=== PATIENT | male | born 1980 | race Caucasian/White ===

== ENCOUNTER 2024-10-03 13:09 | Emergency (ER) | payer MEDICAID, SELFPAY ==
[2024-10-03 13:17] VITALS: BP 168/110; PULSE 65; TEMP 36.8; O2SAT 95; BMI 44.6
--- NOTE | 2024-10-03 13:22 | XR_ITS ---
[address] [address] Patient Name: ELIANE LOYOLA MRN: [id number] date: 1980 Sex: M Assigned Patient Location: ER Current Patient Location: Accession/Order Number: [id number] Exam Date: 10/03/2024 13:35 Report Date: 10/03/2024 14:05 At the request of: RABIA REBOLLAR Procedure: XR knee RT 4V PROCEDURE: XR knee RT 4V COMPARISON: None. HISTORY: fall FINDINGS: BONES:No acute fracture or dislocation. Mild narrowing of medial joint space. Marginal osteophyte formation SOFT TISSUES:Negative. No visible soft tissue swelling. EFFUSION:None visible. OTHER: Negative. XR/XR knee RT 4V IMPRESSION: Mild osteoarthritis. Electronically authenticated by: VLAD CORONA Date: 10/03/2024 14:05
--- NOTE | 2024-10-03 13:27 | ED.LOWEXI1 ---
HPI HPI - Extremity Injury (Lower) General Chief Complaint: Extremity Injury, Lower Stated Complaint: PAIN IN LOWER EXTRIMITY Time Seen by Provider: 10/03/24 13:20 Source: patient Mode of arrival: walk-in Limitations: no limitations History of Present Illness HPI Narrative: Patient is a 44-year-old male who presents to the emergency department for 2-week history of right knee pain which was exacerbated today when the patient was shoveling snow and twisted his knee. He denies any fall or direct injury to the area. He reports pain in the anterior knee both medially and laterally. No medications taken prior to arrival. He is able to ambulate but reports pain with doing so Related Data Home Medications ?Medication ?Instructions ?Recorded ?Confirmed lisinopril 20 mg tablet 20 mg PO DAILY 10/03/24 10/03/24 rosuvastatin 10 mg tablet 10 mg PO DAILY 10/03/24 10/03/24 Previous Rx's ?Medication ?Instructions ?Recorded hydrocodone 5 mg-acetaminophen 325 1 tab PO Q6H PRN pain 3 days #12 10/03/24 mg tablet tabs methocarbamol 750 mg tablet 750 mg PO TID PRN pain #20 tabs 10/03/24 methylprednisolone 4 mg tablets in See Rx Instructions .Route 10/03/24 a dose pack (Medrol (Tyrel)) .COMPLEX #21 ea Allergies Allergy/AdvReac Type Severity Reaction Status Date / Time sulfamethoxazole (From Allergy Severe Rash Verified 10/03/24 13:21 Bactrim) trimethoprim (From Bactrim) Allergy Severe Rash Verified 10/03/24 13:21 Opioid HPI Opioid Management Most Recent Pain and Opioid Data: No Data to Display Review of Systems ROS Constitutional Denies: fever or chills Ears, nose, mouth, and throat Denies: throat pain or nasal congestion Cardiovascular Denies: chest pain Respiratory Denies: shortness of breath or cough Gastrointestinal Denies: nausea or vomiting Musculoskeletal Reports: extremity pain, extremity swelling, joint pain and limited range of motion; Denies: back pain or neck pain Integumentary/Breast Denies: rash Neurological Denies: numbness in extremities or weakness in extremities Hematologic/Lymphatic Denies: easy bruising or easy bleeding PFSH PFSH Social History Little interest or pleasure in doing things: not at all Feeling down, depressed, or hopeless: not at all Exam Narrative Exam Narrative: Gen.: Awake, alert, in no distress Head: Normocephalic, atraumatic ENT: Moist mucous membranes Respiratory: No respiratory distress Extremities: Tenderness to the right anterior knee with no significant joint effusion noted, patella is stable with no laxity. No bony tenderness of the right anterior tibia. Normal dorsiflexion and plantarflexion of the right lower extremity. No posterior tenderness of the right knee Psych: Normal mood and affect Neuro: No focal neuro deficit Skin: Warm, dry, intact Constitutional Vital Signs, click to edit/add: Last Vital Signs Temp 98.2 F 10/03/24 13:17 Pulse 65 10/03/24 13:17 Resp 20 10/03/24 13:17 BP 168/110 H 10/03/24 13:17 Pulse Ox 95 10/03/24 13:17 O2 Del Method Room Air 10/03/24 13:17 Course Vital Signs Vital signs: Vital Signs Temperature 98.2 F 10/03/24 13:17 Pulse Rate 65 10/03/24 13:17 Respiratory Rate 20 10/03/24 13:17 Blood Pressure 168/110 H 10/03/24 13:17 Pulse Oximetry 95 10/03/24 13:17 Oxygen Delivery Method Room Air 10/03/24 13:17 Temperature 98.2 F 10/03/24 13:17 Pulse Rate 65 10/03/24 13:17 Respiratory Rate 20 10/03/24 13:17 Blood Pressure 168/110 H 10/03/24 13:17 Pulse Oximetry 95 10/03/24 13:17 Oxygen Delivery Method Room Air 10/03/24 13:17 MDM - Extremity Injury (Lower) MDM Narrative Medical decision making narrative: X-rays of the right knee show the patient has mild osteoarthritis with no other acute abnormalities. He is placed in an Ariel wrap, short course of analgesics, steroid taper and muscle relaxants given for home. Follow-up with orthopedics and return to the ER if symptoms change or worsen. Rest, ice, elevate. He is neurovascularly intact at discharge. SHARED APC VISIT, PHYSICIAN ATTESTATION: [id number] I performed a substantive part of the MDM during the patient?s E/M visit. I personally evaluated and examined the patient. I personally made or approved the documented management plan and acknowledge its risk of complications. . Medical Records Attestation: I reviewed the patient's medical records. Imaging Data XR knee: Attestation: I have reviewed the pertinent imaging results. Radiologist's impression: ITS Impressions Knee X-Ray 10/03/24 13:22 IMPRESSION: Mild osteoarthritis. Electronically authenticated by: VLAD CORONA Date: 10/03/2024 14:05 Discharge Plan Discharge Chief Complaint: Extremity Injury, Lower Clinical Impression: Pain in right knee, Right knee sprain Patient Disposition: Home, Self-Care Time of Disposition Decision: 14:10 Condition: Good Prescriptions / Home Meds: New hydrocodone-acetaminophen 5-325 mg tablet 1 tab PO Q6H PRN (Reason: pain) 3 Days Qty: 12 0RF Rx Instructions: M25.561 methocarbamol 750 mg tablet 750 mg PO TID PRN (Reason: pain) Qty: 20 0RF methylprednisolone [Medrol (Tyrel)] 4 mg tablets,dose pack See Rx Instructions .ROUTE .COMPLEX Qty: 21 0RF Rx Instructions: Taper as directed No Action lisinopril 20 mg tablet 20 mg PO DAILY rosuvastatin 10 mg tablet 10 mg PO DAILY Print Language: Indian Instructions: Knee Sprain (ED), Knee Pain (ED) Referrals: Physician,Non-Staff, [Physician] - 1 week Thuan Enciso MD [Physician] - As needed
[2024-10-03] MEDS: METHOCARBAMOL 500 MG TABLET 1000 MG PO (14:18)
[2024-10-03] MEDS: HYDROCODONE/ACET 5-325 MG TABLET 1 TAB PO (14:18)
[2024-10-03] MEDS: KETOROLAC TROMETHAMINE 10 MG TABLET PO (14:18)
[2024-10-03 14:24] VITALS: BP 152/100; PULSE 87; O2SAT 99
== END 2024-10-03 14:25 | disposition home or self-care (01) ==
PROVIDERS: Emergency Provider Emergency Medicine; PCP Nurse Practitioner
DX: S83.91XA Sprain of unspecified site of right knee, initial encounter (principal); M17.11 Unilateral primary osteoarthritis, right knee; X50.1XXA Overexertion from prolonged static or awkward postures, initial encounter; M25.561 Pain in right knee
CPT/HCPCS: 73564; 99284

== ENCOUNTER 2025-07-28 13:12 | Emergency (ER) | payer MEDICAID, SELFPAY ==
--- OUTSIDE RECORDS SUMMARY | 2025-07-19 14:27 | XMS_ITS | Continuity of Care Document ---
Author Organization [facility] Address [address] [place] [address] Phone Care Team Providers Care Fish And Wildlife Technician Name Role Phone Monica Nath APRN Attending Provider Yaneli Connell Primary Care Provider + Care Teams Patient Care Team Team Status: Active Member Role/Relationship Status Dates ADELE Bernal Primary Care Provider Active Patient Care Team Team Status: Inactive Member Role/Relationship Status Dates Monica Nath APRN Attending Provider Active Start: July 19, 2025 End: July 19, 2025[facility] ProviderActive Start: July 19, 2025 End: July 19, 2025 Chief Complaint and Reason for Visit Chief Complaint Admit Date Cough, congestion July 19, 2025 5 :45pm Allergies, Adverse Reactions, Alerts Allergen Type Severity Reaction Last Updated Verified Status Sulfa (Sulfonamide Antibiotics) Allergy Unknown swelling July 19 5:47pm Yes Active Social History Smoking Status Status Start Date End Date Date of Observa tion Never smoked tobacco (finding) August 10, 2024 9:07am Observation Status Observation Response Date of Response Legal Sex [facility] (finding) [facility] 1979 Family History Relationship Condition Age at Onset Recorded Date/T ernesto father Malignant neoplasm Unknown motherDiabetes mellitusUnknown Problems Active Problems Problem Diagnosis/Recorded Date Onset Date Stat us Acute embolism and thrombosi s of unspecified deep veins of right lower extremity July 19, 2025 5:48pm Unknown Active Viral URI with cough August 10, 2024 11:03am Unkno wn Active Benign essential HTN December 08, 2023 3:27pm Unknown Active Cough August 10, 2024 11:01am Unknown Active Hyperlipidemia December 08, 2023 3:27pm Unknown Ac tive Laryngitis August 10, 2024 10:42am Unknown Active 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, 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 Unknown Active Asthma December 08, 2023 3:27pm Unknown Acti ve Medications Medication Status Dose Units Route Directions Qty Days Refills S tart Date Stop Date End Date Reason(s) Instructions Adherence [facility] 10 [facility] 12:00amComplies with drug therapyLisinopril 20 mg tablet ActiveM[facility] 2023 12:00amComplies with drug therapyAlbuterol Sulfate 90 mcg/actuation HFA aerosol nwkdjxiNznpyonehset6QURHXEIDWSTMIJF5E2049Eakrg 2023 12:00amNoveer 2023 10:06amMethylprednisolone (Medrol (Tyrel)) 4 mg tablets,dose rebcGpmkmdvlytfj8EJmdg package vsdhukhemu811Oyiyr 2023 12:00amNoveer 2023 10:06amPO PER PKG DIR for 6 daysAlbuterol Sulfate 2.5 mg /3 mL (0.083 %) solution for nebulizationDiscontinued2.9WAYNPSROTBYTT1X as needed for shortness of breath or vuscfyog8301Pvbar 2023 12:00amNoveer 2023 10:06amApixaban (Eliquis) 5 mg dsskcbEysrgg5NMCXGeqzl dailyOctober 2024 12:00amComplies with drug therapyAlbuterol Sulfate 90 mcg/actuation HFA aerosol drueeevBafeqd8ORDXESKIAYUENPIqtek 6 hours as neededOctober 2024 12:00amComplies with drug therapy Relevant Diagnostic Tests and/or Laboratory Data Laboratory Results Test Collection Date/Time Result Date/Time Result Interpretation Reference Range Result Comment Performing Site POC SARS CoV-2 Antigen July 19, 2025 5:56pm Octob er 2024 6:17pm Negative Influenza Type A (Rapid)July 19, 2025 5:56pmOctober 2024 6:17pm NegativeInfluenza Type B (Rapid)July 19, 2025 5:[facility] 2024 6:17pmNegative Vital Signs Vital Reading Result Reference Range Collection Date/Time Height 68 [in_i] July 19, 2025 5:69vjNehbxr701.54 [facility] 20[facility] 5:48pmBody Ibrjbdutupa39.4 [degF]97.6-99.0[facility] 2024 5:48pmHeart Rate90 /ywz43-488 July 19, 2025 5:48pmRespiratory rate18 /ixr30-02Fqladwv 2024 5:48pm Oxygen saturation by Pulse scpovauv46 %95-100[facility]2024 5:48pmBP Ngazkjwy323 mm[Hg]100-140[facility] 2024 5:48pmBP Glcivlvmk307 mm[Hg]60-100 July 19, 2025 5:48pmBMI (Body Mass Index)47.7 kg/g5Pwovngg 2024 5:48pm Advance Directives Advance Directive Response Recorded Date/ Time Advance Directives No December 07 024 3:09pm Insurance Providers Guarantor Nik Hamilton l Address [address] [facility] [id number] Info.Home Phone: Coverage Status Update:2024 Payer Group Member ID Coverage Type Subscriber Relationship to Subscriber Effective Date Expiration Date Jeffery HARDWICK/CHUNG [id number] T Petkrystynael Id: [id number] [address] [facility] [address] Home Phone: SelfAnthem [place] Medicaid Id: [id number] T Pethtel Id: [id number] [address] [facility] [address] Home Phone: Self Encounters Encounter Location(s) Arrival/Admit Date Discharge/Departure Date Discharge/Departure Disposition Provider(s) Departed Physician/ Provider Office Visit -[facility] July 19, 2025 5:45pm July 19, 2025 6:26pm Discharged to home care or self care (routine discharge) Bereket Carlson APRN
[2025-07-28] VITALS (10 sets, daily range): BP systolic 148–150; BP diastolic 88–102; PULSE 61–91; TEMP 36.7; O2SAT 93–94; BMI 48.2
--- NOTE | 2025-07-28 13:36 | ECG_ITS ---
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 Measurements Intervals [place] Rate: 74 P: 33 IL: 158 QRS: -35 QRSD: 96 T: 39 QT: 380 QTc: 408 Interpretive Statements 1100 Sinus rhythm 7200 Abnormal left axis deviation 8003 Consistent with pulmonary disease 9150 abnormal ECG No previous ECG available for comparison Electronically Signed On 07-28-2025 18:07:49 EDT by OLGA RICHARDS M.D.
--- NOTE | 2025-07-28 13:38 | ED.GENADUL1 ---
HPI HPI - General Adult General Chief complaint: Upper Respiratory Infection Stated complaint: URTI COMPLAINTS Time Seen by Provider: 07/28/25 13:23 Source: patient Mode of arrival: walk-in Limitations: no limitations History of Present Illness HPI narrative: Patient is a 45-year-old male with a past medical history of asthma that presents to the emergency department with complaints of 1 month of cough, wheezing, SOB, and chest pain/tightness. Patient states a month ago he was sick and has persisted to have a cough and SOB/wheezing. He has been doing albuterol breathing treatments at home twice a day along with his rescue inhaler. Last Thursday he went to urgent care and was given doxycycline and prednisone. He has finished the steroids and has 1 more day of the doxycycline. He notes that he once had pneumonia about 6 times in 1 year, this was a few years ago. He also had a right knee replacement in November and had a DVT in the right lower extremity afterwards. He has just finished his 3 months of Eliquis and is on break in from the medication. Related Data Home Medications ?Medication ?Instructions ?Recorded ?Confirmed lisinopril 20 mg tablet 20 mg PO DAILY 10/03/24 10/03/24 rosuvastatin 10 mg tablet 10 mg PO DAILY 10/03/24 10/03/24 Previous Rx's ?Medication ?Instructions ?Recorded hydrocodone 5 mg-acetaminophen 325 1 tab PO Q6H PRN pain 3 days #12 10/03/24 mg tablet tabs methocarbamol 750 mg tablet 750 mg PO TID PRN pain #20 tabs 10/03/24 methylprednisolone 4 mg tablets in See Rx Instructions .Route 10/03/24 a dose pack (Medrol (Tyrel)) .COMPLEX #21 ea prednisone 50 mg tablet 50 mg PO DAILY 5 days #5 tabs 07/28/25 Allergies Allergy/AdvReac Type Severity Reaction Status Date / Time sulfamethoxazole (From Allergy Severe Rash Verified 07/28/25 13:17 Bactrim) trimethoprim (From Bactrim) Allergy Severe Rash Verified 07/28/25 13:17 Opioid HPI Opioid Management Most Recent Opioid Data: Last Pain Scale 6 10/03/24, 14:18 Review of Systems ROS Status of ROS 10 or more systems reviewed and unremarkable except as noted in history and below PFSH PFSH Social History Little interest or pleasure in doing things: not at all Feeling down, depressed, or hopeless: not at all Exam Narrative Exam Narrative: General: No distress, age-appropriate Skin: Warm, dry, no pallor. No rash. Head: Normocephalic, atraumatic. Neck: Supple, non-tender. Eye: Pupils are equal, round and EOMI. No scleral icterus. Ears, Nose, Mouth, and Throat: No nasal mucosal hypertrophy. Oral mucosa is moist, no posterior oropharynx erythema, uvula is mid-line Cardiovascular: Regular Rate and Rhythm without murmur, gallop or rub. Respiratory: No accessory muscle use or respiratory distress. Expiratory wheezing throughout bilateral lung clifton, no rales or rhonchi Chest Wall: no tenderness Musculoskeletal: Full ROM of all extremities, no calf or popliteal tenderness GI: Abdomen is soft, non-distended, non tender to palpation. No masses appreciated. No rebound, guarding, or rigidity noted. Neurological: A&O x4. No cranial nerve dysfunction observed. No truncal ataxia. Moves all extremities. Sensation intact. Psychiatric: Cooperative and interactive. Normal mood and affect. Constitutional Vital Signs, click to edit/add: Last Vital Signs Temp 98.0 F 07/28/25 13:17 Pulse 74 07/28/25 14:42 Resp 20 07/28/25 13:17 BP 150/102 H 07/28/25 13:17 Pulse Ox 93 L 07/28/25 14:42 O2 Del Method Room Air 07/28/25 14:42 Course Vital Signs Vital signs: Vital Signs Temperature 98.0 F 07/28/25 13:17 Pulse Rate 84 07/28/25 13:17 Respiratory Rate 20 07/28/25 13:17 Blood Pressure 150/102 H 07/28/25 13:17 Pulse Oximetry 94 L 07/28/25 13:17 Oxygen Delivery Method Room Air 07/28/25 13:17 Temperature 98.0 F 07/28/25 13:17 Pulse Rate 74 07/28/25 14:42 Respiratory Rate 20 07/28/25 13:17 Blood Pressure 150/102 H 07/28/25 13:17 Pulse Oximetry 93 L 07/28/25 14:42 Oxygen Delivery Method Room Air 07/28/25 14:42 Medical Decision Making MDM Narrative Medical decision making narrative: This is a 45-year-old male that presented to the ED with complaints of 1 month of cough, SOB, and chest tightness. He has a history of asthma and has been using his inhaler and breathing treatments morning and evening. He did have his right knee replaced in November and had a DVT afterwards. He just finished 3 months of Eliquis and had a repeat ultrasound that showed he still had a DVT in his RLE. He was following with Dr Earl in [place], [place]. He went to urgent care last week, doxycycline and prednisone given. He has 1 more day of doxycycline left. He denies any fevers, night sweats, or chills. He denies history of cancer. He states that he had pneumonia about 6 times in 1 year, this was a few years ago. On exam patient is in no distress, coughs on exam with deep inspiration, expiratory wheezes noted throughout lung clifton bilaterally but patient is moving air. BP is hypertensive 150/102, pulse is 84. Temp is afebrile 98 ?F. IV placed, EKG, troponin, CBC, CMP ordered. CTA chest ordered to eval for PNA or PE. EKG on arrival reviewed and notes normal sinus rhythm, abnormal left axis deviation consistent with pulmonary disease. DuoNeb and 125 mg Solu-Medrol IV ordered. CTA negative for PE or consolidation or effusion. Troponin WNL, no leukocytosis, lytes WNL. On reexamination wheezing has resolved, patient reports decreased SOB. I discussed results with him and will discharge to home given his stability in the ED. He has not required any supplemental oxygen and exhibited no respiratory distress. We discussed continuing his current asthma medications and regimen. Will give him a prednisone 50 mg x 5-day burst. I urged him to call his PCP today to get an appointment for next week. Patient will return to the ED with any new or worsening symptoms. Patient discharged in stable condition with plan for close PCP follow-up. Differential Diagnosis Differential Diagnosis: Asthma, PNA, PE, bronchitis Lab Data Lab results reviewed: Yes I reviewed the patient's lab results Labs: Lab Results 07/28/25 Range/Units 13:50 WBC 10.3 (4.0-11.0) 10^3/uL RBC 4.72 (4.70-6.10) 10^6/uL Hgb 15.9 (14.0-18.0) g/dL Hct 43.6 (42.0-54.0) % MCV 92.4 (80.0-94.0) fL MCH 33.7 (25.9-34.0) pg MCHC 36.5 H (29.9-35.2) g/dL RDW 14.2 (11.0-15.0) % Plt Count 273 (150-450) 10^3/uL MPV 10.2 (9.5-13.5) fL Neut % (Auto) 85.1 H (43.0-75.0) % Lymph % (Auto) 9.5 L (20.5-60.0) % Cavalier % (Auto) 4.0 (1.7-12.0) % Eos % (Auto) 0.8 L (0.9-7.0) % Baso % (Auto) 0.2 (0.2-2.0) % Neut # (Auto) 8.8 H (1.4-6.5) 10^3/uL Lymph # (Auto) 1.0 L (1.2-3.8) 10^3/uL Cavalier # (Auto) 0.4 (0.3-0.8) 10^3/uL Eos # (Auto) 0.1 (0.0-0.7) 10^3/uL Baso # (Auto) 0.0 (0.0-0.1) 10^3/uL Abs Immat Gran (auto) 0.04 H (0.00-0.03) 10^3/uL Imm/Tot Granulo (auto) 0.4 (0.0-0.5) % Sodium 139 (136-145) mmol/L Potassium 4.1 (3.5-5.1) mmol/L Chloride 103 (98-107) mmol/L Carbon Dioxide 29.1 (21.0-32.0) mmol/L Anion Gap 11.0 BUN 12.0 (7.0-18.0) mg/dL Creatinine 0.81 (0.70-1.30) mg/dL Est GFR ( Amer) >60 (>=60 mL/min/1.73m^2) Est GFR (Non-Af Amer) >60 (>=60 mL/min/1.73m^2) BUN/Creatinine Ratio 14.8 Glucose 146 H (74-106) mg/dL Calcium 8.7 (8.5-10.1) mg/dL Total Bilirubin 1.3 H (0.2-1.0) mg/dL AST 24 (15-37) U/L ALT 38 (16-63) U/L Alkaline Phosphatase 75 (46-116) U/L Troponin I High Sens 6.7 (4.0-76.1) pg/mL Total Protein 6.9 (6.4-8.2) g/dL Albumin 3.7 (3.4-5.0) g/dL Globulin 3.2 g/dL Albumin/Globulin Ratio 1.[address] scan - chest: Attestation: I have reviewed the pertinent imaging results. Radiologist's impression: ITS Impressions Chest CTA 07/28/25 13:44 IMPRESSION: NO EVIDENCE OF ACUTE PULMONARY EMBOLISM OR PROCESS. Impression dictated by: Manny Ivey Jr., D.OMarva 07/28/2025 2:41 PM Dictation Location: [employer] Electronically authenticated by: [id number] Y Date: 07/28/2025 14:41 ECG Data Attestation: ?I have reviewed the pertinent ECG results. Discharge Plan Discharge Chief Complaint: Upper Respiratory Infection Clinical Impression: Asthma exacerbation Patient Disposition: Home, Self-Care Time of Disposition Decision: 15:07 Condition: Good Mode of Transportation: Private Vehicle Prescriptions / Home Meds: New prednisone 50 mg tablet 50 mg PO DAILY 5 Days Qty: 5 0RF No Action lisinopril 20 mg tablet 20 mg PO DAILY rosuvastatin 10 mg tablet 10 mg PO DAILY hydrocodone-acetaminophen 5-325 mg tablet 1 tab PO Q6H PRN (Reason: pain) 3 Days Qty: 12 0RF Rx Instructions: M25.561 methocarbamol 750 mg tablet 750 mg PO TID PRN (Reason: pain) Qty: 20 0RF methylprednisolone [Medrol (Tyrel)] 4 mg tablets,dose pack See Rx Instructions .ROUTE .COMPLEX Qty: 21 0RF Rx Instructions: Taper as directed Print Language: Polish Instructions: Chronic Lung Disease and Infection Prevention (ED) Referrals: USAMA LOVELL [Primary Care Provider, Unknown] - 1 week Discharge Date/Time: 07/28/25 15:18
--- NOTE | 2025-07-28 13:44 | CT_ITS ---
[address] [address] Patient Name: ELIANE LOYOLA MRN: [id number] date: 1980 Sex: M Assigned Patient Location: ER Current Patient Location: .[facility] Accession/Order Number: [id number] Exam Date: 07/28/2025 14:24 Report Date: 07/28/2025 14:41 At the request of: RAFAEL BEAL Procedure: CT angio chest CT ANGIOGRAM OF THE CHEST, PULMONARY EMBOLISM PROTOCOL: CLINICAL INFORMATION: Shortness of breath and cough for one month. History of DVT. COMPARISON: None TECHNIQUE: Following intravenous injection of contrast CT scans of the chest were obtained using pulmonary embolism protocol. Coronal and sagittal reconstructed images, as well as volume rendered CT pulmonary angiographic images were also submitted.The CT exam was performed using one or more of the following dose reduction techniques: Automated exposure control, adjustment of the MA and/or Kv according to patient size, or use of the iterative reconstruction technique. FINDINGS: Pulmonary Vasculature: Contrast bolus is adequate for evaluation of pulmonary embolism. Pulmonary trunk appears nondilated. No filling defects are identified to suggest pulmonary embolism. Mediastinum : Thoracic aorta is normal in caliber. No pericardial effusion. No lymphadenopathy. The esophagus is grossly unremarkable. Lungs: Expiratory phase of imaging. No consolidation pneumothorax or pleural effusion. Upper abdomen: No acute findings Soft tissue/bones: Soft tissues surrounding the chest wall demonstrate no acute findings. Osseous structures demonstrate degenerative change. CT/CT angio chest IMPRESSION: NO EVIDENCE OF ACUTE PULMONARY EMBOLISM OR PROCESS. Impression dictated by: Manny Ivey Jr., D.O. 07/28/2025 2:41 PM Dictation Location: [employer] Electronically authenticated by: [id number] Y Date: 07/28/2025 14:41
[2025-07-28 13:59] LABS: Hematocrit 43.6 % (42.0-54.0); Hemoglobin 15.9 g/dL (14.0-18.0); Immature Granulocytes Abs Auto 0.04 10^3/uL (0.00-0.03); Immature Granulocytes Pct Auto 0.4 % (0.0-0.5); Lymphocytes Absolute Auto 1.0 10^3/uL (1.2-3.8); Mean Corpuscular HGB Conc 36.5 g/dL (29.9-35.2); Mean Corpuscular Hemoglobin 33.7 pg (25.9-34.0); Mean Corpuscular Volume 92.4 fL (80.0-94.0); Platelet Count 273 10^3/uL (150-450); Red Blood Count 4.72 10^6/uL (4.70-6.10); White Blood Count 10.3 10^3/uL (4.0-11.0)
[2025-07-28 14:14] LABS: Alanine Aminotransferase 38 U/L (16-63); Albumin Globulin Ratio 1.2; Albumin Level 3.7 g/dL (3.4-5.0); Alkaline Phosphatase 75 U/L (46-116); Anion Gap 11.0; Aspartate Amino Transferase 24 U/L (15-37); Blood Urea Nitrogen 12.0 mg/dL (7.0-18.0); Calcium 8.7 mg/dL (8.5-10.1); Carbon Dioxide 29.1 mmol/L (21.0-32.0); Chloride 103 mmol/L (98-107); Estimated GFR (African America >60 (>=60 mL/min/1.73m^2); Estimated GFR (Non-African Ame >60 (>=60 mL/min/1.73m^2); Globulin 3.2 g/dL; Glucose 146 mg/dL (74-106); Potassium 4.1 mmol/L (3.5-5.1); Sodium 139 mmol/L (136-145); Total Protein 6.9 g/dL (6.4-8.2)
--- OUTSIDE RECORDS SUMMARY | 2025-07-28 14:15 | XMS_ITS | Encounter Summary ---
Author Organization [facility] tem Address [id number] [address] [place] [address] Care Team Providers Care Tool Design Draftsperson Name Role Phone Roberto Carlos Cardoza APRN-ACTUARIAL DIRECTOR Primary Care Provider + Encounter Details DateTypeDepartmentCare Team (Latest Contact Info)Llnfiucfifp30/24/2025Telephone [facility] Internal Medicine - Family Medicine [address] [place] [phone] Ban Castillo CMA Social History Tobacco UseTypesPacks/DayYears UsedDateSmoking Tobacco: NeverSmokeless Tobacco: NeverAlcohol UseStandard Drinks/WeekCommentsNot Currently0 (1 standard drink = 0.6 oz pure alcohol)[facility] UtilitiesAnswerDate RecordedIn the past 12 months has the electric, gas, oil, or water company threatened to shut off services in your home?12/15/2024Social Connection and Isolation PanelAnswerDate RecordedIn a typical week, how many times do you talk on the phone with family, friends, or neighbors?More than three times a week12/15/2024How often do you get together with friends or relatives?More than three times a week12/15/2024How often do you attend restorationism or restorationism services?More than 4 times per year12/15/2024Do you belong to any clubs or organizations such as restorationism groups, unions, fraternal or athletic groups, or school groups?No12/15/2024How often do you attend meetings of the clubs or organizations you belong to?Never12/15/2024re you , , , , never , or living with a partner? 12/15/2024UDIT-CAnswerDate RecordedQ1: How often do you have a drink containing alcohol?Never12/15/2024Q2: How many drinks containing alcohol do you have on a typical day when you are drinking?Patient does not drink12/15/2024Q3: How often do you have six or more drinks on one occasion?Never12/15/2024Overall Financial Resource Strain (CARDIA)AnswerDate RecordedHow hard is it for you to pay for the very basics like food, housing, medical care, and heating?Not hard at all 12/15/2024PHQ-2AnswerDate RecordedTotal Vegnk260Finintermountain healthcare [place] of Occupational Health - Occupational Stress QuestionnaireAnswerDate RecordedDo you feel stress - tense, restless, nervous, or anxious, or unable to sleep at night because yourmind is troubled all the time - these days?Not at all12/15/2024 Exercise Vital SignAnswerDate RecordedOn average, how many days per week do you engage in moderate to strenuous exercise (like a brisk walk)?5 days10/09/2021n average, how many minutes do you engage in exercise at this level?90 min 10/09/2021RAPARE - TransportationAnswerDate RecordedIn the past 12 months, has lack of transportation kept you from medical appointments or from getting medications?No12/15/2024In the past 12 months, has lack of transportation kept you from meetings, work, or from getting things needed for daily living?No 12/15/2024Housing InstabilityAnswerDate RecordedAre you worried or concerned that in the next two months you may not have stable housing that you own, rent or stay in as a part of a household?No12/15/2024hildcareAnswerDate RecordedDo problems getting child support officer make it difficult for you to work or study?No 12/15/2024EmploymentAnswerDate RecordedDo you need help finding a local career center and/or a training program?No12/15/2024Hunger ScreeningAnswerDate Recorded Within the past 12 months we worried whether our food would run out before we got money to buy more.Never True02/28/2025Within the past 12 months the food we bought just didn't last and we didn't have money to get more.Never True 02/28/2025Purpose - LifeAnswerDate RecordedI have a purpose and direction in my life.Strongly Agree12/15/2024EducationAnswerDate RecordedWhat is the highest level of school you have completed or the highest degree you have received? Bachelor's degree (e.g., BA, AB, BS)10/09/2021ex and Gender InformationValue Date RecordedSex Assigned at BirthNot on fileLegal QfhVflq6010/10/2015 11:10 AM ESTGender IdentityNot on fileSexual OrientationNot on filedocumented as of this encounter Miscellaneous Notes * Telephone Encounter - Ban Castillo CMA - 07/21/2025 12:16 PM EDT Patient is having a tight chest and bringing up very little phlegm . He stated his chest hurts to cough He was seen at urgent care and they did not do a chest xr. [facility] since he is not getting better? * Telephone Encounter - Rocky Stauffer DO - 07/21/2025 12:16 PM EDT I read his urgent care note. They thought he did have a lower respiratory tract infection and they did put him on doxycycline which should work for that. I probably would not change anything. I am not sure what advantage it would be to check a chest x-ray right now. Maybe if he does not get any better then check one. * Telephone Encounter - Ban Castillo CMA - 07/21/2025 12:16 PM EDT NOTIFIED PATIENT documented in this encounter Plan of Treatment DateTypeDepartmentCare Team (Latest Contact Info)Bhgkrrwxqac96/02/2025 7:00 AM ESTOffice Visit [facility] [address] [place] [address] Roberto Carlos Cardoza, MANUFACTURING ASSISTANT-ACTUARIAL DIRECTOR [address], [address] [address] documented as of this encounter Goals GoalPatient Goal TypeAssociated ProblemsRecent ProgressPatient-Stated?Author home Eloisa Cormier LSW Note: Evaluation of progress towards goal: just back from [place], plan is home going with and outpt therapy at [facility] documented as of this encounter Visit Diagnoses Not on filedocumented in this encounter Additional Health Concerns AssessmentNoted TimePHQ-9 Depression Total Score: 6:54 AM EDTA Body Mass Index follow-up plan has been documented for the ixzftbq1502/28/2025 7:30 AM EDTdocumented as of this encounter Care Teams Team MemberRelationshipSpecialtyStart DateEnd Date Roberto Carlos Cardoza, MANUFACTURING ASSISTANT-ACTUARIAL DIRECTOR [address] [place] [address] PCP - GeneralInternal Medicine05/25/25documented as of this encounter
--- OUTSIDE RECORDS SUMMARY | 2025-07-28 14:15 | XMS_ITS | Clinical Summary ---
Author Organization [employer] [facility] tem Address [id number] [address] [place] [address] Care Team Providers Care Inspector Rubber Stamp Die Name Role Phone Roberto Carlos Cardoza APRN-RECREATION THERAPY AIDES TEACHER Primary Care Provider + Allergies Active AllergyReactionsCriticalityNoted AeyeZqyexmdaCnbbwydupwSzhozieu57/30/2017 NnjtppeifpOmfkfawo88/07/2025Sulfa (Sulfonamide Antibiotics)Iytodxlg98/30/2017 Medications MedicationSigDispense QuantityRefillsLast FilledStart DateEnd DateStatus albuterol (PROVENTIL,VENTOLIN) 2.5 mg /3 mL (0.083 %) nebulizer solution Indications:Pneumonia of right lower lobe due to infectious organism,Mild intermittent asthma with acute exacerbationInhale 3 mL (2.5 mg total) by nebulization every 6 (six) hours as needed for wheezing or shortness of breath. 300 mL Active albuterol (VENTOLIN HFA) 90 mcg/actuation inhaler Indications:Mild intermittent asthma without complicationInhale 2 puffs every 6 (six) hours as needed for wheezing or shortness of breath. 18 g 3Active cholecalciferol, vitamin D3, 5,000 units tablet Indications:Vitamin D deficiencyTake 1 tablet (5,000 Units total) by mouth in the morning. 30 each 5Active apixaban (ELIQUIS) 5 mg tablet Indications:Acute deep vein thrombosis (DVT) of right lower extremity, unspecified vein (CMS-HCC)Take 1 tablet (5 mg total) by mouth in the morning and 1 tablet (5 mg total) before bedtime. 60 tablet 505Active rosuvastatin (CRESTOR) 10 mg tablet Indications:Mixed hyperlipidemiaTake 1 tablet (10 mg total) by mouth in the morning. 90 tablet 5Active lisinopriL (PRINIVIL,ZESTRIL) 20 mg tablet Indications:Essential hypertensionTake 1 tablet (20 mg total) by mouth in the morning. 90 tablet 5Active Active Problems ProblemNoted DateDiagnosed DatePrimary osteoarthritis of right knee12/15/2024 Mild intermittent asthma without kdzjnfiqumdq70/24/2020Abnormal EKG012/21/2018 Abnormality of heart beat11/17/2018Chronic stasis cehwgnpjmx80/23/2017Arthritis of right knee04/02/20178383Ordotkylzhnwpv68/06/2017Family history of malignant neoplasm of prostate in fvctjh0504/02/2017Screening PSA (prostate specific antigen)04/02/2017Morbid bjvneam7204/02/2017Essential hypertensionMyotonic dystrophy Resolved Problems ProblemNoted DateDiagnosed DateResolved EuxlGsssjghoh94 Doocjolclft20Blood tests for routine general physical zebzraiigqz631Acute conjunctivitis of both eyes04/27/2018 11/17/2018Left corneal dcityomx04Urinary /17/2018 09/25/2020Urinary vtnrkrgku63Impacted cerumen of both ears Otitis azqdfmq42Encounter for weight loss ufeqvezush31Adult body mass index 35.0-35.9010/28/2017 1Pneumonia of right lower lobe due to infectious dbrkxlce77/13/2017 01/12/2018Mild persistent asthma without iyefckcduvbl721Cough Chronic pain of right kneeAsthma 11/02/2017 Encounters DateTypeDepartmentCare TttyDroxeemiceb60/24/2025Telephone [facility] - [facility] [address] [place] [address] Ban Castillo, [facility] 06/06/2025Refill [facility] - Family Medicine [address] [place] [address] Serena Frias, [facility] Mixed hyperlipidemia; Essential vfinooqacmcj18/13/2025Orders Only [facility] [address] [place] [phone] Daniel Earl MD Acute deep vein thrombosis (DVT) of right lower extremity, unspecified vein ([facility])05/10/2025Refill [facility] - Family Medicine [address] [place] [address] Nic Barfield, [facility] Acute deep vein thrombosis (DVT) of right lower extremity, unspecified vein ([facility])05/07/2025Refill [facility] - Family Medicine [address] [place] [address] Yaneli Connell, FLATWORK IRONER-RECREATION THERAPY AIDES TEACHER Acute deep vein thrombosis (DVT) of right lower extremity, unspecified vein ([facility])05/06/2025Results Follow-Up [facility] [address] [place] [address] Daniel Earl MD Vas venous duplex lwr single right05/04/2025 9:09 AM EDT - 05/04/2025 11:59 PM EDTHospital Encounter [facility] - [facility] [address] [place] [phone] Daniel Earl MD Acute deep vein thrombosis (DVT) of distal vein of right lower extremity ([facility]) Discharge Disposition: Home05/02/2025Travelfrom Last 3 Months Family History Medical HistoryRelationNameCommentsDiabetesFatherHypertensionFatherDiabetes Maternal GrandmotherDiabetesMotherAsthmaSisterAnesthesia problemsNeg HxBleeding DisorderNeg HxRelationNameStatusCommentsFatherAliveMaternal GrandmotherMother AliveSister Social History Tobacco UseTypesPacks/DayYears UsedDateSmoking Tobacco: NeverSmokeless Tobacco: Never Tobacco Cessation:Counseling Given: Not Answered Alcohol UseStandard Drinks/WeekCommentsNot Currently0 (1 standard drink = 0.6 oz pure alcohol)[facility] UtilitiesAnswerDate RecordedIn the past 12 months has the electric, gas, oil, or water company threatened to shut off services in your home?No12/15/2024Social Connection and Isolation PanelAnswerDate RecordedIn a typical week, how many times do you talk on the phone with family, friends, or neighbors?More than three times a week12/15/2024How often do you get together with friends or relatives?More than three times a week12/15/2024How often do you attend christian or worship services?More than 4 times per year12/15/2024Do you belong to any clubs or organizations such as christian groups, unions, fraternal or athletic groups, or [...] and heating?Not hard at all 12/15/2024PHQ-2AnswerDate RecordedTotal Sxqvc094Fin[facility] [place] of Occupational Health - Occupational Stress QuestionnaireAnswerDate [...] part of a household?No12/15/2024hildcareAnswerDate RecordedDo problems getting children's aide make it difficult for you to work [...] Date RecordedSex Assigned at BirthNot on fileLegal WvaWvpo1710/10/2015 11:10 AM ESTGender IdentityNot on fileSexual OrientationNot on file Last Filed Vital Signs Vital SignReadingTime TakenCommentsBlood Uom[place]ac521/83655/03/2025 9:39 AM EDT Mnprw8290 9:39 AM CWIFxmejlyfens95.5 ??C (97.7 ??F)02/28/2025 6:55 AM EDTRespiratory Gygz134802/28/2025 6:55 AM EDTOxygen Gonkmrgwzn98%04/03/2025 9:39 AM EDTInhaled Oxygen Concentration--Fasyay989.3 kg (316 lb)04/03/2025 9:39 AM CRAUmjwgm754.7 cm (5' 8 )04/03/2025 9:39 AM EDTBody Mass Index48.05004/03/2025 9:39 AM EDT Plan of Treatment DateTypeDepartmentCare Team (Latest Contact Info)Jaygtksqqpm42/02/2025 7:00 AM ESTOffice Visit [facility] [address] [place] [address] Roberto Carlos Cardoza, FLATWORK IRONER-RECREATION THERAPY AIDES TEACHER [address], [address] [address] Health MaintenanceDue DateLast DoneCommentsDTaP,Tdap and Td Vaccines (1 - Tdap) 1998Influenza Xsurciq7005/29/2025dult BMI Follow Up Plan02/28/2026 02/28/2025Depression Jxkefkoew29dult BMI Wtpyouqlk15/07/2026 04/03/2025Tobacco Rtycurxib69 Goals GoalPatient Goal TypeAssociated ProblemsRecent ProgressPatient-Stated?Author home Eloisa Cormier LSW Note: Evaluation of progress towards goal: just back from [place], plan is home going with and outpt therapy at [facility] Medical Devices ImplantedTypeAreaManufacturerDevice IdentifierShelf Expiration DateModel / Serial / LotComponent Fem 6 Kn Rt Crcte Rtn Legion Branch Por - Sna - [id number] Implanted:Qty: 1 on 12/15/20[facility]: KneeSMITH AND NEPHEW ORTHO05/02/2034 [id number] / NA / [id number] Tibia Baseplate W/Jrny Lock Implanted:Qty: 1 on 12/15/2024 by Raulito Toribio MD at [facility] ImplantRight: KneeSmith & Uiqbfv17/[id number] / NA / [id number] Cr High Flexwith Jrny Lock Articular Insert Xlpe Implanted:Qty: 1 on 12/15/2024 by Raulito Toribio MD at [facility] ImplantRight: KneeSmith & Jihocc51/[id number] / NA / [id number] Branch Porous Tka Implanted:Qty: 1 on 12/15/2024 by Raulito Toribio MD at [facility] ImplantSMIT AND NEPHEW [id number] / / ExplantedTypeAreaManufacturerDevice IdentifierShelf Expiration DateModel / Serial / LotMis Rimmed Pin Sterile Explanted:Qty: 1 on 12/15/2024 by Raulito Toribio MD at [facility] ImplantRight: KneeSmith & [id number] / NA / [id number] Fx 65mm Strl - Sna - [id number] Explanted:Qty: 2 on 12/15/2024 by Raulito Toribio MD at [facility] ImplantRight: KneeSMITH AND NEPHEW ORTHO05/12/2034 [id number] / NA / [id number] Procedures Procedure NamePriorityDate/TimeAssociated DiagnosisCommentsVASC VENOUS DUPLEX LOWER TCMLJCqtnpfr31/07/2025 9:38 AM EDT Acute deep vein thrombosis (DVT) of distal vein of right lower extremity (CMS-HCC) from Last 3 Months Results * Vas venous duplex lwr single right (05/04/2025 9:38 AM EDT)Anatomical Region LateralityModalityVascularRightUltrasoundSpecimen (Source)Anatomical Location / LateralityCollection Method / VolumeCollection TimeReceived Time05/04/2025 10:00 AM EDT Narrative 05/04/2025 8:08 PM EDT Previous: Previous lower extremity venous duplex exam performed 01/30/2025: RIGHT: ACUTE deep calf muscle vein thrombosis (DVT) Right: Minimally dilated noncompressible 1 of 2 deep calf muscle veins with hyperechoic intraluminal content and absent color flow. Remaining visualized deep venous segments are compressible with spontaneous phasic spectral Doppler waveforms. Superficial veins are compressible. Left: Common femoral vein is compressible with spontaneous phasic spectral Doppler waveforms. Conclusions: RIGHT: Deep calf muscle vein thrombosis (DVT), UNDETERMINED AGE. NO EVIDENCE of superficial vein thrombosis of the lower extremity. ??LEFT: NO EVIDENCE ??of deep vein thrombosis (DVT) ofthe common femoral vein. ? When compared to previous ??report significant changes were noted. Recommendations: Any questions prior to finalization, please call the reading physician during normal business hours at the phone number beside their name. Procedure Note Ana Zhao MD - 05/04/2025 Previous: Previous lower extremity venous duplex exam noqgktwns77/05/2025: RIGHT: ACUTE deep calf muscle vein thrombosis (DVT) Right: Minimally dilated noncompressible 1 of 2 deep calf muscle veinswith hyperechoic intraluminal content and absent color flow. Remainingvisualized deep venous segments are compressible with spontaneous phasicspectral Doppler waveforms. Superficial veins are compressible. Left: Common femoral vein is compressible with spontaneous phasic spectral Doppler waveforms. Conclusions: RIGHT: Deep calf muscle vein thrombosis (DVT), UNDETERMINEDAGE. NO EVIDENCE of superficial vein thrombosis of the lower extremity.LEFT: NO EVIDENCE of deep vein thrombosis (DVT) of the common femoralvein. When compared to previous report significant changes were noted. Recommendations: Any questions prior to finalization, please call thereading physician during normal business hours at the phone number besidetheir name. Authorizing ProviderResult TypeResult StatusDrew R Mady [facility] VASCULAR ORDERABLESFinal Result from Last 3 Months Insurance Advance Directives * Full Code (Latest Code Status on File) Date ActivatedDate InactivatedComments12/15/2024 10:40 AM12/16/2024 2:51 PM Care Teams Team MemberRelationshipSpecialtyStart DateEnd Date Roberto Carlos Cardoza, FLATWORK IRONER-RECREATION THERAPY AIDES TEACHER [address] [place] [address] PCP - GeneralInternal Medicine05/25/25
--- OUTSIDE RECORDS SUMMARY | 2025-07-28 14:15 | XMS_ITS | Clinical Summary ---
Author Organization [facility] Address [address] [place] [address] Care Team Providers Care Agricultural Engineering Teacher Name Role Phone Unavailable Primary Care Provider Unavailabl e Social History Tobacco UseTypesPacks/DayYears UsedDateSmoking Tobacco: Never AssessedSex and Gender InformationValueDate RecordedSex Assigned at BirthNot on fileLegal Sex Male12/10/2022 7:47 PM EDTGender IdentityNot on fileSexual OrientationNot on file Plan of Treatment Not on file
--- OUTSIDE RECORDS SUMMARY | 2025-07-28 14:17 | XMS_ITS | CCD ---
Author Organization [facility] Care Team Providers Care Bryologist Name Role Phone Shauna Man APRN Attending Provider Shauna Man Attending Unavailable Shauna Man Admitting Unavailable Connell 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, Usama Rojo Primary Care Provid er Connell 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, Usama Rojo Primary Care Provid er USAMA CONNELL Attending Unavailable USAMA CONNELL Referring Unavailable CONNELL, USAMA Rojo Primary Care Unavailable CONNELL, USAMA J Primary Care Unavailable USAMA CONNELL Attending Unavailable CONNELLGINIUSAMA J Referring Unavailable CONNELL, USAMA J Primary Care Unavailable CONNELL, USAMA Rojo Attending Unavailable CONNELLGINIUSAMA J Referring Unavailable Connell 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, Usama J Primary Care Provid er GINI CONNELLERIAlok Rojo Referring Unavailable CONNELL, USAMA J Primary Care Unavailable INDERJIT HENRY Referring Unavailable CONNELL, USAMA J Primary Care Unavailable DANIEL EARL Attending Unavailable USAMA CONNELL Referring Unavailable CONNELL, USAMA Darrel Primary Care Unavailable DANIEL EARL Attending Unavailable CONNELLGINIUSAMA J Referring Unavailable CONNELL, USMAA J Primary Care Unavailable CONNELL, USAMA J Referring Unavailable CONNELL, USAMA J Primary Care Unavailable TREVOR FRANK Referring Unavailable CONNELL, USAMA J Primary Care Unavailable TREVOR FRANK Referring Unavailable CONNELL, USAMA Darrel Primary Care Unavailable VLAD CUELLAR Attending Unavailable VLAD CUELLAR Referring Unavailable CONNELLUSAMA CESAR Primary Care Unavailable TANNA TORIBIO Admitting Unavailable TANNA TORIBIO Attending Unavailable TANNA TORIBIO Referring Unavailable CONNELL, USAMA Rojo Primary Care Unavailable CONNELL, USAMA J Primary Care Unavailable HANNAH ELMORE Attending Unavailable DANIEL EARL Attending Unavailable DANIEL EARL Referring Unavailable Unavailable Primary Care Provider UnavailRoberto Carlos You Primary Care Provider Monica Nath APRN Attending Provider Usama Kebede Primary Care Provider Allergies Allergy ClassificationReported Allergen(s)Allergy TypeDate of OnsetReaction(s) Facility (6 sources)Sulfonamides (Antibiotic); Translations: [SULFA (SULFONAMIDE ANTIBIOTICS)]Drug allergy (disorder)31-24-1564NbsjuqpibPromedica Memorial Hospital Repository (20 sources)predniSONE; Translations: [PREDNISONE]Drug Blahrxx69-66-7969LwdfmyelArkansas Methodist Medical Center (15 sources)Sulfonamides (Antibiotic)Propensity to adverse reactions to drug 49-88-9467JlutcdrtGwsNoiikrMary [facility] Medications Current Medications MedicationDrug Class(es)DatesSig (Normalized)Sig (Original)acetaminophen 325 mg / HYDROcodone bitartrate 5 mg oral tablet (1 source)Opioid AgonistStart: 12-07-2024 End: 59-95-7550cyuy 1 tablet by mouth every four hours as needed for pain HYDROcodone-acetaminophen (NORCO) 5-325 mg per tablet Take 1 tablet by mouth every 4 (four) hours as needed for pain. 12/07/2024 02/28/2025 Discontinued (Therapy completed)[id number] 200 actuat albuterol 0.09 mg/actuat metered dose inhaler (20 sources)beta2-Adrenergic AgonistStart: 24-92-9280ktjs 1 puff(s) by inhalation every six hours as neededAlbuterol Sulfate 90 mcg/actuation HFA aerosol inhaler Active 2 PUFF INHALATION Every 6 hours as needed July 19, 2025 12:00am Complies with drug therapyStart: 12-08-2023 End: 11-52-5778tzsg 2.5 mg by inhalation every eight hours as needed for wheezingAlbuterol Sulfate 2.5 mg /3 mL (0.083 %) solution for nebulization Discontinued 2.5 MG INHALATION Q8H as needed for shortness of breath or wheezing 63 7 0 December 08, 2023 12:00am August 100:06amStart: 12-08-2023 End: 47-66-9616qlfz 1 puff(s) by inhalation every four hoursAlbuterol Sulfate 90 mcg/actuation HFA aerosol inhaler Discontinued 2 PUFF INHALATION Q4H 1 14 0 Mar 2023 12:00am August 10, 2024 10:06amStart: 70-05-4495hlst 2 puff(s) by inhalation every six hours as needed for wheezingalbuterol (VENTOLIN HFA) 90 mcg/actuation inhaler Indications: Mild intermittent asthma without comp lication Inhale 2 puffs every 6 (six) hours as needed for wheezing or shortness of breath. 18 g 3 01/20/2023 ActiveStart: 29-73-3390pmpk 3 mL by inhalation every six hours as needed for wheezingalbuterol (PROVENTIL,VENTOLIN) 2.5 mg /3 mL (0.083 %) nebulizer solution Indications: Pneumonia of right lower lobe due to infectious organism , Mild intermittent asthma with acute exacerbation Inhale 3 mL (2.5 mg total) by nebulization every 6 (six) hours as needed for wheezing or shortness of breath. 300 mL 1 09/08/2017 Activeapixaban 5 mg oral tablet (16 sources)Factor Xa InhibitorStart: 02-28-2025 End: 53-99-9229zzgb 1 tablet by mouth twice dailyApixaban (Eliquis) 5 mg tablet Active 5 MG PO Twice daily July 19, 2025 12:00am Complies with drug therapy Start: 01-30-2025 End: 34-92-3791kxef 2 tablets by mouth twice daily, then take 1 tablet by mouth twice dailyapixaban (ELIQUIS) 5 mg (74 tabs) tablets,dose pack tablet Indications: Acute deep vein thrombosis (DVT) of distal vein of right lower extremity (CMS-HCC) Take 2 tablets by mouth twice daily for 7 days, then take 1 tablet twice daily 74 tablet 01/30/2025 02/28/2025 Discontinued (Therapy completed)Start: 58-99-6285vgyg 2 tablets by mouth twice daily, then take 1 tablet by mouth twice dailyapixaban (ELIQUIS) 5 mg (74 tabs) tablets,dose pack tablet Indications: Acute deep vein thrombosis (DVT) of distal vein of right lower extremity (CMS-HCC) Take 2 tablets by mouth twice daily for 7 days, then take 1 tablet twice daily 74 tablet 01/30/2025 ActiveStart: 01-29-2025 End: 08-53-5168oece 2 tablets by mouth in the morning, then take 2 tablets by mouth at bedtimeapixaban (ELIQUIS) 5 mg tablet Take 2 tablets (10 mg total) by mouth in the morning and 2 tablets (10 mg total) before bedtime. 14 tablet 01/29/2025 02/28/2025 Discontinued (Therapy completed)aspirin 325 mg delayed release oral tablet (2 sources)Platelet Aggregation Inhibitor, Nonsteroidal Anti-inflammatory Drug Start: 12-16-2024 End: 18-53-1154lwcu 1 tablet by mouth in the morningaspirin 325 mg EC tablet Take 1 tablet (325 mg total) by mouth in the morning. 12/16/2024 02/28/2025 Discontinued (Therapy completed)celecoxib 100 mg oral capsule (4 sources)Nonsteroidal Anti-inflammatory Drug End: 32-69-2770yuyp 1 capsule by mouth in the morning, then take 1 capsule by mouth at bedtimecelecoxib (CeleBREX) 100 mg capsule Take 1 capsule (100 mg total) by mouth in the morning and 1 capsule (100 mg total) before bedtime. 02/28/2025 Discontinued (Therapy completed)cholecalciferol 0.125 mg oral tablet (10 sources)Vitamin DStart: 77-36-1371tcpp 1 tablet by mouth once in the morning cholecalciferol, vitamin D3, 5,000 units tablet Indications: Vitamin D deficiency Take 1 tablet (5,000 Units total) by mouth in the morning. 30 each 11 12/05/2024 Activeibuprofen 800 mg oral tablet (3 sources)Nonsteroidal Anti-inflammatory DrugStart: 10-20-2023 End: 36-99-4755zolt 1 tablet by mouth every eight hours as needed for pain ibuprofen (MOTRIN) 800 mg tablet Indications: Strain of neck muscle, initial encounter Take 1 tablet (800 mg total) by mouth every 8 (eight) hours as needed for pain. HOLD MELOXICAM 60 tablet 10/20/2023 02/23/2024 Discontinued (Therapy completed)lisinopril 20 mg oral tablet (20 sources)Angiotensin Converting Enzyme InhibitorStart: 41-35-3795tqhm 1 tablet by mouth in the morninglisinopriL (PRINIVIL,ZESTRIL) 20 mg tablet Indications: Essential hypertension Take 1 tablet (20 mgtotal) by mouth in the morning. 90 tablet 3 06/08/2025 ActiveStart: 08-18-2023 End: 47-02-6314obue 1 tablet by mouth in the morninglisinopriL (PRINIVIL,ZESTRIL) 20 mg tablet Indications: Essential hypertension Take 1 tablet (20 mgtotal) by mouth in the morning. 90 tablet 3 06/08/2025 Active meloxicam 15 mg oral tablet (3 sources)Nonsteroidal Anti-inflammatory DrugStart: 07-23-2023 End: 54-55-2774vmii 1 tablet by mouth once daily as needed for painmeloxicam (MOBIC) 15 mg tablet TAKE 1 TABLET BY MOUTH EVERY DAY NEEDED FOR PAIN. DO NOT TAKE WITH OTHER NSAIDS IBUPROFEN OR NAPROXEN 07/23/2023 02/23/2024 Discontinued (Therapy completed)rosuvastatin calcium 10 mg oral tablet (20 sources)HMG-CoA Reductase InhibitorStart: 13-35-9263xghe 1 tablet by mouth in the morningrosuvastatin (CRESTOR) 10 mg tablet Indications: Mixed hyperlipidemia Take 1 tablet (10 mg total) by mouth in the morning. 90 tablet 06/08/2025 ActiveStart: 08-18-2023 End: 08-66-9595ptns 1 tablet by mouth in the morningrosuvastatin (CRESTOR) 10 mg tablet Indications: Mixed hyperlipidemia Take 1 tablet (10 mg total) by mouth in the morning. 90 tablet 06/08/2025 ActivetiZANidine 2 mg oral tablet (4 sources)Central alpha-2 Adrenergic AgonistStart: 10-20-2023 End: 15-13-2890hkTVSbqhxo (ZANAFLEX) 2 mg tablet Indications: Muscle spasms of neck TAKE 1 TABLET(2 MG) BY MOUTH EVERY 6 HOURS NEEDED FOR MUSCLE SPASMS. MAY CAUSE DROWSINESS 450 tablet 11/10/2023 02/23/2024 Discontinued (Therapy completed) Completed/Discontinued Medications MedicationDrug Class(es)DatesSig (Normalized)Sig (Original)methylPREDNISolone 4 mg oral tablet (6 sources)CorticosteroidStart: 12-08-2023 End: 96-10-3357pvcl 1 tablet by mouth onceMethylprednisolone (Medrol (Agnieszka)) 4 mg tablets,dose pack Discontinued 0 PO per package directions 21 0 December 08, 2023 12:00am August 10, 2024 10:06am PO PER PKG DIR for 6 daysStart: 10-20-2023 End: 49-52-9586jiffwiAJJCZBFcnhuj (MEDROL, AGNIESZKA,) 4 mg tablet Indications: Strain of neck muscle, initial encounterfollow package directions 21 tablet 10/20/2023 02/23/2024 Discontinued (Therapy completed)Start: 96-70-6627venucqTUTXXQJyvmoc (MEDROL, AGNIESZKA,) 4 mg tablet Indications: Strain of neck muscle, initial encounter follow package directions 21 tablet 0 10/20/2023 Active Problems Active Problems Problem ClassificationProblemDateDocumented DateEpisodic/ChronicAsthma (20 sources)Mild intermittent asthma; Translations: [Mild intermittent asthma, uncomplicated]Onset: 09-09-2017 Resolved: 486884-77-1044QowbhmtRzyoscria of lipid metabolism (20 sources)Hyperlipidemia; Translations: [Hyperlipidemia, unspecified]Onset: 261406-03-5960HthilahOznlgnenn hypertension (20 sources)Essential hypertension; Translations: [Essential (primary) hypertension]Onset: 911702-18-0191DeilfruTnaqlpoqrxasi and screening for infectious disease (2 sources)Contact with or exposure to other viral diseases; Translations: [Contact with or suspected exposureto severe acute respiratory syndrome coronavirus 2 (SARS-CoV-2)]80-32-3127TfxarvtgQwkgmqlknho deficiencies (2 sources)Vitamin D deficiency; Translations: [Vitamin D deficiency, unspecified]Onset: 761650-00-4015JxqgjgnJyffdgortkbpir (20 sources)Arthritis of right knee; Translations: [Unilateral primary osteoarthritis, right knee]Onset: 504341-05-8468UbzurspJydbz nervous system disorders (18 sources)Myotonic muscular dystrophy; 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]Onset: 434206-75-1455VrsvtiuToyzi nutritional; endocrine; and metabolic disorders (15 sources)Morbid obesity; Translations: [Morbid (severe) obesity due to excess calories]Onset: 484669-00-1005WntgfogZbwfg upper respiratory infections (12 sources)Viral upper respiratory tract infection; Translations: [Acute upper respiratory infection, unspecified]67-81-3415ExsmqdruSwldclose; thrombophlebitis and thromboembolism (11 sources)Acute deep vein thrombosis of lower limb; Translations: [Acute embolism and thrombosis of unspecified deep veins of right distal lower extremity]Onset: 506267-66-5175LdhkfhlbEzryjtbmxgjv (1 source)Cough, unspecified; Translations: [Cough, unspecified]Onset: 59-11-2317Pwuuwhudymlx (1 source)Annual ExamOnset: 67-18-1753Rvzlvmldkctc (1 source)preop clearanceOnset: 83-70-0724Hmfgdodcksku (1 source)same dayOnset: 55-30-7444Nkmysntdmmcn (1 source)right knee osteoarthritisOnset: 12-15-2024 Past or Other Problems Problem ClassificationProblemDateDocumented DateEpisodic/Chronic Administrative/social admission (20 sources)Patient encounter status; Translations: [Dietary counseling and surveillance]Onset: 04-02-2017 Resolved: 706939-95-0120PhhpwlnaCezfysi dysrhythmias (15 sources)Palpitations; Translations: [Palpitations]Onset: 12-21-2018 Resolved: 165541-80-3771YmgdihrkMpqgjnetuz associated with dizziness or vertigo (15 sources)Dizziness; Translations: [Dizziness and giddiness]Onset: 06-21-2020 Resolved: 198055-03-5380SwwbjthqWfsgwvsryoomq symptoms and ill-defined conditions (20 sources)Increased frequency of urination; Translations: [Frequency of micturition]Onset: 01-12-2018 Resolved: 248542-41-0149IvgwqhpnIebhb valve disorders (15 sources)Abnormal heart beat; Translations: [Unspecified abnormalities of heart beat]Onset: 853539-12-7312QbvtyitdJvzzvpvydtkc; infection of eye (except that caused by tuberculosis or sexually transmitteddisease) (15 sources)Acute conjunctivitis of bilateral eyes; Translations: [Unspecified acute conjunctivitis, bilateral]Onset: 04-27-2018 Resolved: 744391-15-8501ZmmwbgztGrvt disorders (15 sources)Mood disordersOnset: 10-20-2023 Resolved: Other connective tissue disease (2 sources)Muscle spasm of cervical muscle of neck; Translations: [Other muscle spasm]52-30-1706LluhytxlBvxzk connective tissue disease (2 sources)Other specified soft tissue disorders; Translations: [Other specified soft tissue disorders]Onset: 62-91-0629MnmjucdwPpnpq diseases of veins and lymphatics (15 sources)Stasis dermatitis; Translations: [Venous insufficiency (chronic) (peripheral)]Onset: 127949-74-4084CrnvtcfsLtcxs ear and sense organ disorders (15 sources)Otitis externa; Translations: [Unspecified otitis externa, unspecified ear]Onset: 11-02-2017 Resolved: 252998-66-5996EgjgczmAvkgu ear and sense organ disorders (15 sources)Impacted cerumen of bilateral ears; Translations: [Impacted cerumen, bilateral]Onset: 11-02-2017 Resolved: 673767-69-8935UbsieqawXbivr lower respiratory disease (18 sources)Cough; Translations: [Cough]Onset: 09-09-2017 Resolved: 519887-22-1872KcvadvncZkmst non-traumatic joint disorders (15 sources)Pain in right knee; Translations: [Pain in joint, lower leg]Onset: 07-20-2017 Resolved: 879843-66-4748UevsumycGlrio non-traumatic joint disorders (1 source)Knee painOnset: 08-36-2620QtbxlwzqVvlku nutritional; endocrine; and metabolic disorders (15 sources)Body mass index 30+ - obesity; Translations: [Body mass index (BMI) 35.0-35.9, adult]Onset: 10-28-2017 Resolved: 780214-50-4280FycpddiKvsvt screening for suspected conditions (not mental disorders or infectious disease) (18 sources)Electrocardiogram abnormal; Translations: [Abnormal electrocardiogram [ECG] [EKG]]Onset: 870439-45-4843EqlememaSoetgunaq (except that caused by tuberculosis or sexually transmitted disease) (15 sources)Infective pneumonia; Translations: [Pneumonia, unspecified organism] Onset: 09-09-2017 Resolved: 581349-35-0751QipxsbpeOvwambti codes; unclassified (15 sources)Family history of prostate cancer; Translations: [Family history of malignant neoplasm of prostate]Onset: 294368-77-9620EpzdnvqzYtuxdoc and strains (1 source)Strain of neck muscle; Translations: [Strain of muscle, fascia and tendon at neck level, initial encounter]13-56-1274ClqowhncTlwezzpazct injury; contusion (15 sources)Abrasion of left cornea; Translations: [Injury of conjunctiva and corneal abrasion without foreign body, left eye, initial encounter]Onset: 04-27-2018 Resolved: 860494-84-3991QobjhlmfAjoxdoqmqwld (15 sources)Onset: 10-20-2023 Resolved: 247271-08-4332Iztrhwpbhzwq (1 source)Preprocedural examination neje26-23-3713Orjnfsiieyre (1 source)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[facility])11-23-2024 Results Test NameValueInterpretationReference RangeFacilityInfluenza virus B Ag [Presence] in Upper respiratory specimen by Rapid immunoassayOrdered By: Monica Nath on 05-88-4978PWQKA Ag IA.rapid Ql (Nph)NegativePromedica Memorial HospitalNo Panel InformationOrdered By: Monica Nath on 64-99-0954Coicceyjk Type A (Rapid)NegativePromedica Memorial HospitalPO SARS CoV-2 Antigen NegativePromedica Memorial HospitalCB WITH AUTO DIFFERENTIALon 01-29-2025 BASOPHILS ABSOLUTE COUNT (10*3/UL) BY AUTOMATED COUNT0.0 10*3/uLNormalProMedica Saint Agnes Medical CenterComment on above:Performed By: #### CBCA #### [facility] ([address] [address] VIRBASOPHILS RELATIVE PERCENT BY AUTOMATED COUNT0.3 %Normal [facility] CenterComment on above:Performed By: #### CBCA #### [facility] ([address] [place] [address] VIRCELLAVISION DIFFERENTIAL TYPEAUTOMATED DIFFERENTIALScotland County Memorial Hospitalal [facility] CenterComment on above:Performed By: #### CBCA #### [facility] ([address] [place] [address] VIREosinophils (Bld) [#/Vol]0.3 10*3/uLNoalLouis Stokes Cleveland VA Medical CenterComment on above:Performed By: #### CBCA #### [facility] ([address] [place] [address] VIREOSINOPHILS RELATIVE PERCENT BY AUTOMATED COUNT3.2 %Normal [facility] CenterComchildren[facility] hospital [facility] [place] on above:Performed By: #### CBCA #### [facility] ([address] [place] [address] VIRErythrocyte distribution width (RBC) [Ratio]13.6 %Normal 11.5-15[facility] CenterComment on above:Performed By: #### CBCA #### [facility] ([address] [place] [address] VIRHematocrit (Bld) [Volume fraction]44.5 %Krjznt03-96 [facility] CenterComment on above:Performed By: #### CBCA #### [facility] ([address] [place] [address] VIRHemoglobin (Bld) [Mass/Vol]15.3 g/jXAbrurw02-93WcsBdbwcuLouis Stokes [facility] Medical CenterComment on above:Performed By: #### CBCA #### [address] [place] [address] VIRLYMPHOCYTES ABSOLUTE COUNT (10*3/UL) BY AUTOMATED COUNT2.1 10*3/uLNoSelect Medical TriHealth Rehabilitation HospitalComment on above:Performed By: #### CBCA #### [facility] ([facility]) [address] [place] [address] [place] [address] VIRLYMPHOCYTES RELATIVE PERCENT BY AUTOMATED COUNT21.2 %Normal [facility] CenterComchildren's hospital of [place] on above:Performed By: #### CBCA #### [facility] ([facility]) [address] [place], [place] [address] [address] VIRMCH (RBC) [Entitic mass]31.0 inAwgxop73-59EncYzlezaVal Verde Regional Medical CenterComment on above:Performed By: #### CBCA #### [facility] ([facility]) [address] [place] [address] [place] [address] VIRMCHC (RBC) [Mass/Vol]34.3 g/wUUginzg74-96WjgHqfgmtVal Verde Regional Medical CenterComment on above:Performed By: #### CBCA #### [facility] ([facility]) [address] [place] [address] [place] [address] VIRMCV (RBC) [Entitic vol]90 eMJiazcp91-855VclLfjgya [facility] HospitalComment on above:Performed By: #### CBCA #### [facility] ([facility]) [address] [place] [address] [place] [address] VIRMONOCYTES ABSOLUTE COUNT (10*3/UL) BY AUTOMATED COUNT1.1 10*3/uLNoSelect Medical TriHealth Rehabilitation HospitalComchildren's hospital [facility] [place] on above:Performed By: #### CBCA #### [facility] ([facility]) [address] [place], [place] [address] [place] [address] VIRMONOCYTES RELATIVE PERCENT BY AUTOMATED COUNT11.1 %Normal [facility] CenterComchildren[facility] hospital [facility] on above:Performed By: #### CBCA #### [facility] ([facility]) [address] [place] [address] [place] [address] VIRNEUTROPHILS ABSOLUTE COUNT BY AUTOMATED COUNT6.5 10*3/uL NormalLouis Stokes Cleveland VA Medical CenterComchildren's hospital of [place] on above:Performed By: #### CBCA #### [facility] ([facility]) [address] [place] [address] [place] [address] VIRNEUTROPHILS RELATIVE PERCENT BY AUTOMATED COUNT64.2 %Normal [facility] CenterComment on above:Performed By: #### CBCA #### [facility] ([facility]) [address] [place] [address] [place] [address] VIRPlatelet mean volume (Bld) [Entitic vol]8.0 fLNormal7-12 [facility] CenterComment on above:Performed By: #### CBCA #### [facility] ([facility]) [address] [place] [address] [place] [address] VIRPlatelets (Bld) [#/Vol]293 10*3/gWQayrct156-822BwbUyfsgg [facility] HospitalComment on above:Performed By: #### CBCA #### [facility] ([facility]) [address] [place] [address] [place] [address] VIRRBC COUNT4.93 X10E12/LNormal4.1-5.7[facility] CenterComment on above:Performed By: #### CBCA #### [facility] ([facility]) [address] [place] [address]. [place] [address] VIRWBC (Bld) [#/Vol]10.1 10*3/uLNormal4-11ProVal Verde Regional Medical CenterComment on above:Performed By: #### CBCA #### [facility] ([facility]) [address] [place] [address] [place] [address] VIRCOMPREHENSIVE METABOLIC PANELon 82-70-4138Uhfopvk [Mass/Vol]3.9 g/dLNormal3.2-5.3PThe Jewish HospitalComment on above: Performed By: #### CMP, CBCA, 08350-3 #### [facility] ([id number]) [address], [address] [place], [place] [address]GAK [Catalytic activity/Vol]67 U/TZqdpsp58-915OhdIaeeuqVal Verde Regional Medical CenterComment on above:Performed By: #### ELBA JIMENEZ, 11585-7 #### [facility] ([id number]) [address], [address] [place] [address]BGX [Catalytic activity/Vol]25 U/LNormal<=40ProVal Verde Regional Medical CenterComment on above:Performed By: #### ELBA JIMENEZ, 10017-5 #### [facility] ([id number]) [address], [address] [place], [place] [address]Zihqi gap [Moles/Vol]5 mmol/LNormal5-15ProVal Verde Regional Medical CenterComment on above:Performed By: #### ELBA JIMENEZ, 76482-3 #### [facility] ([id number]) [address], [address] [place], [place] [address]EMP [Catalytic activity/Vol]23 U/LNormal<=41ProVal Verde Regional Medical CenterComment on above:Performed By: #### ELBA JIMENEZ, 53357-1 #### [facility] ([id number]) [address], [address] [place], [place] [address]Qhcjcuhpp [Mass/Vol]1.5 mg/dLHigh0.3-1.2PThe Jewish HospitalComment on above:Performed By: #### ELBA JIMENEZ, 75814-6 #### [facility] ([id number]) [address], [address] [place], [place] [address]Agiyjwt [Mass/Vol]8.6 mg/dLNormal8.5-10.5PLutheran Medical Center HospitalComment on above:Performed By: #### ELBA JIMENEZ, 51856-8 #### [facility] ([id number]) [address], [address] [place], [place] [address]Tbmcgwqn [Moles/Vol]106 mmol/AYqsfvm15-733CrmUhrqiqVal Verde Regional Medical CenterComment on above:Performed By: #### ELBA JIMENEZ, 89319-9 #### [facility] ([id number]) [address] [address] [address] [place], [place] [address]BD[address] [Moles/Vol]27 mmol/BUlrbha11-52DcjJhfsztThe [facility] Comment on above:Performed By: #### ELBA JIMENEZ, 70607-0 #### [facility] ([id number]) [address], [address] [place], [place] [address]Hsieezzppm [Mass/Vol]0.73 mg/dLNormal0.70-1.20[facility] Medical CenterComment on above:Result Comment: METHOD TRACEABLE TO IDMS STANDARD Performed By: #### ELBA JIMENEZ, 81335-9 #### [facility] ([id number]) [address] [address] [address] [place], [place] [address]FGFC (CKD-EPI) NON-RACE DEPENDENT>^90Normal>=60[facility] CenterComment on above:Result Comment: eGFR not reported due to non-numeric value for Creatinine. Reported eGFR is based on the CKD-EPI 2020 equation that does not use a race coefficient.Performed By: #### ELBA JIMENEZ, 91632-3 #### [facility] ([id number]) [address] [address] [place], [place] [address]Xfydtdv [Mass/Vol]99 mg/wEHjujmf55-72EceDynzjlLouis Stokes [facility] Center Comment on above:Performed By: #### ELBA JIMENEZ, 25763-2 #### [facility] ([id number]) [address] [address] [place], [place] [address]Gkysvmhph [Moles/Vol]3.7 mmol/LNormal3.5-5.0Louis Stokes [facility] Medical CenterComment on above:Performed By: #### BARBARA CBCA, 19404-8 #### [facility] ([id number]) [address], [address] [place], [place] [address]Fifhqzg [Mass/Vol]7.1 g/dLNormal6.0-8.0ProVal Verde Regional Medical CenterComment on above:Performed By: #### BARBARA, CBCA, 66574-2 #### [facility] ([id number]) [address], [facility] [address] [place], [place] [address]Ibevoc [Moles/Vol]138 mmol/XVfrwfk426-017AmwEcikdh Fremont HospitalComment on above:Performed By: #### BARBARA, CBCA, 91084-3 #### [facility] ([id number]) [address], [address] [address]Ljei nitrogen [Mass/Vol]11 mg/dLNormal5-23ProVal Verde Regional Medical CenterComment on above:Performed By: #### BARBARA, CBCA, 32322-5 #### [facility] ([id number]) [address] [address]N-OOOCXmj 01-29-2025D NBGXN420 ug/mLHigh1-255ProVal Verde Regional Medical CenterComment on above:Result Comment: Results >255 ng/mL DDU: Results may be indicative of the presence of VTE. The use of the Wells score and further diagnostic tests should be considered. Elevated D-Dimer levels can be associated with DIC, neoplasm, , trauma and liver disease. Elevated levels of rheumatoidfactor may lead to an overestimation of the D-Dimer level.Performed By: #### BARBARA, CBCA, 48945-8 #### [facility] ([id number]) [address] [address]TG KNEE RT 3 VWSon 49-27-7873UD KNEE RT 3 VWSXR KNEE RT 3 VWS STUDY: Radiographs of the right knee TECHNIQUE: 4 views of the right knee COMPARISON: Right knee radiographs dated 12/15/2024 FINDINGS/IMPRESSION: 1. No acute fracture or dislocation. 2. Postsurgical changes status post right knee total arthroplasty without evidence of lucency to suggest hardware loosening or complication. 3. Small joint effusion. 4. Fabella. Finalized by Laurita Ward MD on 01/29/2025 2:20 PMNormalLouis Stokes Cleveland VA Medical CenterBASIC METABOLIC PANLon 81-01-0674Orrcv gap [Moles/Vol]6 mmol/LNormal5-15 [facility] Medical CenterComment on above:Performed By: #### JAIRO, HH #### [facility] ([id number]) [address] [place] [address], [place] [address]Pisyadd [Mass/Vol]8.8 mg/dLNormal8.5-10.5PThe Jewish HospitalComment on above:Performed By: #### JAIRO, HH #### [facility] ([id number]) [address] [place] [address], [place] [address]Xggklkcy [Moles/Vol]104 mmol/ASowndz29-503DolJsdhkhLouis Stokes Cleveland VA Medical CenterComment on above:Performed By: #### JAIRO, HH #### [facility] ([id number]) [address] [place] [address], [place] [address]WE3 [Moles/Vol]30 mmol/KVwhjmi03-14QerWxhltjThe Jewish Hospital Comment on above:Performed By: #### JAIRO, HH #### [facility] ([id number]) [address] [place] [address], [place] [address]Fbddrvdmmr [Mass/Vol]1.02 mg/dLNormal0.70-1.20Louis Stokes Cleveland [facility] Medical CenterComment on above:Result Comment: METHOD TRACEABLE TO IDMS STANDARD Performed By: #### JAIRO, HH #### [facility] ([id number]) [address] [place] [address], [place] [address]rQLY (CKD-EPI) NON-RACE DEPENDENT>90Normal>59ProVal Verde Regional Medical CenterComment on above:Result Comment: Reported eGFR is based on the CKD-EPI 2020 equation that does not use a race coefficient.Performed By: #### JAIRO, HH #### [facility] ([id number]) [address] [place] [address], [place] [address]Nfiebbk [Mass/Vol]114 mg/iQQhef96-78MpqAwlmwgLouis Stokes Cleveland [facility] Center Comment on above:Performed By: #### JAIRO, HH #### [facility] ([id number]) [address] [place] [address], [place] [address]Gjojtzfjy [Moles/Vol]4.7 mmol/LNormal3.5-5.0ProVal Verde Regional Medical CenterComment on above:Performed By: #### JAIRO, HH #### [facility] ([id number]) [address] [place] [address], [place] [address]Pdwljz [Moles/Vol]140 mmol/MOdhfck097-765LwxHpkore Fremont HospitalComment on above:Performed By: #### JAIRO, HH #### [facility] ([id number]) [address] [place] [address], [place] [address]Hafc nitrogen [Mass/Vol]14 mg/dLNormal5-23ProVal Verde Regional Medical CenterComment on above:Performed By: #### JAIRO, HH #### [facility] ([id number]) [address] [place] [address]SVIic 89-04-1302Vwpwdmiedc (Bld) [Volume fraction]45.7 %Normal 39-49ProVal Verde Regional Medical CenterComment on above:Performed By: #### JAIRO, HH #### [facility] ([id number]) [address] [place] [address]Ntyhafgoba (Bld) [Mass/Vol]15.6 g/cWZtgjdp12.0-17.0Louis Stokes [facility] Medical CenterComment on above:Performed By: #### JAIRO, HH #### [facility] ([id number]) [address] [place] [address], [place] [address]LO KNEE RT 1 OR 2 VWSon 70-46-1750HG KNEE RT 1 OR 2 VWSXR KNEE RT 1 OR 2 VWS XR KNEE RT 1 OR 2 VWS HISTORY: Knee replacement. COMPARISON: None. IMPRESSION: 1. Knee prosthesis, joint effusion, gas, swelling, no complication. Finalized by Stiven Bai MD on 12/15/2024 10:27 AMNormalLouis Stokes Cleveland VA Medical CenterECG 12 leadon 42-11-9532NLWAFNPBAAKSPVPwbVnupbx Health SystemCBC AND AUTO DIFFon 91-21-8157IPLDJOPY BASOPHIL0.0 X10E9/LNormal0.0-0.2PThe Jewish HospitalComment on above:Performed By: #### CMP, CBCA, 48316-6 #### [facility] ([id number]) [address], [address] [place], [place] [address]FISBIZSA NEUTROPHIL7.0 X10E9/LHigh1.5-6.6Louis Stokes [facility] VA Medical CenterComment on above:Performed By: #### CMP, CBCA, 81225-5 #### [facility] ([id number]) [address], [address] [place], [place] [address]Bvrdafzzt/100 WBC (Bld)0.5 %[facility] Comment on above:Performed By: #### CMP, CBCA, 57244-9 #### [facility] ([id number]) [address], [address] [place], [place] [address]Bxkrnyadeeg (Bld) [#/Vol]0.4 10*3/uLNormal0.0-0.4Louis [facility] Medical CenterComment on above:Performed By: #### CMP, CBCA, 27760-5 #### [facility] ([id number]) [address], [address] [place], [place] [address]Sxqhtcjazxa/100 WBC (Bld)3.6 %[facility] Comment on above:Performed By: #### CMP, CBCA, 26200-0 #### [facility] ([id number]) [address], [address] [place], [place] [address]Eqrcsyvyosx distribution width (RBC) [Ratio]14.2 %Normal 11.5-15.0Louis Stokes [facility] Medical CenterComment on above:Performed By: #### CMP, CBCA, 17925-5 #### [facility] ([id number]) [address] [address] [place], [place] [address]Tbhqivqnuz (Bld) [Volume fraction]47.3 %Xhxvrr68-52JsvAuoyqcVal Verde Regional Medical CenterComment on above:Performed By: #### CMP, CBCA, 37356-5 #### [facility] ([id number]) [address] [address] [place], [place] [address]Xdpcaohqis (Bld) [Mass/Vol]16.1 g/jFIfmdtd29.0-17.0ProVal Verde Regional Medical CenterComment on above:Performed By: #### CMP, CBCA, 05088-1 #### [facility] ([id number]) [address] [address] [place], [place] [address]Mbqaijmgmqi (Bld) [#/Vol]1.8 10*3/uLNormal1.0-3.5PThe Jewish HospitalComment on above:Performed By: #### CMP, CBCA, 72008-1 #### [facility] ([id number]) [address] [address] [place], [place] [address]Nwxzrnzeaws/100 WBC (Bld)18.2 %NormalProVal Verde Regional Medical Center Comment on above:Performed By: #### CMP, CBCA, 10127-3 #### [facility] ([id number]) [address] [address] [place], [place] [address]GJQ (RBC) [Entitic mass]31.1 xbIczszn30-46RqoIervqmVal Verde Regional Medical CenterComment on above:Performed By: #### CMP, CBCA, 36238-7 #### [facility] ([id number]) [address], [address] [place], [place] [address]LKQE (RBC) [Mass/Vol]34.1 g/zQNwbohl23-34CvoDfpjzqLouis Stokes Cleveland VA Medical CenterComment on above:Performed By: #### CMP, CBCA, 02589-2 #### [facility] ([id number]) [address], [address] [place], [place] [address]VDI (RBC) [Entitic vol]91 bZYhvpen53-619KptEhoxfy [facility]remont HospitalComment on above:Performed By: #### CMP, CBCA, 39891-5 #### [facility] ([id number]) [address], [address] [place], [place] [address]Fefrwbskb (Bld) [#/Vol]0.7 10*3/uLNormal0-0.9Louis Stokes [facility] Medical CenterComment on above:Performed By: #### CMP, CBCA, 60328-9 #### [facility] ([id number]) [address], [address] [place], [place] [address]Qazbivbxi/100 WBC (Bld)7.1 %NormalLouis Stokes Cleveland VA Medical Center Comment on above:Performed By: #### CMP, CBCA, 38461-5 #### [facility] ([id number]) [address], [address] [place], [place] [address]Ssgxxlurwtc/100 WBC (Bld)70.6 %[facility] Comment on above:Performed By: #### CMP, CBCA, 97504-2 #### [facility] ([id number]) [address], [address] [place], [place] [address]Hwhbhlip mean volume (Bld) [Entitic vol]9.0 fLNormal7-12 ProMRancho Springs Medical CenterComment on above:Performed By: #### CMP, CBCA, 48676-0 #### [facility] ([id number]) [address], [address] [place], [place] [address]Wslcouuzj (Bld) [#/Vol]225 10*3/sMLdxzcy755-228KgpVkihtyLouis Stokes Cleveland VA Medical CenterComment on above:Performed By: #### CMP, CBCA, 44743-4 #### [facility] ([id number]) [address], [address] [place], [place] [address]UGZ COUNT5.19 X10E12/LNormal4.10-5.70[facility] Comment on above:Performed By: #### CMP, CBCA, 87890-4 #### [facility] ([id number]) [address], [address] [place], [place] [address]ZRZ (Bld) [#/Vol]9.8 10*3/uLNormal4.0-11.0Louis Stokes [facility] Medical CenterComment on above:Performed By: #### CMP, CBCA, 47660-6 #### [facility] ([id number]) [address], [address] [place], [place] [address]RMU auto differentialon 62-80-6184Acpxrzaxt (Bld) [#/Vol]0 10*3/[facility] LakeView HospitalBasophils/100 WBC (Bld)0.5 %Providence HospitalEosinophils (Bld) [#/Vol]0.4 10*3/[facility] LakeView HospitalEosinophils/100 WBC (Bld)3.6 %Providence HospitalErythrocyte distribution width (RBC) [Ratio]14.2 %11.5 - 15.0 %ProMedicMercy Hospital SystemHematocrit (Bld) [Volume fraction]47.3 %39 - 49 %[facility]ja Medical CenteredicProMedica Toledo HospitalHemoglobin (Bld) [Mass/Vol]16.1 g/dL13.0 - 17.0 g/dLProvidence HospitalInterpretation and review of laboratory resultsAbnormTriHealth Bethesda North HospitalLymphocytes (Bld) [#/Vol]1.8 10*3/[facility] LakeView HospitalLymphocytes/100 WBC (Bld)18.2 %Memorial HospitalH (RBC) [Entitic mass]31.1 pg27 - 34 pgPGalion HospitalMCHC (RBC) [Mass/Vol]34.1 g/dL32 - 36 g/dLProvidence HospitalMCV (RBC) [Entitic vol]91 fL80 - 100 [facility] NorthlandMonocytes (Bld) [#/Vol]0.7 10*3/uLProvidence HospitalMonocytes/100 WBC (Bld)7.1 %[facility]idence HospitalNeutrophils (Bld) [#/Vol]7 10*3/[facility] City HospitalNeutrophils/100 WBC (Bld)70.6 % Providence HospitalPlatelet mean volume (Bld) [Entitic vol]9 fL7 - 12 fL Providence HospitalPlatelets (Bld) [#/Vol]225 10*3/[facility] RBC (Bld) [#/Vol]5.19 10*6/[facility] LakeView HospitalWBC corrected for nucl RBC Auto (Bld) [#/Vol]9.8Kindred HealthcareCOMPREHENSIVE METABOLIC PANELon 72-76-6968Rxgpbah [Mass/Vol]4.1 g/dLNormal3.2-5.3PThe Jewish HospitalComment on above:Performed By: #### ELBA JIMENEZ, 24894-3 #### [facility] ([id number]) [address], [address] [place], [place] [address]ION [Catalytic activity/Vol]70 U/MExgxta23-734CnbXdglwlLouis Stokes Cleveland VA Medical CenterComment on above:Performed By: #### ELBA JIMENEZ, 48138-4 #### [facility] ([id number]) [address] [facility], [address] [place], [place] [address]DHK [Catalytic activity/Vol]29 U/LNormal0-40Louis Stokes [facility] Medical CenterComment on above:Performed By: #### BARBARA CBCA, 49491-8 #### [facility] ([id number]) [address], [address] [place] [address]Jvwrq gap [Moles/Vol]9 mmol/LNormal5-15ProVal Verde Regional Medical CenterComment on above:Performed By: #### BARBARA, CBCA, 91413-4 #### [facility] ([id number]) [address], [address] [place], [place] [address]SLC [Catalytic activity/Vol]20 U/LNormal0-41ProVal Verde Regional Medical CenterComment on above:Performed By: #### BARBARA, CBCA, 93435-9 #### [facility] ([id number]) [address], [address] [place], [place] [address]Jkvmdovju [Mass/Vol]1.6 mg/dLHigh0.3-1.2PThe Jewish HospitalComment on above:Performed By: #### BARBARA, CBCA, 14140-4 #### [facility] ([id number]) [address], [address] [place], [place] [address]Qjsizlv [Mass/Vol]8.8 mg/dLNormal8.5-10.5PThe Jewish HospitalComment on above:Performed By: #### BARBARA, CBCA, 30001-2 #### [facility] ([id number]) [address], [address] [place], [place] [address]Bfxwboeg [Moles/Vol]104 mmol/HOqoesp72-709PuhMwdkxiVal Verde Regional Medical CenterComment on above:Performed By: #### BARBARA, CBCA, 55984-6 #### [facility] ([id number]) [address], [address] [place], [place] [address]IE5 [Moles/Vol]29 mmol/AIazcqk61-48AdyOronubMiami Valley Hospital on above:Performed By: #### BARBARA, CBCA, 15885-7 #### [facility] ([id number]) [address], [address] [place], [place] [address]Zyoszdqtwa [Mass/Vol]0.86 mg/dLNormal0.60-1.30ProVal Verde Regional Medical CenterComment on above:Result Comment: METHOD TRACEABLE TO IDMS STANDARD Performed By: #### ELBA JIMENEZ, 06374-3 #### [facility] ([id number]) [address], [address] [place], [place] [address]jWQS (CKD-EPI) NON-RACE DEPENDENT>90Normal>59ProVal Verde Regional Medical CenterComment on above:Result Comment: Reported eGFR is based on the CKD-EPI 2020 equation that does not use a race coefficient.Performed By: #### ELBA JIMENEZ, 50662-4 #### [facility] ([id number]) [address] [address] [place], [place] [address]Zijasox [Mass/Vol]165 mg/kXVidy48-54NyoJxqonnVal Verde Regional Medical Center Comment on above:Performed By: #### ELBA JIMENEZ, 44220-7 #### [facility] ([id number]) [address] [address] [place], [place] [address]Spgktwmpn [Moles/Vol]3.8 mmol/LNormal3.5-5.0ProVal Verde Regional Medical CenterComment on above:Performed By: #### ELBA JIMENEZ, 47188-7 #### [facility] ([id number]) [address] [address] [place], [place] [address]Jjamwqy [Mass/Vol]6.6 g/dLNormal6.0-8.0ProVal Verde Regional Medical CenterComment on above:Performed By: #### ELBA JIMENEZ, 04087-4 #### [facility] ([id number]) [address] [address] [place], [place] [address]Gnnokx [Moles/Vol]142 mmol/SFfqygd781-582GquDdqvyh [facility]remont HospitalComment on above:Performed By: #### ELBA JIMENEZ, 16852-1 #### [facility] ([id number]) [address], [address] [place], [place] [address]Rqoj nitrogen [Mass/Vol]13 mg/dLNormal5-23Louis Stokes [facility] Medical CenterComment on above:Performed By: #### CMP, CBCA, 77391-0 #### [facility] ([id number]) [address], [address] [place], [place] [address]Yozrgxmsmjpyh metabolic panelon 07-83-8291Jmngtpj [Mass/Vol]4.1 g/dL3.2 - 5.3 g/dLWhite Hospital SystemALP [Catalytic activity/Vol]70 U/L39 - 130 U/[facility] Health SystemALT No additional P-5'-P [Catalytic activity/Vol] 29 U/L0 - 40 U/[facility] Health SystemAnion gap [Moles/Vol]9 mmol/L5 - 15 mmol/[facility] Health SystemAST [Catalytic activity/Vol]20 U/L0 - 41 U/L Providence HospitalBilirubin [Mass/Vol]1.6 mg/dLHigh0.3 - 1.2 mg/dLWhite Hospital SystemCalcium [Mass/Vol]8.8 mg/dL8.5 - 10.5 mg/dLWhite Hospital System Chloride [Moles/Vol]104 mmol/L98 - 109 mmol/[facility] Health SystemCO2 [Moles/Vol]29 mmol/L22 - 32 mmol/[facility] SystemCreatinine [Mass/Vol] 0.86 mg/dL0.60 - 1.30 mg/dLProvidence HospitalComment on above:METHOD TRACEABLE TO IDHI STANDARDeGFR (CKD-EPI)non-race dependent- Stafford HospitalComment on above: Reported eGFR is based on the CKD-EPI 2020 equation that does not use a race coefficient. Glucose [Mass/Vol]165 mg/fPCdrz31 - 99 mg/dLProvidence Hospital Interpretation and review of laboratory resultsAbnormalProvidence Hospital Potassium [Moles/Vol]3.8 mmol/L3.5 - 5.0 mmol/[facility] SystemProtein [Mass/Vol]6.6 g/dL6.0 - 8.0 g/dLProMercy Health Perrysburg Hospital SystemSodium [Moles/Vol]142 mmol/L134 - 146 mmol/LProMedica Health SystemUrea nitrogen [Mass/Vol]13 mg/dL5 - 23 mg/dLProPennsylvania HospitalMRSA PCR NASALon 13-84-5504NSEK DNA AVI+probe Ql (Unsp spec)NegativeNormalNEGLouis Stokes Cleveland VA Medical CenterComment on above:Performed By: #### 48913-3 #### [facility] ([id number]) [address] [place] [address], [address] [place], [place] [address]Qtitmgq D 25 hydroxyon 41-29-7939Nyhmsot D+Metabolites [Mass/Vol]12.3 ng/mLLow30 - 100 ng/mLProvidence HospitalComment on above: Vitamin D status 25 [place] Vitamin D Deficiency <20 ng/mL Insufficiency 20-29 ng/mL Sufficiency 30-100 ng/mL Toxicity >100 ng/mL NOTE: A pediatric reference range has not been established by the armhole presser of this kit. The [place] [employer] recommends a Vitamin D level of = or >20ng/mL in infants and children. Vitamin D+Metabolites [Mass/Vol]on 77-02-7410Vzimrcgmcjjlym and review of laboratory resultsAbnormalProPennsylvania HospitalVITAMIN D 25 HYD TOT12.3 ng/gPHys43-633DzvQraywgLouis Stokes Cleveland VA Medical CenterComment on above:Result Comment: Vitamin D status 25 [place] Vitamin D Deficiency <20 ng/mL Insufficiency 20-29 ng/mL Sufficiency 30-100 ng/mL Toxicity >100 ng/mL NOTE: A pediatric reference range has not been established by the armhole presser of this kit. The [place] [employer] recommends a Vitamin D level of = or >20ng/mL in infants and children.Performed By: #### CMP, CBCA, 73471-5 #### [facility] ([id number]) [address], [address] [place], [place] [address]QG CHEST 2 VWSon 57-64-7939II CHEST 2 VWSXR CHEST 2 VWS Indication: Preop patient through asthma. TECHNIQUE: Frontal and lateral views of the chest are obtained and compared to prior exam dated 01/20/2023. FINDINGS: Heart and mediastinum are within normal limits. Focal consolidation, pleural effusion, orpneumothorax are not seen. No significant hyperaeration noted. Impression: 1. No acute pulmonary process seen. Finalized by Jayla Chen MD on 11/22/2024 1:06 PMNTrinity Health SystemXR Chest PA and Lateralon 20-43-4075Huginexivf: Preop patient through asthma. TECHNIQUE: Frontal and lateral views of the chest are obtained and compared to prior exam dated 01/20/2023. FINDINGS: Heart and mediastinum are within normal limits. Focal consolidation, pleural effusion, orpneumothorax are not seen. No significant hyperaeration noted. Impression: 1. No acute pulmonary process seen. Finalized by Jayla Chen MD on 11/22/2024 1:06 PMSECTRAPACSAchinger, Jayla Wells MD - 11/22/2024 Indication: Preop patient through asthma. TECHNIQUE: Frontal and lateral views of the chest are obtained and compared to prior exam dated 01/20/2023. FINDINGS: Heart and mediastinum are within normal limits. Focal consolidation, pleural effusion, orpneumothorax are not seen. No significant hyperaeration noted. Impression: 1. No acute pulmonary process seen. Finalized by Jayla Chen MD on 11/22/2024 1:06 PM [facility] HospitalMusic United SystemRadiology Study observation (narrative)[facility]ja Medical CenterWideAngle Metrics Beaumont HospitalXR Chest PA and LateralOrdered By: Jayla Chen on 86-41-4512MhjPcujgh [facility] Work Phone: cbc AND AUTO DIFFon 44-30-1786PPVYWGZT BASOPHIL0.1 X10E9/LNormal0.0-0.2ProMedica Lebanon Junction HospitalComment on above:Performed By: #### BARBARA ARREOLA, 24420-3, HA1C #### [facility] ([id number]) [address], [address] [place], [place] [address]DUHHUIYM NEUTROPHIL4.5 X10E9/LNormal1.5-6.6ProWilson Health HospitalComment on above:Performed By: #### CBCJavy, CMP, 90726-6, HA1C #### [facility] ([id number]) [address], [address] [place], [place] [address]Ydlrmvjkw/100 WBC (Bld)0.8 %NormalUniversity Hospitals Cleveland Medical Center Comment on above:Performed By: #### CBCJavy CMP, 64887-4, HA1C #### [facility] ([id number]) [address], [address] [place], [place] [address]Fobnfgsjrfo (Bld) [#/Vol]0.3 10*3/uLNormal0.0-0.4ProPremier Health Miami Valley HospitalComment on above:Performed By: #### CBCJavy, CMP, 65020-1, HA1C #### [facility] ([id number]) [address], [address] [place], [place] [address]Pgfuvuqnvea/100 WBC (Bld)3.5 %NormalUniversity Hospitals Cleveland Medical Center Comment on above:Performed By: #### CBCA, CMP, 24377-3, HA1C #### [facility] ([id number]) [address] [place], [place] [address]Kjntjrooidj distribution width (RBC) [Ratio]13.9 %Normal 11.5-15.0ProPremier Health Miami Valley HospitalComment on above:Performed By: #### CBCA, CMP, 27199-8, HA1C #### [facility] ([id number]) [address], [address] [place], [place] [address]Hxyifyewth (Bld) [Volume fraction]49.1 %Kdzo66-22FibKrgede Toledo HospitalComment on above:Performed By: #### CBCBARBARA Palafox, 94093-2, HA1C #### [facility] ([id number]) [address], [address] [place], [place] [address]Kdccegvyfh (Bld) [Mass/Vol]16.6 g/bVMzlndb44.0-17.0ProAultman Hospitalca [place] HospitalComment on above:Performed By: #### CBCBARBARA Palafox, 16869-0, HA1C #### [facility] ([id number]) [address], [address] [place], [place] [address]Dquvnokxyum (Bld) [#/Vol]2.5 10*3/uLNormal1.0-3.5[facility] [place] [facility] HospitalComment on above:Performed By: #### CBCBARBARA Palafox, 70310-0, HA1C #### [facility] ([id number]) [address], [address] [place], [place] [address]Zbfxkgxbwvf/100 WBC (Bld)31.2 %NormalProWilson Health Hospital Comment on above:Performed By: #### CBCBARBARA Palafox, 35854-1, HA1C #### [facility] ([id number]) [address], [address] [place], [place] [address]ZGI (RBC) [Entitic mass]31.0 tbDhbinl75-00PznWhgnza [place] HospitalComment on above:Performed By: #### CBCJavy CMP, 66946-8, HA1C #### [facility] ([id number]) [address], [address] [place], [place] [address]TOBB (RBC) [Mass/Vol]33.9 g/aPNvisup42-59RnwEttzcf [place] HospitalComment on above:Performed By: #### CBCA, CMP, 04114-0, HA1C #### [facility] ([id number]) [address], [address] [place], [place] [address]MPJ (RBC) [Entitic vol]92 cNLucqwo73-015KefCtqtus [place] HospitalComment on above:Performed By: #### CBCJavy CMP, 76475-7, HA1C #### [facility] ([id number]) [address], [address] [place], [place] [address]Oquwagskh (Bld) [#/Vol]0.6 10*3/uLNormal0-0.9[facility] [place] [facility] HospitalComment on above:Performed By: #### BARBARA ARREOLA, 23679-3, HA1C #### [facility] ([id number]) [address], [address] [place], [place] [address]Gvqcxmjue/100 WBC (Bld)8.0 %NormalUniversity Hospitals Cleveland Medical Center Comment on above:Performed By: #### CBCBARBARA Palafox, 29890-3, HA1C #### [facility] ([id number]) [address], [address] [place], [place] [address]Yeyafdwjucw/100 WBC (Bld)56.5 %[facility] Comment on above:Performed By: #### CBCBARBARA Palafox, 85511-2, HA1C #### [facility] ([id number]) [address], [address] [place], [place] [address]Lderutap mean volume (Bld) [Entitic vol]9.3 fLNormal7-12 [facility] HospitalComment on above:Performed By: #### CBCJavy, CMP, 57758-9, HA1C #### [facility] ([id number]) [address], [address] [place], [place] [address]Oysbynxsr (Bld) [#/Vol]241 10*3/pDDblxjs703-693OukTqktrs [place] HospitalComment on above:Performed By: #### CBCA, CMP, 17099-1, HA1C #### [facility] ([id number]) [address], [address] [place], [place] [address]YQU COUNT5.37 X10E12/LNormal4.10-5.70ProA[facility] Hospitalca [facility] Comment on above:Performed By: #### BARBARA ARREOLA, 49056-9, HA1C #### [facility] ([id number]) [address], [address] [place], [place] [address]JZT (Bld) [#/Vol]8.1 10*3/uLNormal4.0-11.0[facility] HospitalComment on above:Performed By: #### BARBARA ARREOLA, 80424-0, HA1C #### [facility] ([id number]) [address], [address] [place], [place] [address]DYGDMWYEWAXMA METABOLIC PANELon 84-10-8043Ncsyoeg [Mass/Vol]4.0 g/dLNormal3.2-5.3[facility] HospitalComment on above:Performed By: #### BARBARA ARREOLA, 90727-0, HA1C #### [facility] ([id number]) [address], [address] [place], [place] [address]MZV [Catalytic activity/Vol]67 U/DWvmjyz80-624DkbYwpkfn [place] HospitalComment on above:Performed By: #### BARBARA ARREOLA, 75747-0, HA1C #### [facility] ([id number]) [address], [address] [place], [place] [address]FIY [Catalytic activity/Vol]27 U/LNormal0-40[facility] [place] HospitalComment on above:Performed By: #### BARBARA ARREOLA, 12034-7, HA1C #### [facility] ([id number]) [address], [address] [place], [place] [address]Ypfrm gap [Moles/Vol]9 mmol/LNormal5-15[facility] Comment on above:Performed By: #### BARBARA ARREOLA, 29841-0, HA1C #### [facility] ([id number]) [address], [address] [place], [place] [address]GWH [Catalytic activity/Vol]20 U/LNormal0-41ProPremier Health Miami Valley HospitalComment on above:Performed By: #### BARBARA ARREOLA, 09100-3, HA1C #### [facility] ([id number]) [address], [address] [place], [place] [address]Tsgkkuccr [Mass/Vol]0.8 mg/dLNormal0.3-1.2ProMedOhioHealth Doctors Hospital HospitalComment on above:Performed By: #### BARBARA ARREOLA, 70807-2, HA1C #### [facility] ([id number]) [address], [address] [place], [place] [address]Pmrqglo [Mass/Vol]9.1 mg/dLNormal8.5-10.5POhio State Harding HospitalComment on above:Performed By: #### BARBARA ARREOLA, 55631-5, HA1C #### [facility] ([id number]) [address], [address] [place], [place] [address]Zzvkuqub [Moles/Vol]107 mmol/AQyjhmr06-894TbpKcmjsn [place] HospitalComment on above:Performed By: #### BARBARA ARREOLA, 53010-9, HA1C #### [facility] ([id number]) [address], [address] [place], [place] [address]YU4 [Moles/Vol]28 mmol/SPuvpgk47-53KkkXllbckOhio State Harding Hospital Comment on above:Performed By: #### BARBARA ARREOLA, 07726-2, HA1C #### [facility] ([id number]) [address], [address] [place], [place] [address]Tkeirgcpht [Mass/Vol]0.91 mg/dLNormal0.60-1.30ProPremier Health Miami Valley HospitalComment on above:Result Comment: METHOD TRACEABLE TO IDMS STANDARD Performed By: #### BARBARA ARREOLA, 26817-8, HA1C #### [facility] ([id number]) [address], [address] [place], [place] [address]qXCE (CKD-EPI) NON-RACE DEPENDENT>90Normal>59ProWilson Health HospitalComment on above:Result Comment: Reported eGFR is based on the CKD-EPI 2020 equation that does not use a race coefficient.Performed By: #### BARBARA ARREOLA, 54827-2, HA1C #### [facility] ([id number]) [address], [address] [place], [place] [address]Pyfvade [Mass/Vol]106 mg/vVCmgc05-05HijShkgzsUniversity Hospitals Cleveland Medical Center Comment on above:Performed By: #### BARBARA ARREOLA, 20722-1, HA1C #### [facility] ([id number]) [address], [address] [place], [place] [address]Xkvrurwej [Moles/Vol]4.1 mmol/LNormal3.5-5.0ProPremier Health Miami Valley HospitalComment on above:Performed By: #### BARBARA ARREOLA, 73732-1, HA1C #### [facility] ([id number]) [address], [address] [place], [place] [address]Rysrnst [Mass/Vol]6.6 g/dLNormal6.0-8.0[facility] Comment on above:Performed By: #### BARBARA ARREOLA, 94562-7, HA1C #### [facility] ([id number]) [address], [address] [place], [place] [address]Gohitj [Moles/Vol]144 mmol/ZWfuydx684-935UswUgbhpm [place] HospitalComment on above:Performed By: #### BARBARA ARREOLA, 12083-7, HA1C #### [facility] ([id number]) [address], [address] [place], [place] [address]Edey nitrogen [Mass/Vol]14 mg/dLNormal5-23ProWilson Health HospitalComment on above:Performed By: #### BARBARA ARREOLA, 33355-4, LEIDY #### [facility] ([id number]) [address], [address] [place], [place] [address]OST A1C (GLYCO-HGB)on 71-93-6518Sqiyhim [Mass/Vol]114 mg/dL NormalProWilson Health HospitalComment on above:Performed By: #### BARBARA ARREOLA, 04178-9, LEIDY #### [facility] ([id number]) [address], [address] [place], [place] [address]QtD2v (Bld) [Mass fraction]5.6 %Normal4.4-5.6ProWilson Health HospitalComment on above:Result Comment: NOTE ADA Guidelines Result HgbA1c Normal : less than 5.7 % Prediabetes : 5.7 % to 6.4 % Diabetes : > 6.4 % Use with caution in patients with abnormal hemoglobin variants as the half-life of red blood cells and in vivo glycation rates are affected.Performed By: #### BARBARA ARREOLA, 74448-8, LEIDY #### [facility] ([id number]) [address], [address] [place], [place] [address]Pbvva 1996 panelon 48-80-0097Zijisayxaee [Mass/Vol]149 mg/dLLow 150-200ProWilson Health HospitalComment on above:Performed By: #### BARBARA ARREOLA, 54683-3, LEIDY #### [facility] ([id number]) [address], [address] [place], [place] [address]Eidichjzryx in HDL [Mass/Vol]45 mg/dLNormal>39ProWilson Health HospitalComment on above:Result Comment: HDL <40 mg/dL - High Risk HDL > or = 40mg/dL- Desirable HDL >60 mg/dL - Negative Risk Performed By: ###Tanya ARREOLA CMP, 07820-9, HA1C #### [facility] ([id number]) [address], [address] [place], [place] [address]Chtzivhlexi in LDL [Mass/Vol]78 mg/dLNormal<130ProMediShelby Memorial Hospital HospitalComment on above:Result Comment: LDL <100 mg/dL - Desirable LDL >160 mg/dL - High Risk Performed By: ###Tanya ARREOLA CMP, 63460-8, HA1C #### [facility] ([id number]) [address], [address] [place], [place] [address]Bfdtwyvzsbf in VLDL [Mass/Vol]26 mg/dLNormal0-30ProWilson Health HospitalComment on above:Performed By: ###Tanya ARREOLA CMP, 37858-3, HA1C #### [facility] ([id number]) [address], [address] [place], [place] [address]GTZPJWGYLPO:HDL3.5Jmaljw9.0-5.0ProWilson Health HospitalComment on above:Performed By: ###Tanya ARREOLA CMP, 94770-1, HA1C #### [facility] ([id number]) [address], [address] [place], [place] [address]Fwqcuxlkgwml [Mass/Vol]128 mg/tARvqjfo47-070EdmCwqrur [place] HospitalComment on above:Performed By: ###Tanya ARREOLA CMP, 83049-0, HA1C #### [facility] ([id number]) [address] [facility], [address] [place], [place] [address]JhuOrdq Not Detectedon 08-07-4164LziItis Not DetectedNot detectedNormalNot DetecteThe [facility] Lincoln Physician GroupComment on above:Result Comment: This is a duplicate RP2.1 COVID (PCR) result to be used for statistical tracking purpose only. PERFORMED BY: [facility] [address] [place] [address] PATHOLOGIST BUSINESS MANAGER KALYN RESENDEZ M.D.Performed By: #### RESP PANEL UPP., BIOFIRECOVNOTDE #### [facility] [address] [place] [address] USACOVID-19 Detected/Not DetectedOrdered By: Shauna Man on 46-19-3405CQWM-CoV-2 (COVID-19) RNA AVI+non-probe Ql (Nph)Not detectedNot DetectKeenan Private HospitalComment on above:This is a duplicate RP2.1 COVID (PCR) result to be used for statistical tracking purpose only.No Panel InformationOrdered By: Shauna Man on 04-19-3875Fkjfi Strep (POC)[facility] HospitalRespiratory (Upper) Panel, PCRon 67-36-5608Ayqjhtirmhy (Upper) Panel, PCRComment collected at [facility] Adenovirus Not detected Bordetella parapertussis Not detected Chlamydia pneumoniae Not detected Coronavirus 229E Not detected Coronavirus HKU1 Not detected Coronavirus NL63 Not detected Coronavirus OC43 Not detected Influenza A Not detected Influenza B Not detected Human Metapneumovirus Not detected Mycoplasma pneumoniae Not detected Parainfluenza Virus 1 Not detected Parainfluenza Virus 2 Not detected Parainfluenza Virus 3 Not detected Parainfluenza Virus 4 Not detected Bordetella pertussis-ptxP Not detected Human Rhino/Enterovirus Not detected Resp. Syncytial Virus Not detected COVID-19 Detected/Not Detected Not detected Blank Space FLUA TEST INCLUDES Influenza A tests for the following clinically FLUA TEST INCLUDES significant subtypes: FLUA TEST INCLUDES - Influenza A FLUA TEST INCLUDES - Influenza A H1 FLUA TEST INCLUDES - Influenza A H1 2009 FLUA TEST INCLUDES - Influenza A H3 Blank Space PERFORMED BY: [place] [address] PATHOLOGIST BUSINESS MANAGER KALYN RESENDEZ M.D.[facility] Physician GroupComment on above: Performed By: #### RESP PANEL UPP., BIOFIRECOVNOTDE #### [place] [address] USARespiratory pathogens DNA and RNA panel - Nasopharynx by AVI with non-probe detectionOrdered By: Shauna Man on 15-93-7699Guhzxsmdwup pathogens DNA and RNA panel AVI+non-probe (Nph)Respiratory pathogens DNA and RNA panel - Nasopharynx by AVI with non-probe detectionPromedica Memorial Hospital Vital Signs Date TimeVital SignValuePerforming WplddrkwgMipirjtl26-35-6154 17:48-0400Body .72 Javier Connell EXCAVATOR OPERATOR-C Work Phone: [facility]10-22-2025 17:48-0400 Body mass index (BMI) [Ratio]47.7 kg/w9OcbonwyUsama Connell EXCAVATOR OPERATOR-C Work Phone: [facility]10-22-2025 17:48-0400 Body ernndukqnwt12.4 [degF]Usama Connell EXCAVATOR OPERATOR-C Work Phone: [facility]10-22-2025 17:48-0400 Body gabsia300.54 kgUsama Connell EXCAVATOR OPERATOR-C Work Phone: [facility]10-22-2025 17:48-0400 Diastolic blood wfpovpzj460 mm[Hg]Usama Connell EXCAVATOR OPERATOR-C Work Phone: [facility]10-22-2025 17:48-0400 Heart rate90 /minUsama Salazarillo EXCAVATOR OPERATOR-C Work Phone: [phone]10-22-2025 17:48-0400 Respiratory rate18 /minUsama Salazarillo EXCAVATOR OPERATOR-C Work Phone: [phone]10-22-2025 17:48-0400 SaO2% (BldA) [Mass fraction]95 %Usama Salazarillo EXCAVATOR OPERATOR-C Work Phone: [phone]10-22-2025 17:48-0400 Systolic blood jwxpoavc979 mm[Hg]Usama Connell EXCAVATOR OPERATOR-C Work Phone: [phone]66[facility]07-07-2025 09:39-0400 Body .7 cmDaniel Earl MD Work Phone: [phone] [place], [place] [address]07-07-2025 09:39-0400Body mass index (BMI) [Ratio]48.05 kg/m2Daniel Earl MD Work Phone: [phone])[address] [place], [place] [address]07-07-2025 09:39-0400Body bvawah776.34 kgDaniel Earl MD Work Phone: 1([phone])[address] [place], [place] [address]07-07-2025 09:39-0400Diastolic blood sfrmmtiw625 mm[Hg]Daniel Earl MD Work Phone: 1(104)[address] [place], [place] [address]07-07-2025 09:39-0400Heart rate 73 /minDdago Earl MD Work Phone: [phone] [place], [place] [address]07-07-2025 09:39-1995VmZ4% (BldA) [Mass fraction]93 %Daniel Earl MD Work Phone: [phone])[address] [place], [place] [address]07-07-2025 09:39-0400Systolic blood sslkbxco367 mm[Hg]Daniel Earl MD Work Phone: [phone])[address] [place], [place] [address]06-03-2025 06:55-0400Body ifprgi261.7 cmVmarilin Connell APRN-CAR SERVICER Work Phone: [facility]06-03-2025 06:55-0400Body mass index (BMI) [Ratio]47.83 kg/d7AtxedomUsama Connell APRN-CAR SERVICER Work Phone: [facility]06-03-2025 06:55-0400Body zpkehptqlkv80.7 [degF]Usama Connell APRN-CAR SERVICER Work Phone: [facility]06-03-2025 06:55-0400Body rtzimr576.7 kgUsama Connell APRN-CAR SERVICER Work Phone: [facility]06-03-2025 06:55-0400Diastolic blood mm[Hg]Usama Connell APRN-CAR SERVICER Work Phone: [facility]06-03-2025 06:55-0400Heart rate 88 /minUsama Connell APRN-GENET Work Phone: [facility]06-03-2025 06:55-0400 Respiratory rate16 /minUsama Connell APRN-CAR SERVICER Work Phone: [facility]06-03-2025 06:55-5780VbL6% (BldA) [Mass fraction]95 %Usama Connell APRN-CAR SERVICER Work Phone: [facility]06-03-2025 06:55-0400Systolic blood uofjqwim313 mm[Hg]Usama Connell APRN-CAR SERVICER Work Phone: [facility]05-05-2025 15:49-0400Body hnevnt411.7 cmDaniel Earl MD Work Phone: [facility]05-05-2025 15:49-0400Body mass index (BMI) [Ratio]45.92 kg/m2Daniel Earl MD Work Phone: [phone] [place], [place] [address]5-05-2025 15:49-0400Body .99 kgDaniel Earl MD Work Phone: 1([phone] [place], [place] 9603505-05-2025 15:49-0400Diastolic blood lpunmxni87 mm[Hg]Daniel Earl MD Work Phone: [phone] [place], [place] 3190605-05-2025 15:49-0400Systolic blood axmlcrwq049 mm[Hg]Daniel Earl MD Work Phone: 1([phone])924-[address] [place], [place] 9[address]3-10-2025 07:55-0400Body .7 cmVmarilin Connell 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 Work Phone: [facility]03-10-2025 07:55-0400Body mass index (BMI) [Ratio]46.38 kg/d7IrwhvrfUsama Salazarillo 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 Work Phone: [facility]03-10-2025 07:55-0400Body hpyadqqxfda72.9 [degF]Usama Salazarillo 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 Work Phone: [facility]03-10-2025 07:55-0400Body .35 kgUsama Salazarillo 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 Work Phone: [facility]03-10-2025 07:55-0400Diastolic blood ehwkppoz21 mm[Hg]Usama Salazarillo 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 Work Phone: [facility]03-10-2025 07:55-0400Heart rate 64 /minUsama Salazarillo 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 Work Phone: [facility]03-10-2025 07:55-0400 Respiratory rate20 /minWinifredrie Connell 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 Work Phone: [facility]03-10-2025 07:55-1045AaW1% (BldA) [Mass fraction]95 %Usama Salazarillo 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 Work Phone: [facility]03-10-2025 07:55-0400Systolic blood rpxehhqt487 mm[Hg]Usama Connell APRN-CAR SERVICER Work Phone: [facility]02-25-2025 09:01-0500Body ucqwhc046.7 [facility]02-25-2025 09:01-0500Body mass index (BMI) [Ratio]44.09 kg/m2Pmh [address] [place], [place] 3296302-25-2025 09:01-0500Body lphcue360.[address] [place], [place] 3296311-26-2024 07:10-0500Body aedoti391.7 Dustinmarilin Connell APRN-CAR SERVICER Work Phone: [facility]11-26-2024 07:10-0500Body mass index (BMI) [Ratio]43.91 kg/h7BqwlbyeUsama Connell 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 Work Phone: [facility]11-26-2024 07:10-0500Body iheawgaawry12.39 [degF]Usama Connell 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 Work Phone: [facility]11-26-2024 07:10-0500Body kgUsama Connell 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 Work Phone: [facility]11-26-2024 07:10-0500Diastolic blood rxifxgjy12 mm[Hg]Usama Connell 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 Work Phone: [facility]11-26-2024 07:10-0500Heart rate 69 /minUsama Connell 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 Work Phone: [facility]11-26-2024 07:10-5340SdB2% (BldA) [Mass fraction]95 %Usama Connell 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 Work Phone: [facility]11-26-2024 07:10-0500Systolic blood dqyoamiw285 mm[Hg]Usama Salazarillo 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 Work Phone: [facility]11-13-2024 09:08-0500Body .72 cmProm[facility]ica [facility] Hospital11-13-2024 09:08-0500Body mass index (BMI) [Ratio]43.9 kg/g3RfitjedsyPromedica Memorial Hospital11-13-2024 09:08-0500Body xccjgmxqzpi01.2 [degF][facility]11-13-2024 09:08-0500Body dwnrji739.08 kgPromedica Memorial Hospital11-13-2024 09:08-0500Diastolic blood eksfuimm49 mm[Hg][facility] 08-10-2024 09:08-0500Heart rate94 /[facility] 08-10-2024 09:08-0500Respiratory rate16 /[facility] 08-10-2024 09:08-7074SxW1% (BldA) [Mass fraction]92 %[facility]11-13-2024 09:08-0500Systolic blood mm[Hg][facility]05-28-2024 06:58-0400Body tnhefm519.7 cmVmarilin Connell APRN-CAR SERVICER Work Phone: [facility]05-28-2024 06:58-0400Body mass index (BMI) [Ratio]44.2 kg/s9PenrkunUsama Connell APRN-CAR SERVICER Work Phone: [facility]05-28-2024 06:58-0400Body bxxakuxlstx72.7 [degF]Usama Connell 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 Work Phone: [facility]05-28-2024 06:58-0400Body iynaij471.86 kgUsama Connell APRN-CAR SERVICER Work Phone: [facility]05-28-2024 06:58-0400Diastolic blood qdcdkqys78 mm[Hg]Usama Connell 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 Work Phone: [facility]05-28-2024 06:58-0400Heart rate 58 /minUsama Connell APRN-CAR SERVICER Work Phone: [facility] [employer] Mcbcqu61-76-5918 06:58-0400 Respiratory rate20 /minUsama Connell APRN-CAR SERVICER Work Phone: [facility]05-28-2024 06:58-1587XcV7% (BldA) [Mass fraction]96 %Usama Connell APRN-CAR SERVICER Work Phone: [facility]05-28-2024 06:58-0400Systolic blood auvprihc590 mm[Hg]Usama Connell APRN-CAR SERVICER Work Phone: [facility]01-23-2024 11:19-0500Body sytnsb253.7 Javier Connell APRN-CAR SERVICER Work Phone: [facility]01-23-2024 11:19-0500Body mass index (BMI) [Ratio]42.21 kg/l8FjmpzjkUsama Connell APRN-CAR SERVICER Work Phone: [facility]01-23-2024 11:19-0500Body dijqptqqtul32.5 [degF]Usama Connell APRN-CAR SERVICER Work Phone: [facility]01-23-2024 11:19-0500Body vdpmoc906.92 kgUsama Connell APRN-CAR SERVICER Work Phone: [facility]01-23-2024 11:19-0500Diastolic blood itmjzujm48 mm[Hg]Usama Connell APRN-CAR SERVICER Work Phone: [facility]01-23-2024 11:19-0500Heart rate 70 /minsUama Connell APRN-CAR SERVICER Work Phone: [facility]01-23-2024 11:19-7622PmL6% (BldA) [Mass fraction]95 %Usama Connell APRN-CAR SERVICER Work Phone: [facility]01-23-2024 11:19-0500Systolic blood mm[Hg]Usama Ko 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 Work Phone: [facility] Encounters Encounter DateEncounter TypeCare ProviderFacilityStart: 07-21-2025 End: 70-84-2910Ceolsgykb encounterNiccarola Castillo [facility] Internal Medicine - Family MedicineStart: 07-19-2025 End: 01-29-6212rklonkvgpqQltjukc J Castillo EXCAVATOR OPERATOR-C Work Phone: -[facility] ClydeStart: 07-19-2025 End: 04-43-7079Cjtbjem encounter procedureMonica Cuba MAIL DISTRIBUTION SCHEME EXAMINER-[facility] Work Phone: Start: 06-06-2025 End: 02-25-7168YdzajsIsjw [facility] Internal Medicine - Family MedicineComment on above:Mixed hyperlipidemia; Essential hypertensionStart: 05-10-2025 End: 22-93-1626BfdubcFtqrtjpc [facility] Phys[facility] Internal Medicine - Family MedicineComment on above:Acute deep vein thrombosis (DVT) of right lower extremity, unspecified vein (CMS-HCC)Start: 05-06-2025 End: 58-28-9450Ovityz-up encounterDrhoma Earl MD Work Phone: pLei Physicians Kobi VascularComment on above: Vas venous duplex lwr single rightStart: 05-04-2025 End: 75-54-2565twlesfhjplWSYN R OOSTRAProMedica Sylvan Beach HospitalStart: 04-03-2025 End: 93-03-8531Jqdlsk outpatient visit 15 minutesDrhoma Earl MD Work Phone: p[facility] Hospitalmonae Physicians Kobi VascularComment on above: Acute deep vein thrombosis (DVT) of distal vein of right lower extremity ([facility]- HCC) (Primary Dx)Start: 04-03-2025 End: 23-50-3839traiynmmrbUFIR R OOSTRAProMedica Hale HospitalStart: 03-01-2025 End: 88-46-6468BqphogKzgm R Oostra MD Work Phone: p[facility] Jobst VascularComment on above: Acute deep vein thrombosis (DVT) of distal vein of right lower extremity ([facility]-HCC)Start: 02-28-2025 End: 07-52-1260Hthpwjr encounter procedureValekeli Rojo Ko 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 Work Phone: [facility] Work Phone: Start: 02-28-2025 End: 42-10-8355Bixjabgd preventive med est patient 40-64yrsSheridanaolk Rojo Ko 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 Work Phone: [facility] Internal Medicine - Family MedicineComment on above:Annual physical exam (Primary Dx); Acute deep vein thrombosis (DVT) of right lower extremity, unspecified vein ([facility]-HCC)Start: 02-28-2025 End: 48-64-5017wkcivhzwimYGMOWBCThe [facility]als [facility] Start: 88-62-5403Rwftnhuns for general adult medical examination without abnormal findingsThe Hospitals of [facility] Ambulatory PPGStart: 01-30-2025 End: 97-83-0305Ljfbmv outpatient new 30 minutesDaniel Earl MD Work Phone: p[facility] Jobst VascularComment on above: Acute deep vein thrombosis (DVT) of distal vein of right lower extremity ([facility]- HCC) (Primary Dx)Start: 01-30-2025 End: 74-03-2059mzddhkqemeMWDBN [facility] HospitalStart: 01-29-2025 End: 01-36-2606Bqcwdblau department patient visitUSAMA Rojo [facility] HospitalStart: 12-15-2024 End: 48-27-6589lfitsfnifzSSNSI Jacky SAGASTUMEEPLutheran Medical Center HospitalStart: 12-05-2024 End: 43-27-2855Xvzarv outpatient visit 15 minutesUsama Darrel Ko 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 Work Phone: [facility] Internal Medicine - Family MedicineComment on above:Arthritis of right knee (Primary Dx); Preoperative clearance; Vitamin D deficiencyStart: 12-05-2024 End: 04-98-2281Froanclzmdmc stateUsama Connell APRN-CAR SERVICER Work Phone: [facility] Hospitaltart: 12-05-2024 End: 70-33-0379vjevfgkbzpUUYPESSFormerly [facility] P[facility] Start: 21-68-7570Folyggesw for other preprocedural examinationFort [facility] Hospital PPGStart: 11-22-2024 End: 19-26-5550Sashvpl encounter procedurePm Pre-Admission Testing [address] [place] [address] - Pre AdmitComment on above:Preop examination (Primary Dx); Hypertension, unspecified type; 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[facility]); Primary osteoarthritis of right knee; Asthma, unspecified asthma severity, unspecified whether complicated, unspecified whether persistentStart: 11-22-2024 End: 86-31-7350Ebwiafenoijhs examination donePm75 [address] Streettart: 11-22-2024 End: 78-62-7559nwbckfzywlTAUEE M [facility] Foundationtart: 78-11-0203Obkttvbll for other preprocedural examinationSelect [facility]ty Hospital [facility] UPMCtart: 08-23-2024 End: 86-13-2311qzgqkfxmfkHPARHHPWooster Community Hospitaltart: 08-23-2024 End: 52-40-5315suenfpxkwnBNTEWXNDominion Hospital PPG Start: 08-23-2024 End: 27-66-3078Bsnyfe outpatient visit 15 minutesUsama Connell 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 Work Phone: [facility] Physicians Internal Medicine - Family MedicineComment on above:Essential hypertension (Primary Dx); Mixed hyperlipidemia; Screening for diabetes mellitus (DM)Start: 08-10-2024 End: 98-83-3867Slyrjugs [facility] Donovan BELTRE Work Phone: [facility] [place] Work Phone: Start: 08-10-2024 End: 64-65-4495koryjnezvvGyjiow [facility] Work Phone: Start: 08-10-2024 End: 03-28-7815Xpesupa encounter procedureElena [facility] Work Phone: Start: 02-23-2024 End: 53-47-6374Sywfyxd encounter procedureUsama STANLEY Work Phone: [facility] Work Phone: Start: 02-23-2024 End: 16-75-5947Qrwnhbah preventive med est patient 40-64yrsValekeli STANLEY Work Phone: [facility] Medicine - Family MedicineComment on above:Annual physical exam (Primary Dx); Essential hypertension; Mixed hyperlipidemiaStart: 32-95-0336CvjyayRbyefzjUsama STANLEY Work Phone: [facility] Physicians Family MedicineComment on above: Essential hypertension; Muscle spasms of neckStart: 10-20-2023 End: 48-22-9857Hdqfnz outpatient visit 15 minutesValekeli STANLEY Work Phone: [facility] Physicians Internal Medicine - Family MedicineComment on above:Strain of neck muscle, initial encounter (Primary Dx); Muscle spasms of neckStart: 08-10-2018 End: 61-83-8073Geknjinr examinationValekeli STANLEY Work Phone: [facility] Procedures DateProcedureProcedure DetailPerforming ClinicianStart: 44-26-8655Dqpygg-up visitFollow-Erik Pratt OOSTRAStart: 01-03-5235Kkblm depression screening assessmentValekeli STANLEY Work Phone: Start: 22-39-9005Ecdpv depression screening assessment Daniel Earl MD Work Phone: Start: 48-19-0026Fnnoc depression screening assessment Usama STANLEY Work Phone: Start: 89-91-7850Dxgfa Strep (POC)Start: 08-10-2024 Respiratory Panel (PCR)Shauna Man APRN Work Phone: Start: 46-50-1486Tyfln depression screening assessment Usama Connell APRN-CAR SERVICER Work Phone: Start: 82-01-3122Djvji depression screening assessment Usama Connell APRN-CAR SERVICER Work Phone: Plan of Treatment DateCare ActivityDetailAuthorStart: 27-16-2176Lmnnh BMI ScreeningAdult BMI ScreeningSt. John of God Hospitalca [facility] SystemStart: 99-09-2220Qrtaqyi ScreeningTobacco ScreeningSt. John of God Hospitalca [facility] SystemStart: 74-52-7249Tqxzs BMI Follow Up PlanAdult BMI Follow Up PlanSt. John of God Hospitalca [facility] SystemStart: 81-63-7389Lnjca BMI Screening Adult BMI ScreeningSt. John of God Hospitalca [facility] SystemStart: 65-89-6507Tnnzqyessw Screening Depression ScreeningSt. John of God Hospitalca Health SystemStart: 89-70-8185Umymybw Screening Tobacco ScreeningSt. John of God Hospitalca [facility] SystemStart: 04-29-5021Qntoz BMI Screening Adult BMI ScreeningSt. John of God Hospitalca Health SystemStart: 86-79-2867Ajwxmkk Screening Tobacco ScreeningSt. John of God Hospitalca Health SystemStart: 71-17-6149Mxevzdiziz Screening Depression ScreeningSt. John of God Hospitalca Health SystemStart: 93-39-4934Kilol BMI Follow Up PlanAdult BMI Follow Up PlanSt. John of God Hospitalca [facility] SystemStart: 66-02-9849Yziia BMI ScreeningAdult BMI ScreeningSt. John of God Hospitalca [facility] SystemStart: 08-19-8845Nefiqexagl ScreeningDepression ScreeningSt. John of God Hospitalca [facility] SystemStart: 43-18-8244Tjynwih ScreeningTobacco ScreeningSt. John of God Hospitalca [facility] SystemStart: 61-73-4328Idhpg BMI ScreeningAdult BMI ScreeningSt. John of God Hospitalca [facility] SystemStart: 48-07-8092Vkydxdx ScreeningTobacco ScreeningSt. John of God Hospitalca [facility] SystemStart: 08-29-2025 End: 19-54-7559Qpasmvc encounter procedureProMedica Physicians Internal Medicine - Family MedicineStart: 07-36-9444Nddrw BMI Follow Up PlanAdult BMI Follow Up PlanVidant Pungo Hospitaltart: 64-74-7008Ehmqa BMI ScreeningAdult BMI ScreeningVidant Pungo Hospitaltart: 65-55-0337Xiiexoj ScreeningTobacco ScreeningProMer[facility] SystemStart: 61-07-8061Czfprefwh vaccinationInfluenza VaccineProMercy Health [facility] Hospital SystemStart: 05-04-2025 End: 33-43-3895Mwpmhof encounter mrcacmypy36/07/2025 9:30 AM EDT Appointment [facility] [address] [place], [place] [address] Daniel Earl MD [address] [place] [address] [facility] - VascularStart: 05-02-2025 End: 41-08-7487IG.doppler Lower extremity vein - rightVas venous duplex lwr single right Vascular Ultrasound Routine Acute deep vein thrombosis (DVT) of d istal vein of right lower extremity ([facility]) Expected: 05/02/2025 (Approximate), Expires: 04/03/2026[facility] Work Phone: comment on above:Expected: 05/02/2025 (Approximate), Expires: 04/03/2026Start: 04-03-2025 End: 66-71-1724Aztyvmo encounter fmomdpmhb21/07/2025 9:50 AM EDT Office Visit [facility] [place] [address] Daniel Earl MD [address] [place] [address] [facility] VascularStart: 02-28-2025 End: 04-28-6472Mqglyno encounter beidmcmxp55/03/2025 7:00 AM EDT Office Visit [facility] [address] [place] [phone] Usama Connell, 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 [address] [place] [address] [facility] Physicians Internal Medicine - [facility] MedicineStart: 39-89-3711Hakyz BMI Follow Up PlanAdult BMI Follow Up PlanWhite Hospital SystemStart: 02-12-0061Rezbe BMI ScreeningAdult BMI ScreeningVidant Pungo Hospitaltart: 23-59-0380Nwcsujwrav ScreeningDepression ScreeningVidant Pungo Hospitaltart: 42-31-3270Qerahmp ScreeningTobacco ScreeningVidant Pungo Hospitaltart: 12-15-2024 End: 72-48-2936Rkzcaufjt to same day surgery bvkupb2712/15/2024 8:00 AM EDT - 12/15/2024 10:30 AM EDT Surgery [facility] [address] [place] [address] Tanna Toribio MD [address] [place] [address] REPLACEMENT TOTAL JOINT KNEE [72419 (CPT )][facility] CenterComment on above:REPLACEMENT TOTAL JOINT KNEE [15682 (CPT )]Start: 12-15-2024 End: 94-04-8765Bhlyibbqfo vcyrfkshucxl29/20/2025 8:00 AM EDT Anesthesia Event [facility] [address] [place] [address] Mark Taevras, DO [address] [place] [address] [facility] SurgeryStart: 12-15-2024 End: 29-93-5529Uitnie kne condyle&platu medial&lat compartmentsREPLACEMENT TOTAL JOINT KNEE right knee osteoarthritis 12/15/2024 8:00 AM EDTFREMONT SURGERYStart: 68-62-9351Elzamjdrsk hospital visit by pjyivahij17/20/2025 8:00 AM EDT Hospital Encounter [facility] [address] [place] [address] Tanna Toribio MD [address] [place] [address] [facility] SurgeryStart: 12-05-2024 End: 32-21-8154Jcnnjpw encounter vwsspfwob54/10/2025 8:00 AM EDT Office Visit [facility] [address] [place] [address] Usama Connell, 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 [address] [place] [address] [facility] Physicians Internal Medicine [facility] MedicineStart: 95-80-6484Ccauj BMI Follow Up PlanAdult BMI Follow Up PlanUniversity [facility]als [facility] Center Health SystemStart: 82-52-2717Kmmll BMI ScreeningAdult BMI ScreeningProAultman Hospitalca [facility] SystemStart: 43-62-7618Uivlkizsjz ScreeningDepression ScreeningSt. John of God Hospitalca Health SystemStart: 76-56-9678Tgqmfgq ScreeningTobacco ScreeningWhite Hospital SystemStart: 08-23-2024 End: 75-62-7200Fugmvwl encounter jxllliaed68/26/2024 7:00 AM EST Office Visit [facility] [address] [place] [address] Usama Connell, 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 [address] [place] [address] [facility] Physicians Internal Medicine [facility] MedicineStart: 12-95-2388Cpkhg BMI Follow Up PlanAdult BMI Follow Up PlanWhite Hospital SystemStart: 24-91-8927Hfotlabwc vaccinationInfluenza VaccineVidant Pungo Hospitaltart: 02-23-2024 End: 60-05-3484Idzmynn encounter lcqmdhrwo23/28/2024 7:00 AM EDT Office Visit [facility] [address] [place] [address] Usama Connell, 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 [address] [place] [address] [facility] - [facility] Centertart: 88-95-7721Shloovbyp vaccinationInfluenza VaccineVidant Pungo Hospitaltart: 09-76-6436NFuM,Tdap and Td Vaccines (1 - Tdap)DTaP,Tdap and Td Vaccines (1 - Tdap)[facility] End: 39-86-9990Imtr cardiolipin AB IgG IgA IgMAnti cardiolipin AB IgG IgA IgM Lab Routine Acute deep vein thrombosis (DVT) of distal vein of right lower extremity ([facility]) 1 Occurrences starting 04/03/2025 until 04/03/2026Providence HospitalComment on above:1 Occurrences starting 04/03/2025 until 04/03/2026 End: 70-33-4458Syyv thrombin 3 functAnti thrombin 3 funct Lab Routine Acute deep vein thrombosis (DVT) of distal vein of right lower extremity ([facility]) 1 Occurrences starting 04/03/2025 until 04/03/2026[facility] SystemComment on above:1 Occurrences starting 04/03/2025 until 04/03/2026 End: 99-53-6312Lpue-2 glycoprotein antibodiesBeta-2 glycoprotein antibodies Lab Routine Acute deep vein thrombosis (DVT) of distal vein of rightlower extremity ([facility]) 1 Occurrences starting 04/03/2025 until 04/03/2026Providence HospitalComment on above:1 Occurrences starting 04/03/2025 until 04/03/2026 End: 52-53-1352VSH W Auto Differential panel - BloodCBC auto differential Lab Routine Essential hypertension 1 Occurrences starting 08/23/2024 until [facility] Health SystemComment on above:1 Occurrences starting 08/23/2024 until 08/23/2025 End: 35-58-2867Wlouhxmdqqezo metabolic 2000 panel - Serum or PlasmaComprehensive metabolic panel Lab Routine Essential hypertension 1 Occurrences starting 08/23/2024 until 08/23/2025[facility]99[facility].[employer] Work Phone: Comment on above:1 Occurrences starting 08/23/2024 until 08/23/2025 End: 89-71-9739Q-DimerD-Dimer Lab Routine Acute deep vein thrombosis (DVT) of distal vein of right lower extremity ([facility]) 1 Occurrences starting 04/03/2025 until 04/03/2026[facility] HospitalAmorcyte Beaumont HospitalComment on above:1 Occurrences starting 04/03/2025 until 04/03/2026 End: 23-63-8182RHLGDGWBWH Lab Routine Acute deep vein thrombosis (DVT) of distal vein of right lower extremity ([facility]) 1 Occurrences starting 04/03/2025 until 04/03/2026[facility] HospitalAmorcyte Beaumont HospitalComment on above:1 Occurrences starting 04/03/2025 until 04/03/2026 End: 24-60-9235Aycplp 5 leidenFactor 5 leiden Lab Routine Acute deep vein thrombosis (DVT) of distal vein of right lower extremity ([facility]) 1 Occurrences starting 04/03/2025 until 04/03/2026[facility] HospitalAmorcyte Beaumont HospitalComment on above:1 Occurrences starting 04/03/2025 until 04/03/2026 End: 39-65-5381Biiigbfuqt A1c/Hemoglobin.total in BloodHemoglobin A1c Lab Routine Screening for diabetes mellitus (DM) 1 Occurrences starting 08/23/2024 until 08/23/2025[facility] HospitalAmorcyte Beaumont HospitalComment on above:1 Occurrences starting 08/23/2024 until 08/23/2025 End: 39-99-1097Qcceh 1996 panel - Serum or PlasmaLipid profile Lab Routine Mixed hyperlipidemia 1 Occurrences starting 08/23/2024 until 08/23/2025[facility] HospitalMaxscend TechnologiesComment on above:1 Occurrences starting 08/23/2024 until 08/23/2025 End: 64-88-8443Vqejeuq C activityProtein C activity Lab Routine Acute deep vein thrombosis (DVT) of distal vein of right lower extremity ([facility]) 1 Occurrences starting 04/03/2025 until 04/03/2026[facility] SystemComment on above:1 Occurrences starting 04/03/2025 until 04/03/2026 End: 16-92-9859Sjcfxrp S activityProtein S activity Lab Routine Acute deep vein thrombosis (DVT) of distal vein of right lower extremity ([facility]) 1 Occurrences starting 04/03/2025 until 04/03/2026ProMer[facility] Hospital SystemComment on above:1 Occurrences starting 04/03/2025 until 04/03/2026 End: 81-08-6338Pavflmuhbvi gene mutationProthrombin gene mutation Lab Routine Acute deep vein thrombosis (DVT) of distal vein of right lower extremity ([facility]) 1 Occurrences starting 04/03/2025 until 04/03/2026Pro[facility] Comment on above:1 Occurrences starting 04/03/2025 until 04/03/2026Respiratory pathogens DNA and RNA panel - Nasopharynx by AVI with non-probe detection [facility] Payers DatePayer CategoryPayerPolicy [id number]-pay2023Medicaid [id number] 2.0.1.421102.3.57[id number] 2.0.1.246307.3.57[id number] 2.0.1.990761.3.57[id number] 2.840.1.786526.3.57[id number] 2.840.1.735575.3.57[id number] 2.16.840.1.414904.3.57[id number] 2.16.840.1.341879.3.57[id number] 2.16.840.1.678131.3.57[id number] 2.16.840.1.627578.3.57[id number] 2.16.840.1.819028.3.57[id number] 2.16.840.1.809340.3.57[id number] 2.16.840.1.816312.3.57[id number] 2.16.840.1.371867.3.57[id number] 2.16.840.1.50[id number] 2.16.840.1.071231.3.579.2.531 Social History DateTypeDetailFacilityStart: 08-10-2024 End: 17-73-8159Qmqwhde smoking status NHISNever smoked tobacco (finding) [facility] CenterStart: 10-10-2015 End: 07-79-5287CefWlvq (finding)[facility] CenterStart: 02-66-3422Alk Assigned At [facility] Hospitaltart: 09-02-2022 End: 48-30-2937Ennxixn use and exposureSmokeless tobacco non-userProMedica Health SystemStart: 10-20-2023 End: 20-36-0035Fluooue intakeCurrent non-drinker of alcohol (finding)[facility] SystemStart: 10-09-2021 End: 88-99-0417Qaicoot of Social functionVidant Pungo Hospitaltart: 10-09-2021 End: 38-83-7454Ijhtuw connection and isolation panelProvidence HospitalDo you belong to any clubs or organizations such as temple groups, unions, fraternal or athletic groups, or school groups?YesWhite Hospital SystemAre you now , , , , never or living with a partner?MarriedProvidence HospitalHow often to you have a drink containing alcohol?NeverProvidence HospitalHow many standard drinks containing alcohol do you have on a typical day?Patient declinedProvidence HospitalDo you feel stress - tense, restless, nervous, or anxious, or unable to sleep at night because yourmind is troubled all the time - these days [OSQ]Not at allVidant Pungo Hospitaltart: 67-37-5339Rvfhruxeb33LmbCrfowv Health SystemStart: 11-18-2952Ydq Assigned At BirthNot on fileProvidence HospitalHow hard is it for you to pay for the very basics like food, housing, medical care, and heating Somewhat hardProvidence HospitalHas the electric, gas, oil, or water Ekinops threatened to shut off services in your home in past 12MoNUNC Health Caldwelltart: 02-28-2025 End: 00-77-9167Fxusbegng beverage intakeEx-drinker (finding)[facility] Medical Equipment Procedure CodeEquipment CodeEquipment Original TextEquipment IdentifierDates Component Fem 6 Kn Rt Crcte Rtn Legion Branch Por - Sna - [id number]: 74-33-1023Nlgmuwu Tibia Baseplate W/Jrny [id number]: 03-94-0117Sgthmx Cr High Flexwith Jrny Lock Articular Insert [id number]: 12-15-2024 [place] Branch Porous [id number]: 12-15-2024 Goals DatePatient GoalDesired Activity/StatePersonal health goalComment on above: Evaluation of progress towards goal: just back from [place], plan is home going with and outpt therapy at [facility] Clinical Notes 10-20-2023 to 07-21-2025 Note Date & NfxpCgxkAhutekjl41-18-2293 Miscellaneous Notes* Telephone Encounter - Ban Castillo CMA - 07/21/2025 12:16 PM EDT Patient is having a tight chest and bringing up very little phlegm . He stated his chest hurts to cough He was seen at urgent care and they did not do a chest xr. Can we send an order to [facility] for a chest xr since he is [...] then check one. * Telephone Encounter - aBn aCstillo CMA - 07/21/2025 12:16 PM EDT NOTIFIED PATIENT documented in this encounterProvidence Hospital10-24-2025 Telephone encounter Note* Telephone Encounter - Ban Castillo CMA - 07/21/2025 12:16 PM EDT Patient is having a tight chest and bringing up very little phlegm . He stated his chest hurts to cough He was seen at urgent care and they did not do a chest xr. Can we send an order to [facility] for a chest xr since he is not getting better? [facility]10-24-2025 Telephone encounter Note* Telephone Encounter - Rocky Stauffer DO - [...] not get any better then check one. [facility]10-24-2025 Telephone encounter Note* Telephone Encounter - Ban Castillo CMA - 07/21/2025 12:16 PM EDT NOTIFIED PATIENT [facility]08-09-2025 History of Present illness Narrative* Daniel Earl MD - 05/06/2025 2:27 PM EDT Results noted. Will send Lamsa message. Clot remains on ultrasound. No changes to plan as noted in last clinic note. documented in this encounterProvidence Hospital07-07-2025 History of Present illness Narrative* Daniel Earl MD - 04/03/2025 9:50 AM EDT Images from the original note were not included. OUTPATIENT VASCULAR MEDICINE FOLLOW-UP NOTE: Patient ID: Nik Cutler, 45 y.o. male PCP: Usama Connell APRN-GENET : 1980 CHIEF COMPLAINT: Chief Complaint Patient presents with Follow-up 1 month - general re-evaluation, pt states no concerns HISTORY OF PRESENT ILLNESS: Nik Cutler is a 45 y.o. male with history of myotonic dystrophy, arthritis, asthma,hyperlipidemia, hypertension, obesity, PILY, and other health problems who presents today for follow-up at the [facility] [place] due to DVT. Since last visit, he has been doing okay. He denies any changes in his right leg. He does have someongoing swelling. He is taking apixaban as prescribed. Denies any major bleeding problems. No othercomplaints today. He is here today with his . PAST MEDICAL HISTORY: Past Medical History: Diagnosis Date Arthritis Asthma Deep vein thrombosis ([facility]) 01/2025 rt leg H/O uvulectomy Hyperlipidemia Hypertension 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[facility]) 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[facility]) Obesity Sleep apnea Sleep apnea no c pap PAST SURGICAL HISTORY: Past Surgical History: Procedure Laterality Date BIOPSY MUSCLE SUPERFICIAL / DEEP FINGER AMPUTATION Right little finger FINGER AMPUTATION Right 5th finger JOINT REPLACEMENT 2024 REPLACEMENT TOTAL JOINT KNEE Right 12/15/2024 Performed by Tanna Toribio MD at [facility] SHOULDER ARTHROSCOPY W/ LABRAL REPAIR SHOULDER SURGERY Right Labrum repair TONSILLECTOMY TONSILLECTOMY with uvulectomy TOOTH EXTRACTION PAST FAMILY HISTORY: Family History Problem Relation Age of Onset Anesthesia problems Neg Hx Bleeding Disorder Neg Hx Diabetes Mother Diabetes Father Hypertension Father Asthma Sister Diabetes Maternal Grandmother SOCIAL HISTORY: Lives in [place], [place]. Social History Socioeconomic History Marital status: Spouse name: Not on file Number of children: Not on file Years of education: Not on file Highest education level: Bachelor's degree (e.g., BA, AB, BS) Occupational History Not on file Tobacco Use Smoking status: Never Smokeless tobacco: Never Vaping Use Vaping status: Never Used Substance and Sexual Activity Alcohol use: Not Currently Drug use: Never Sexual activity: Defer Partners: Female Other Topics Concern Caffeine Use No Social History Narrative Merged History Encounter Social Drivers of Health Financial Resource Strain: Low Risk (12/15/2024) Overall Financial Resource Strain (CARDIA) Difficulty of Paying Living Expenses: Not hard at all Food Insecurity: No Food Insecurity (02/28/2025) Hunger Screening Food Insecurity - Worry: Never True Food Insecurity - Inability: Never True Transportation Needs: No Transportation Needs (12/15/2024) PRAPARE - Transportation Lack of Transportation (Medical): No Lack of Transportation (Non-Medical): No Physical Activity: Sufficiently Active (10/09/2021) Exercise Vital Sign Days of Exercise per Week: 5 days Minutes of Exercise per Session: 90 min Stress: No Stress Concern Present (12/15/2024) [employer] [place] [employer] - Occupational Stress Questionnaire Feeling of Stress : Not at all Social Connections: Moderately Integrated (12/15/2024) Social Connection and Isolation Panel [NHANES] Frequency of Communication with Friends and Family: More than three times a week Frequency of Social Gatherings with Friends and Family: More than three times a week Attends Islam Services: More than 4 times per year Active Member of Clubs or Organizations: No Attends Club or Organization Meetings: Never Marital Status: Interpersonal Safety: Not At Risk (12/15/2024) Humiliation, Afraid, Rape, and Kick questionnaire Fear of Current or Ex-Partner: No Emotionally Abused: No Physically Abused: No Sexually Abused: No Housing Instability: Low Risk (12/15/2024) Housing Instability Housing Instability: No MEDICATIONS: Current Outpatient Medications on File Prior to Visit Medication Sig Dispense Refill albuterol (PROVENTIL,VENTOLIN) 2.5 mg /3 mL (0.083 %) nebulizer solution Inhale 3 mL (2.5 mg total)by nebulization every 6 (six) hours as needed for wheezing or shortness of breath. 300 mL 1 albuterol (VENTOLIN HFA) 90 mcg/actuation inhaler Inhale 2 puffs every 6 (six) hours as needed for wheezing or shortness of breath. 18 g 3 apixaban (ELIQUIS) 5 mg tablet Take 1 tablet (5 mg total) by mouth in the morning and 1 tablet (5 mg total) before bedtime. 60 tablet 1 cholecalciferol, vitamin D3, 5,000 units tablet Take 1 tablet (5,000 Units total) by mouth in the morning. 30 each 11 lisinopriL (PRINIVIL,ZESTRIL) 20 mg tablet Take 1 tablet (20 mg total) by mouth in the morning. 90 tablet 3 rosuvastatin (CRESTOR) 10 mg tablet Take 1 tablet (10 mg total) by mouth in the morning. 90 tablet 3 No current facility-administered medications on file prior to visit. ALLERGIES: Allergies Allergen Reactions Prednisone Swelling Prednisone Swelling Sulfa (Sulfonamide Antibiotics) Swelling PHYSICAL EXAMINATION: Vital signs: BP (!) 140/100 (BP Site: Left Wrist, BP Postition: Sitting, BP CUFF SIZE: M (9-13 inches)) Pulse 73 Ht 172.7 cm (5' 8 ) Wt (!) 143.3 kg (316 lb) SpO2 93% BMI 48.05 kg/m General appearance: alert, no acute distress EXT: No TTP in right calf. Trace pitting edema in right calf. LABORATORY DATA: Lab Results Component Value Date WBC 10.1 01/29/2025 HGB 15.3 01/29/2025 HCT 44.5 01/29/2025 MCV 90 01/29/2025 PLT 293 01/29/2025 Lab Results Component Value Date GLU 99 01/29/2025 CALCIUM 8.6 01/29/2025 SODIUM 138 01/29/2025 K 3.7 01/29/2025 CO2 27 01/29/2025 BUN 11 01/29/2025 CREATININE 0.73 01/29/2025 Lab Results Component Value Date ALT 25 01/29/2025 AST 23 01/29/2025 ALKPHOS 67 01/29/2025 No results found for: INR , PROTIME Lab Results Component Value Date DDIMER 512 (H) 01/29/2025 IMAGIN01/30/25 LE duplex: Right: Dilated noncompressible 1 of 2 deep calf muscle veins with hypoechoic intraluminal content and absent spectral Doppler signals. Remaining visualized deep venous segments are compressible with spontaneous phasic spectral Doppler waveforms. Superficial veins are compressible. Left: Non visualization of the saphenofemoral junction due to acoustic shadowing. Remaining visualized deep venous segments are compressible with spontaneous phasic spectral Doppler waveforms. Superficial veins are compressible. BILLING: Total time spent was 20 minutes: Preparing to see the patient (e.g., review of tests) Obtaining and/or reviewing separately obtained history Performing a medically appropriate examination and/or evaluation Counseling and educating the patient/family/caregiver Ordering medications, tests, or procedures Documenting clinical information in the electronic or other health record ASSESSMENT: Nik Cutler is a 45 y.o. male with history of myotonic dystrophy, arthritis, asthma,hyperlipidemia, hypertension, obesity, PILY, and other health problems who presents today for follow-up at the [facility] due to DVT. 1. Right calf DVT in 01/2025, ?provoked by right TKA: - Family history: Father with DVT and PE in his 50s or 60s and remains on a blood thinner. - 12/15/24 Had right TKA. - Placed on aspirin 325mg daily for 30 days afterwards. - No other proceeding risk factors for VTE other than knee replacement surgery. No proceeding hospitalizations, long travel, testosterone use, or COVID diagnosis. - 01/27/25 Developed calf symptoms - 01/28/25 Developed swelling - 01/29/25 Seen in ED for severe right knee pain into calf. D-dimer was 512. Placed on apixaban and outpatient duplex recommended. - 01/30/25 LE duplex showed an acute right deep calf vein (1 of 2) DVT. I saw him for acute visit. Placed on apixaban. 1 month follow-up recommended. - Here today for follow-up. We discussed his history in detail at last visit as summarized above. We discussed multiple things today and at last visit as listed below. First, we had discussed the location of his blood clot at last visit. He was found have a small burden right calf DVT involving 1 of his 2 gastrocnemius veins. Second, we had discussed the cause of his blood clot. His clot could have been provoked by his kneereplacement surgery, but this occurred over 6 weeks ago and before he had symptoms. He does have other risk factors for VTE including family history of VTE, male gender, obesity, and myotonic dystrophy. Third, we had discussed the treatment of blood clots. At this point, the main treatment is anticoagulation. Recommended apixaban for at least 3 months. Fourth, we had reviewed for potential interactions with DOACs (no drug interactions noted, weight not at extremes, recent creatinine checked, adequate PO intake and absorption, no bleeding problems).At last visit, patient was given instructions for management on apixaban including dosing, avoidingcertain medications (i.e., NSAIDs), and to contact us if bleeding complications or planned surgery. Fifth, we discussed duration of anticoagulation at last visit and again today. We would typically plan for a 3 month treatment course for a provoked VTE. However, his clotting seems somewhat delayed after his knee surgery. We will likely plan for hypercoagulable testing down the road and checking aD-dimer off anticoagulation. Sixth, there is potential need for hypercoagulable work-up given his age at diagnosis, family history of blood clots, and weak provoking risk factor for blood clot (delayed diagnosis after TKA). Seventh, we will plan to discuss the pros and cons of repeat imaging today and will plan for repeatultrasound at the 3 month point. RECOMMENDATIONS: - Continue apixaban 5mg BID. - We were planning for a 3-6 month treatment course for a potentially provoked VTE event. Please see discussion above. - Check ultrasound of right leg in 1 month (this would be the 3 month treatment point). - If clot resolved, then we will stop anticoagulation and check labs 1 month later. - If clot remains, then will continue anticoagulation for another 3 months (6 months total) and then stop anticoagulation and check labs 1 month later. - Goal of labs would be to find a strong hypercoagulable condition or elevated D-dimer off anticoagulation that would suggest higher risk of recurrence and potential need for long-term anticoagulation. Ordered labs to be checked down the road including D-dimer off anticoagulation, antiphospholipid syndrome labs, and testing for the 5 main inherited clotting syndromes. - Will likely plan for aspirin 81mg daily after stopping anticoagulation. - Will need aggressive VTE prophylaxis the future during times of risk, especially after surgeries in the future which we discussed today. - RTC To be determined based upon the above results and clinical course. Daniel Earl MD Benign Hematology / Thrombosis / Vascular [facility] Pager: [phone] documented in this encounterProvidence [facility]06-03-[facility]25 History of Present illness Narrative* Usama Connell, 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 - 02/28/2025 7:00 AM EDT Images from the original note were not included. [address] [place] [address] SUBJECTIVE: Patient ID: Nik Cutler is a 44 y.o. male. Chief Complaint Patient presents with Annual Exam Presents for annual physical Annual labs completed in July. Has 4 daughters. Works at [employer]. Does not smoke or consume alcohol. He recently had right total knee replacement in November. In January, he subsequently developed DVT of right leg. He is currently taking Eliquis. States he will need refills. DVT is being monitored by vascular. Annual Exam Associated symptoms include arthralgias. Pertinent negatives include no chest pain, chills, coughing, fatigue, fever or headaches. The following portions of the patient's history were reviewed and updated as appropriate: allergies, current medications, past family history, past medical history, past social history, past surgicalhistory and problem list. Past Surgical History: Procedure Laterality Date BIOPSY MUSCLE SUPERFICIAL / DEEP FINGER AMPUTATION Right little finger FINGER AMPUTATION Right 5th finger JOINT REPLACEMENT 2024 REPLACEMENT TOTAL JOINT KNEE Right 12/15/2024 Performed by Tanna Toribio MD at [facility] SHOULDER ARTHROSCOPY W/ LABRAL REPAIR SHOULDER SURGERY Right Labrum repair TONSILLECTOMY TONSILLECTOMY with uvulectomy TOOTH EXTRACTION Past Medical History: Diagnosis Date Arthritis Asthma Deep vein thrombosis (CMS-HCC) 01/2025 rt leg H/O uvulectomy Hyperlipidemia Hypertension 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CMS-HCC) 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CMS-HCC) Obesity Sleep apnea Sleep apnea no c pap There is no immunization history on file for this patient. REVIEW OF SYSTEMS: Review of Systems Constitutional: Negative for chills, fatigue and fever. HENT: Negative for hearing loss and trouble swallowing. Eyes: Negative for pain and visual disturbance. Respiratory: Negative for cough, chest tightness and shortness of breath. Cardiovascular: Negative for chest pain, palpitations and leg swelling. Gastrointestinal: Negative for blood in stool. Endocrine: Negative for polydipsia, polyphagia and polyuria. Genitourinary: Negative for difficulty urinating, dysuria, flank pain, hematuria, scrotal swelling and testicular pain. Musculoskeletal: Positive for arthralgias. Right knee Skin: Negative. Allergic/Immunologic: Negative. Neurological: Negative for seizures, syncope and headaches. Hematological: Does not bruise/bleed easily. Psychiatric/Behavioral: Negative. PHYSICAL EXAMINATION: Vitals: 02/28/25 0655 BP: 110/70 BP Site: Left Arm BP Postition: Sitting Pulse: 88 Resp: 16 Temp: 36.5 C (97.7 F) TempSrc: Tympanic SpO2: 95% Weight: (!) 142.7 kg (314 lb 9.6 oz) Height: 172.7 cm (5' 8 ) Patient noted to have elevated BMI and the following intervention(s) were applied: encouragement toexercise. Physical Exam Vitals and nursing note reviewed. Constitutional: General: He is not in acute distress. Appearance: He is well-developed. HENT: Head: Normocephalic and atraumatic. Right Ear: Tympanic membrane and external ear normal. Left Ear: Tympanic membrane and external ear normal. Nose: Nose normal. Mouth/Throat: Mouth: Mucous membranes are moist. Pharynx: No oropharyngeal exudate. Eyes: General: No scleral icterus. Right eye: No discharge. Left eye: No discharge. Conjunctiva/sclera: Conjunctivae normal. Pupils: Pupils are equal, round, and reactive to light. Neck: Vascular: No JVD. Cardiovascular: Rate and Rhythm: Normal rate and regular rhythm. Heart sounds: Normal heart sounds. No murmur heard. No friction rub. No gallop. Pulmonary: Effort: Pulmonary effort is normal. No respiratory distress. Breath sounds: Normal breath sounds. Chest: Chest wall: No tenderness. Abdominal: General: Bowel sounds are normal. There is no distension. Palpations: Abdomen is soft. There is no mass. Tenderness: There is no abdominal tenderness. There is no guarding or rebound. Hernia: No hernia is present. Musculoskeletal: General: Tenderness present. Normal range of motion. Cervical back: Normal range of motion and neck supple. Right knee: Swelling present. Legs: Lymphadenopathy: Cervical: No cervical adenopathy. Skin: General: Skin is warm and dry. Capillary Refill: Capillary refill takes less than 2 seconds. Findings: No rash. Neurological: Mental Status: He is alert and oriented to person, place, and time. Deep Tendon Reflexes: Reflexes are normal and symmetric. Psychiatric: Mood and Affect: Mood normal. Behavior: Behavior normal. Thought Content: Thought content normal. Judgment: Judgment normal. ASSESSMENT/PLAN: Nik was seen today for annual exam. Diagnoses and all orders for this visit: Annual physical exam Acute deep vein thrombosis (DVT) of right lower extremity, unspecified vein ([facility]-HCC) - apixaban (ELIQUIS) 5 mg tablet; Take 1 tablet (5 mg total) by mouth in the morning and 1 tablet (5 mg total) before bedtime. Colonoscopy screening discussed today. Risk and benefits of procedure explained. Patient declined colonoscopy. Education regarding Cologuard, he has declined at this time. Up-to-date with wellness labs Body mass index is 47.83 kg/m . Patient noted to have elevated BMI and the following intervention(s) were applied: Discussed current weight today. Consider healthy food choices, portion control. Avoid sugary beverages and high concentrated sweets. Routine exercise regimen encouraged. Reorder Eliquis. It is anticipated he will be on Eliquis for 3 months per vascular. States he has an appointment with vascular next month. Depression: Not at risk (02/28/2025) PHQ-2 PHQ-2 Score: 0 ALL QUESTIONS ANSWERED Total time spent was 30 minutes: Preparing to see the patient (e.g., review of tests) Obtaining and/or reviewing separately obtained history Performing a medically appropriate examination and/or evaluation Counseling and educating the patient/family/caregiver Ordering medications, tests, or procedures Follow-up: 6 months HTN LIZETH Bernal 02/28/25 0730 documented in this encounterProvidence Hospital05-05-2025 History of Present illness Narrative* Daniel Earl MD - 01/30/2025 3:40 PM EDT Images from the original note were not included. OUTPATIENT VASCULAR MEDICINE CONSULTATION: Patient ID: Nik Cutler, 44 y.o. male Referred by: vascular lab PCP: LIZETH Bernal : 1980 REASON FOR CONSULTATION: DVT CHIEF COMPLAINT: Chief Complaint Patient presents with same day Same Day + DVT coming from Vasc Lab HISTORY OF PRESENT ILLNESS: Nik Cutler is a 44 y.o. male with history of myotonic dystrophy, arthritis, asthma,hyperlipidemia, hypertension, obesity, PILY, and other health problems who presents today for acute visit at the [facility] due to DVT. - Family history: Father with DVT and PE in his 50s or 60s and remains on a blood thinner. - 12/15/24 Had right TKA. - Placed on aspirin 325mg daily for 30 days afterwards. - No other proceeding risk factors for VTE other than knee replacement surgery. No proceeding hospitalizations, long travel, testosterone use, or COVID diagnosis. - 01/27/25 Developed calf symptoms - 01/28/25 Developed swelling - 01/29/25 Seen in ED for severe right knee pain into calf. D-dimer was 512. Placed on apixaban and outpatient duplex recommended. - 01/30/25 LE duplex showed an acute right deep calf vein (1 of 2) DVT. Here today for acute visit. Currently, he is doing okay. He did not start apixaban yet as he was told by the emergency room to not take apixaban until his ultrasound was done. He has not picked up the prescription. He does haveright calf pain and swelling. Otherwise, no other major complaints today. He is here today with hiswife. PAST MEDICAL HISTORY: Past Medical History: Diagnosis Date Arthritis Asthma H/O uvulectomy Hyperlipidemia Hypertension 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[facility]-HCC) 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[facility]-HCC) Obesity Sleep apnea PAST SURGICAL HISTORY: Past Surgical History: Procedure Laterality Date FINGER AMPUTATION Right little finger REPLACEMENT TOTAL JOINT KNEE Right 12/15/2024 Performed by Tanna Toribio MD at [facility] SHOULDER SURGERY Right Labrum repair TONSILLECTOMY TOOTH EXTRACTION PAST FAMILY HISTORY: Family History Problem Relation Age of Onset Diabetes Mother Diabetes Father Hypertension Father Asthma Sister Diabetes Maternal Grandmother SOCIAL HISTORY: Lives in [place], [place]. Social History Socioeconomic History Marital status: Spouse name: Not on file Number of children: Not on file Years of education: Not on file Highest education level: Bachelor's degree (e.g., BA, AB, BS) Occupational History Not on file Tobacco Use Smoking status: Never Smokeless tobacco: Never Vaping Use Vaping status: Never Used Substance and Sexual Activity Alcohol use: No Drug use: No Sexual activity: Yes Partners: Female Other Topics Concern Caffeine Use No Social History Narrative Not on file Social Drivers of Health Financial Resource Strain: Low Risk (12/15/2024) Overall Financial Resource Strain (CARDIA) Difficulty of Paying Living Expenses: Not hard at all Food Insecurity: No Food Insecurity (01/30/2025) Hunger Screening Food Insecurity - Worry: Never True Food Insecurity - Inability: Never True Transportation Needs: No Transportation Needs (12/15/2024) PRAPARE - Transportation Lack of Transportation (Medical): No Lack of Transportation (Non-Medical): No Physical Activity: Sufficiently Active (10/09/2021) Exercise Vital Sign Days of Exercise per Week: 5 days Minutes of Exercise per Session: 90 min Stress: No Stress Concern Present (12/15/2024) [employer] [employer] - Occupational Stress Questionnaire Feeling of Stress : Not at all Social Connections: Moderately Integrated (12/15/2024) Social Connection and Isolation Panel [NHANES] Frequency of Communication with Friends and Family: More than three times a week Frequency of Social Gatherings with Friends and Family: More than three times a week Attends Islam Services: More than 4 times per year Active Member of Clubs or Organizations: No Attends Club or Organization Meetings: Never Marital Status: Interpersonal Safety: Not At Risk (12/15/2024) Humiliation, Afraid, Rape, and Kick questionnaire Fear of Current or Ex-Partner: No Emotionally Abused: No Physically Abused: No Sexually Abused: No Housing Instability: Low Risk (12/15/2024) Housing Instability Housing Instability: No MEDICATIONS: Current Outpatient Medications on File Prior to Visit Medication Sig Dispense Refill albuterol (PROVENTIL,VENTOLIN) 2.5 mg /3 mL (0.083 %) nebulizer solution Inhale 3 mL (2.5 mg total)by nebulization every 6 (six) hours as needed for wheezing or shortness of breath. 300 mL 1 albuterol (VENTOLIN HFA) 90 mcg/actuation inhaler Inhale 2 puffs every 6 (six) hours as needed for wheezing or shortness of breath. 18 g 3 apixaban (ELIQUIS) 5 mg tablet Take 2 tablets (10 mg total) by mouth in the morning and 2 tablets (10 mg total) before bedtime. 14 tablet 0 celecoxib (CeleBREX) 100 mg capsule Take 1 capsule (100 mg total) by mouth in the morning and 1 capsule (100 mg total) before bedtime. cholecalciferol, vitamin D3, 5,000 units tablet Take 1 tablet (5,000 Units total) by mouth in the morning. 30 each 11 lisinopriL (PRINIVIL,ZESTRIL) 20 mg tablet Take 1 tablet (20 mg total) by mouth in the morning. 90 tablet 3 rosuvastatin (CRESTOR) 10 mg tablet Take 1 tablet (10 mg total) by mouth in the morning. 90 tablet 3 aspirin 325 mg EC tablet Take 1 tablet (325 mg total) by mouth in the morning. (Patient not taking:Reported on 01/30/2025) No current facility-administered medications on file prior to visit. ALLERGIES: Allergies Allergen Reactions Prednisone Swelling Sulfa (Sulfonamide Antibiotics) Swelling PHYSICAL EXAMINATION: Vital signs: BP (!) 124/98 (BP Site: Left Arm, BP Postition: Sitting, BP CUFF SIZE: L (13-17 inches)) Ht 172.7 cm (5' 8 ) Wt (!) 137 kg (302 lb) BMI 45.92 kg/m General appearance: alert, no acute distress, limping EXT: Mild TTP in right calf with pitting edema LABORATORY DATA: Lab Results Component Value Date WBC 10.1 01/29/2025 HGB 15.3 01/29/2025 HCT 44.5 01/29/2025 MCV 90 01/29/2025 PLT 293 01/29/2025 Lab Results Component Value Date GLU 99 01/29/2025 CALCIUM 8.6 01/29/2025 SODIUM 138 01/29/2025 K 3.7 01/29/2025 CO2 27 01/29/2025 BUN 11 01/29/2025 CREATININE 0.73 01/29/2025 Lab Results Component Value Date ALT 25 01/29/2025 AST 23 01/29/2025 ALKPHOS 67 01/29/2025 No results found for: INR , PROTIME Lab Results Component Value Date DDIMER 512 (H) 01/29/2025 IMAGIN01/30/25 LE duplex: Right: Dilated noncompressible 1 of 2 deep calf muscle veins with hypoechoic intraluminal content and absent spectral Doppler signals. Remaining visualized deep venous segments are compressible with spontaneous phasic spectral Doppler waveforms. Superficial veins are compressible. Left: Non visualization of the saphenofemoral junction due to acoustic shadowing. Remaining visualized deep venous segments are compressible with spontaneous phasic spectral Doppler waveforms. Superficial veins are compressible. BILLING: Total time spent was 31 minutes: Preparing to see the patient (e.g., review of tests) Obtaining and/or reviewing separately obtained history Performing a medically appropriate examination and/or evaluation Counseling and educating the patient/family/caregiver Ordering medications, tests, or procedures Documenting clinical information in the electronic or other health record ASSESSMENT: Nik Cutler is a 44 y.o. male with history of myotonic dystrophy, arthritis, asthma,hyperlipidemia, hypertension, obesity, PILY, and other health problems who presents today for acute visit at the [facility] due to DVT. 1. Acute right calf DVT, ?provoked by right TKA: - Family history: Father with DVT and PE in his 50s or 60s and remains on a blood thinner. - 12/15/24 Had right TKA. - Placed on aspirin 325mg daily for 30 days afterwards. - No other proceeding risk factors for VTE other than knee replacement surgery. No proceeding hospitalizations, long travel, testosterone use, or COVID diagnosis. - 01/27/25 Developed calf symptoms - 01/28/25 Developed swelling - 01/29/25 Seen in ED for severe right knee pain into calf. D-dimer was 512. Placed on apixaban and outpatient duplex recommended. - 01/30/25 LE duplex showed an acute right deep calf vein (1 of 2) DVT. Here today for acute visit. We discussed his history in detail today as summarized above. We discussed multiple things as listed below. First, we discussed the location of his blood clot. He was found have a small burden right calf DVTinvolving 1 of his 2 gastrocnemius veins. Second, we discussed the cause of his blood clot. His clot could have been provoked by his knee replacement surgery, but this occurred over 6 weeks ago and before he had symptoms. He does have other risk factors for VTE including family history of VTE, male gender, obesity, and myotonic dystrophy. Third, we discussed the treatment of blood clots. At this point, the main treatment is anticoagulation. Recommended apixaban at standard dosing. Fourth, we reviewed for potential interactions with DOACs (no drug interactions noted, weight not at extremes, recent creatinine checked, adequate PO intake and absorption, no bleeding problems). Patient was given instructions for management on apixaban including dosing, avoiding certain medications (i.e., NSAIDs), and to contact us if bleeding complications or planned surgery. Fifth, we discussed duration of anticoagulation today. We would typically plan for a 3 month treatment course for a provoked VTE. However, his clotting seems somewhat delayed after his knee surgery. We will likely plan for hypercoagulable testing down the road and checking a D-dimer off anticoagulation. Sixth, there is potential need for hypercoagulable work-up given his age at diagnosis, family history of blood clots, and weak provoking risk factor for blood clot (delayed diagnosis after TKA). Seventh, we will plan to discuss the pros and cons of repeat imaging at next visit. RECOMMENDATIONS: - Discussed diagnosis of right calf DVT. - Start apixaban 10mg BID x 7 days followed by 5mg BID thereafter. Gave samples today and had him take a dose now. Sent prescription to his pharmacy. - Tentatively planning for a 3 month treatment course. - Will plan to check clotting syndrome tests and D-dimer off anticoagulation down the road. - RTC in 1 month. Daniel Earl MD [facility] Hematology / Thrombosis / Vascular [facility] Pager: [phone] documented in this encounterProvidence Hospital05-05-2025 Instructions* Patient Instructions* Daniel Earl MD - 01/30/2025 3:40 PM EDT Take eliquis/apixaban 10mg twice daily for 1 week then 5mg twice daily thereafter. Patient Instructions: (Eliquis/apixaban) Start Eliquis (apixaban) at 10mg twice daily for 7 days then 5mg twice daily. You must take this medication every day at the same to have protection from blood clots. Avoid NSAIDSs and aspirin while on anticoagulation (unless instructed by a physician). If you have increased bleeding complications, please contact us. If you have an upcoming surgery, please contact us. documented in this encounterProvidence Hospital03-10-2025 History of Present illness Narrative* Usama Connell APRN-CAR SERVICER - 12/05/2024 8:00 AM EDT Images from the original note were not included. [address] [facility] [id number] SUBJECTIVE: Patient ID: Nik Cutler is a 44 y.o. male. Chief Complaint Patient presents with preop clearance Presents for preoperative clearance. He is planning on having right total knee surgery per Dr Toribio. Conservative methods have been tried and has not been effective. The following portions of the patient's history were reviewed and updated as appropriate: allergies, current medications, past family history, past medical history, past social history, past surgicalhistory and problem list. Past Surgical History: Procedure Laterality Date FINGER AMPUTATION Right little finger SHOULDER SURGERY Right Labrum repair TONSILLECTOMY TOOTH EXTRACTION Past Medical History: Diagnosis Date Arthritis Asthma H/O uvulectomy Hyperlipidemia Hypertension 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CMS-HCC) 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CMS-HCC) Obesity Sleep apnea There is no immunization history on file for this patient. REVIEW OF SYSTEMS: Review of Systems Constitutional: Negative for chills, fatigue and fever. HENT: Negative for hearing loss and trouble swallowing. Eyes: Negative for pain and visual disturbance. Respiratory: Negative for cough, chest tightness and shortness of breath. Cardiovascular: Negative for chest pain, palpitations and leg swelling. Gastrointestinal: Negative for blood in stool. Endocrine: Negative. Negative for polydipsia, polyphagia and polyuria. Genitourinary: Negative for difficulty urinating, dysuria, flank pain, hematuria, scrotal swelling and testicular pain. Musculoskeletal: Positive for arthralgias. Skin: Negative. Allergic/Immunologic: Negative. Neurological: Negative for seizures, syncope and headaches. Hematological: Does not bruise/bleed easily. Psychiatric/Behavioral: Negative. PHYSICAL EXAMINATION: Vitals: 12/05/24 0755 BP: 138/88 BP Site: Left Arm BP Postition: Sitting Pulse: 64 Resp: 20 Temp: 36.6 C (97.9 F) TempSrc: Oral SpO2: 95% Weight: (!) 138.3 kg (305 lb) Height: 172.7 cm (5' 8 ) Patient noted to have elevated BMI and the following intervention(s) were applied: encouragement toexercise. Component Latest Ref Rng 11/22/2024 Vit D, 25-hydroxy 30 - 100 ng/mL 12.3 (L) Component Latest Ref Rng 11/22/2024 White Blood Cells 4.0 - 11.0 X10E9/L 9.8 RBC count 4.10 - 5.70 X10E12/L 5.19 Hemoglobin 13.0 - 17.0 g/dL 16.1 Hematocrit 39 - 49 % 47.3 MCV 80 - 100 fL 91 MCH 27 - 34 pg 31.1 MCHC 32 - 36 g/dL 34.1 RDW 11.5 - 15.0 % 14.2 Platelets 150 - 450 X10E9/L 225 MPV 7 - 12 fL 9.0 % neutrophils % 70.6 % lymphocytes % 18.2 % monocytes % 7.1 % eosinophils % 3.6 % Basophils % 0.5 Neutrophils Absolute (A) 1.5 - 6.6 X10E9/L 7.0 (H) Lymphocytes Absolute 1.0 - 3.5 X10E9/L 1.8 Monocytes Absolute 0 - 0.9 X10E9/L 0.7 Eosinophils Absolute 0.0 - 0.4 X10E9/L 0.4 Basophils Absolute 0.0 - 0.2 X10E9/L 0.0 Component Latest Ref Rng 11/22/2024 Sodium 134 - 146 mmol/L 142 Potassium 3.5 - 5.0 mmol/L 3.8 Chloride 98 - 109 mmol/L 104 CO2 22 - 32 mmol/L 29 Anion gap 5 - 15 mmol/L 9 BUN 5 - 23 mg/dL 13 Creatinine 0.60 - 1.30 mg/dL 0.86 Glucose 65 - 99 mg/dL 165 (H) Calcium 8.5 - 10.5 mg/dL 8.8 Total Protein 6.0 - 8.0 g/dL 6.6 Albumin 3.2 - 5.3 g/dL 4.1 Alkaline phosphatase 39 - 130 U/L 70 AST 0 - 41 U/L 20 ALT 0 - 40 U/L 29 Total bilirubin 0.3 - 1.2 mg/dL 1.6 (H) eGFR (CKD-EPI)non-race dependent >59 ml/min/1.73sq.m >90 Physical Exam Vitals and nursing note reviewed. Constitutional: General: He is not in acute distress. Appearance: He is well-developed. HENT: Head: Normocephalic and atraumatic. Right Ear: Tympanic membrane and external ear normal. Left Ear: Tympanic membrane and external ear normal. Nose: Nose normal. Mouth/Throat: Mouth: Mucous membranes are moist. Pharynx: No oropharyngeal exudate. Eyes: General: No scleral icterus. Right eye: No discharge. Left eye: No discharge. Conjunctiva/sclera: Conjunctivae normal. Pupils: Pupils are equal, round, and reactive to light. Neck: Vascular: No JVD. Cardiovascular: Rate and Rhythm: Normal rate and regular rhythm. Heart sounds: Normal heart sounds. No murmur heard. No friction rub. No gallop. Pulmonary: Effort: Pulmonary effort is normal. No respiratory distress. Breath sounds: Normal breath sounds. Chest: Chest wall: No tenderness. Abdominal: General: Bowel sounds are normal. There is no distension. Palpations: Abdomen is soft. There is no mass. Tenderness: There is no abdominal tenderness. There is no guarding or rebound. Hernia: No hernia is present. Musculoskeletal: General: No tenderness. Normal range of motion. Cervical back: Normal range of motion and neck supple. Lymphadenopathy: Cervical: No cervical adenopathy. Skin: General: Skin is warm and dry. Capillary Refill: Capillary refill takes less than 2 seconds. Findings: No rash. Neurological: Mental Status: He is alert and oriented to person, place, and time. Deep Tendon Reflexes: Reflexes are normal and symmetric. Psychiatric: Mood and Affect: Mood normal. Behavior: Behavior normal. Thought Content: Thought content normal. Judgment: Judgment normal. ASSESSMENT/PLAN: Nik was seen today for preop clearance. Diagnoses and all orders for this visit: Arthritis of right knee Preoperative clearance Vitamin D deficiency - cholecalciferol, vitamin D3, 5,000 units tablet; Take 1 tablet (5,000 Units total) by mouth in the morning. Reviewed preoperative labs. Vitamin D level is low, 12.3. Start D3 5,000 units oral daily Glucose is elevated at 165. Patient reports he was not fasting for labs. A1c 5.6% July 2024. Patient instructed to hold all NSAIDS and aspirin one week prior to surgery. Patient is medically cleared to proceed with surgery. Body mass index is 46.38 kg/m . Patient noted to have elevated BMI and the following intervention(s) were applied: Discussed current weight today. Consider healthy food choices, portion control. Avoid sugary beverages and high concentrated sweets. Routine exercise regimen encouraged. ALL QUESTIONS ANSWERED Total time spent was 25 minutes: Preparing to see the patient (e.g., review of tests) Obtaining and/or reviewing separately obtained history Performing a medically appropriate examination and/or evaluation Counseling and educating the patient/family/caregiver Ordering medications, tests, or procedures Follow-up: Next scheduled Usama Connell APRN-CAR SERVICER 12/05/24 0857 documented in this encounterSt [facility]bury HospitalRise [id number] Instructions* Patient Instructions* Nava Sauceda RN - 11/22/2024 9:00 AM EST Preoperative Education Checklist- Joints/Spine Surgery date: 12/15/24 Surgery time: 0800 a.m. Arrival time: 0610 a.m. 1. Bring a photo ID and your insurance card with you the day of surgery. You will check in at the main lobby of the [facility]- registration desk is straight ahead as soon as you walkin. Tell them you are here for surgery. 2. If you have a Living Will/Durable Power of [place] for Health Care that is not on file here, please bring a copy the day of surgery. 3. Please shower/tub bath the night before surgery and use wipes as directed. Do not shower the morning of surgery- you will again use wipes when you arrive here at the hospital before getting into your surgical gown. Do not shave the area of your procedure for 2 days prior to your surgery. 4. NO powder, lotion, perfume/cologne, aftershave, make-up, deodorant, or hair products after you have bathed. 5. No nail taiwanese/acrylic on at least one finger. If you are having a hand, wrist, foot, or leg surgery then ALL nail taiwanese and artificial/acrylic nails MUST be removed from that hand or foot. 6. Avoid ALL Aspirin and non-steroidal anti-inflammatory drugs (Ibuprofen, Advil, Aleve, Excedrin, Meloxicam, Celebrex, fish/krill oil, etc.) for 7 days prior to surgery as instructed by your surgeonand/or prescribing doctor. Tylenol IS ALLOWED. If you are on Ticlid, Xarelto, Eliquis, Pradaxa, Plavix or Coumadin, please check with your prescribing doctor for instructions for when to stop them. 7. If you use an inhaler, continue to use it routinely. 8. Nothing to eat or drink (not even water, gum, mints, or hard candy!) AFTER midnight prior to your surgery. 7. Take only medications that you are instructed to on the morning of surgery with a TINY SIP OF WATER. 9. Choose a responsible adult that will be able to drive you home when you are discharged from yourhospital stay for your surgery- no driving or operating any machinery for 24 hours after surgery. 10. When you dress for your appointment, please wear loose fitting clothing that is appropriate to accommodate your surgical area procedure. BRING WITH YOU ANY DEVICES YOU MAY NEED: RAFAELA hose, ice machine, sling/swath, brace or special shoe, crutches, oversized sup-up or button up shirt, CPAP machine if staying overnight. 11. Do NOT wear jewelry, watches, or any piercings or metal for surgery. 12. Do NOT wear contact lenses for surgery- glasses are okay if needed. 13. The anesthesiologist will talk with you the day of surgery and will ask you to sign a Consent Form. 14. Refrain from smoking or any type of tobacco use for at least 8 hours or marijuana for 24 hours prior to arrival for your surgery. 15. If a GREEN BLOOD band is given to you, please bring it with you for the day of surgery. 16. Notify your surgeon if you develop any illness before your surgery. 17. If you are staying overnight, please DO NOT BRING your home medications with your. 18. If you have any questions prior to surgery, please call the Preadmission Testing office at [phone] Mon.-Fri. 7 a.m.-3 p.m. Leave a voicemail if needed. Pre-Surgery Instructions: Medication Instructions albuterol (PROVENTIL,VENTOLIN) 2.5 mg /3 mL (0.083 %) nebulizer solution Take morning of procedure if needed albuterol (VENTOLIN HFA) 90 mcg/actuation inhaler Take morning of procedure if needed celecoxib (CeleBREX) 100 mg capsule Stop taking 1 week prior to procedure lisinopriL (PRINIVIL,ZESTRIL) 20 mg tablet Take morning of procedure rosuvastatin (CRESTOR) 10 mg tablet Stop taking 0 days prior to procedure What to Expect Following Your Surgery After surgery you will be in the recovery room for approximately 1 hour before you are moved to your room. Please let your family and visitors know this. You may be in a bed that has a trapeze overhead to assist you with movement while in bed. After surgery you will have a Sorensen catheter in place (it is usually removed the first day after surgery after your first round of physical therapy has been completed), foot pumps on for circulation and prevention of blood clots, an IV, and possibly a SHIRT BANDER pump and/or a NERVE BLOCK (both used for pain control). We will have you rate your pain on a scale from 0-10, with 10 being the highest possible pain level. We will NOT be able to get rid of ALL of your pain. We strive to keep you comfortable in the 3-5 range on the pain scale. PLEASE let your nurse know if your pain starts to creep up above a level of 5. We use a combination of IV medications, oral medications, ice, and elevation according to the doctor s orders in order to help keep your pain at a tolerable level. The first 24 hours after surgery are very busy! The doctor orders certain routine medications that are to be given up to every 4 hours along with breathing treatments and vital signs being assessed every 4 through the first night of your surgery in order to make sure that you are progressing as expected after surgery. This often makes it hard to sleep well the first night, but it is necessary to make sure that we are providing you the best care possible. We try to coordinate this care with eachdepartment in order to help you get as much uninterrupted sleep as possible. We also have earplugs and eye masks available by request to promote and enhance your sleep time. While here, you may see one of our Hospitalist physicians if your family doctor does not round on patients at [facility] to see you while you are here after surgery. Your orthopedic doctor will be directing all of your care and your discharge, but sometimes they need to consult with primary care/hospitalists in order to better serve you. Having the Hospitalists see you while in the hospital allows your primary care doctor to have more time in their offices, and the hospitalists will be in communication with your primary care doctor with updates on your care. Once discharged from the hospital, you will see your regular primary care physician as directed. While in the hospital you will receive physical therapy from [facility] physical therapists who workin the hospital and they will start seeing you the morning after surgery. Therapy from your orthopedic doctor s office will begin seeing you once you are discharged from the hospital- they are not contracted to provide your treatment while you are in the hospital. You may have spoken with a town planner at your orthopedic doctor s office, but you will stillreview your discharge plan with our town planner from here at the hospital in order to make sure that you understand all of your options prior to going home or to a facility. How to Avoid an Infection after Your Surgery Your doctor will give you specific instructions, but remember: -ALWAYS wash hands before caring for your incision. -No picking, scratching, or rubbing your incision. -No creams, lotion, powder, rubbing alcohol or hydrogen peroxide on the incision (can harm the tissue and slow healing). -Your doctor will give you specific instructions for what type of dressing you will need and how often it will need changed for infection purposes. -No tight clothing on incision. -Do not allow anyone to touch your incision unless they are cleaning, checking, or redressing it (be sure they wash their hands first). -No contact of your incision with pets; avoid sleeping with pets. -Take full course of antibiotic if prescribed for you after surgery- do not stop unless directed earl your physician. You may also be given an antibiotic prior to your surgery to help prevent surgical site infections. -Eat a healthy and varied diet including proteins, fruits, and vegetables to help promote wound healing and keep blood sugars under control if you are diabetic. -Smoking slows the healing process by decreasing the amount of oxygen in your blood that is needed for tissue healing. Try to avoid or stop smoking if possible. LOOK at your incision each morning and each night to check the progress of healing. Some soreness, numbness, itching and/or mild bruising around the incision is normal. Call your doctor if you noticeany of the following: -Increased redness or hardening around the incision area. -Increased pain at the incision site. -Incision feels hot to the touch. -Swelling or pulling apart of the incision edges. -Yellow or green drainage or foul odor coming from the incision. -Bleeding from the incision (apply pressure as needed). -Fever higher than 101 degrees Fahrenheit for more than 4 hours. SHOWERING: Your doctor will give you specific instructions, but remember: -Be careful getting into and out of the shower. -Showers should be quick (5 minutes or less). -Use a clean washcloth to gently wash your incision with soap and water and pat the area dry with aclean towel. -No re-using wash cloths or towels; get a fresh one to clean your incision. -Do not soak in the bathtub, go swimming or use a hot tub (Jacuzzi), or perform activities where your incision is submerged in water or exposed to any fluids or substances until instructed by your doctor. -If your have the sticky strips (steri-strips) over the incision, it is OK to shower with them. Do not remove them. Let them fall off on their own. If you have a question, call your doctor s office. Go to the follow-up appointment with your doctor. documented in [facility]Prov[id number] Miscellaneous Notes* Perioperative Nursing Note - Nava Sauceda RN - 11/22/2024 9:00 AM EST Patient called and instructed to watch [facility] education on total knee replacement prior to his PAT appointment next week. Patient verbalized understanding. * Perioperative Nursing Note - Nava Sauceda RN - 11/22/2024 9:00 AM EST Preoperative Education Checklist- Joints/Spine Surgery date: 12/15/24 Surgery time: 0800 a.m. Arrival time: 0610 a.m. 1. Bring a photo ID and your insurance card with you the day of surgery. You will check in at the main lobby of the [facility]- registration desk is straight ahead as soon as you walkin. Tell them you are here for surgery. 2. If you have a Living Will/Durable Power of [place] for Health Care that is not on file here, please bring a copy the day of surgery. 3. Please shower/tub bath the night before surgery and use wipes as directed. Do not shower the morning of surgery- you will again use wipes when you arrive here at the hospital before getting into your surgical gown. Do not shave the area of your procedure for 2 days prior to your surgery. 4. NO powder, lotion, perfume/cologne, aftershave, make-up, deodorant, or hair products after you have bathed. 5. No nail taiwanese/acrylic on at least one finger. If you are having a hand, wrist, foot, or leg surgery then ALL nail taiwanese and artificial/acrylic nails MUST be removed from that hand or foot. 6. Avoid ALL Aspirin and non-steroidal anti-inflammatory drugs (Ibuprofen, Advil, Aleve, Excedrin, Meloxicam, Celebrex, fish/krill oil, etc.) for 7 days prior to surgery as instructed by your surgeonand/or prescribing doctor. Tylenol IS ALLOWED. If you are on Ticlid, Xarelto, Eliquis, Pradaxa, Plavix or Coumadin, please check with your prescribing doctor for instructions for when to stop them. 7. If you use an inhaler, continue to use it routinely. 8. Nothing to eat or drink (not even water, gum, mints, or hard candy!) AFTER midnight prior to your surgery. 7. Take only medications that you are instructed to on the morning of surgery with a TINY SIP OF WATER. 9. Choose a responsible adult that will be able to drive you home when you are discharged from yourhospital stay for your surgery- no driving or operating any machinery for 24 hours after surgery. 10. When you dress for your appointment, please wear loose fitting clothing that is appropriate to accommodate your surgical area procedure. BRING WITH YOU ANY DEVICES YOU MAY NEED: RAFAELA hose, ice machine, sling/swath, brace or special shoe, crutches, oversized sup-up or button up shirt, CPAP machine if staying overnight. 11. Do NOT wear jewelry, watches, or any piercings or metal for surgery. 12. Do NOT wear contact lenses for surgery- glasses are okay if needed. 13. The anesthesiologist will talk with you the day of surgery and will ask you to sign a Consent Form. 14. Refrain from smoking or any type of tobacco use for at least 8 hours or marijuana for 24 hours prior to arrival for your surgery. 15. If a GREEN BLOOD band is given to you, please bring it with you for the day of surgery. 16. Notify your surgeon if you develop any illness before your surgery. 17. If you are staying overnight, please DO NOT BRING your home medications with your. 18. If you have any questions prior to surgery, please call the Preadmission Testing office at [phone] Mon.-Fri. 7 a.m.-3 p.m. Leave a voicemail if needed. Pre-Surgery Instructions: Medication Instructions albuterol (PROVENTIL,VENTOLIN) 2.5 mg /3 mL (0.083 %) nebulizer solution Take morning of procedure if needed albuterol (VENTOLIN HFA) 90 mcg/actuation inhaler Take morning of procedure if needed celecoxib (CeleBREX) 100 mg capsule Stop taking 1 week prior to procedure lisinopriL (PRINIVIL,ZESTRIL) 20 mg tablet Take morning of procedure rosuvastatin (CRESTOR) 10 mg tablet Stop taking 0 days prior to procedure What to Expect Following Your Surgery After surgery you will be in the recovery room for approximately 1 hour before you are moved to your room. Please let your family and visitors know this. You may be in a bed that has a trapeze overhead to assist you with movement while in bed. After surgery you will have a Sorensen catheter in place (it is usually removed the first day after surgery after your first round of physical therapy has been completed), foot pumps on for circulation and prevention of blood clots, an IV, and possibly a SHIRT BANDER pump and/or a NERVE BLOCK (both used for pain control). We will have you rate your pain on a scale from 0-10, with 10 being the highest possible pain level. We will NOT be able to get rid of ALL of your pain. We strive to keep you comfortable in the 3-5 range on the pain scale. PLEASE let your nurse know if your pain starts to creep up above a level of 5. We use a combination of IV medications, oral medications, ice, and elevation according to the doctor s orders in order to help keep your pain at a tolerable level. The first 24 hours after surgery are very busy! The doctor orders certain routine medications that are to be given up to every 4 hours along with breathing treatments and vital signs being assessed every 4 through the first night of your surgery in order to make sure that you are progressing as expected after surgery. This often makes it hard to sleep well the first night, but it is necessary to make sure that we are providing you the best care possible. We try to coordinate this care with eachdepartment in order to help you get as much uninterrupted sleep as possible. We also have earplugs and eye masks available by request to promote and enhance your sleep time. While here, you may see one of our Hospitalist physicians if your family doctor does not round on patients at [facility] to see you while you are here after surgery. Your orthopedic doctor will be directing all of your care and your discharge, but sometimes they need to consult with primary care/hospitalists in order to better serve you. Having the Hospitalists see you while in the hospital allows your primary care doctor to have more time in their offices, and the hospitalists will be in communication with your primary care doctor with updates on your care. Once discharged from the hospital, you will see your regular primary care physician as directed. While in the hospital you [facility] who [facility] the [facility] and they will start seeing you the morning after surgery. Therapy from your orthopedic doctor s office will begin seeing you once you are discharged from the hospital- they are not contracted to provide your treatment while you are in the hospital. You may have spoken with a town planner at your orthopedic doctor s office, but you will stillreview your discharge plan with our town planner from here at the hospital in order to make sure that you understand all of your options prior to going home or to a facility. How to Avoid an Infection after Your Surgery Your doctor will give you specific instructions, but remember: -ALWAYS wash hands before caring for your incision. -No picking, scratching, or rubbing your incision. -No creams, lotion, powder, rubbing alcohol or hydrogen peroxide on the incision (can harm the tissue and slow healing). -Your doctor will give you specific instructions for what type of dressing you will need and how often it will need changed for infection purposes. -No tight clothing on incision. -Do not allow anyone to touch your incision unless they are cleaning, checking, or redressing it (be sure they wash their hands first). -No contact of your incision with pets; avoid sleeping with pets. -Take full course of antibiotic if prescribed for you after surgery- do not stop unless directed earl your physician. You may also be given an antibiotic prior to your surgery to help prevent surgical site infections. -Eat a healthy and varied diet including proteins, fruits, and vegetables to help promote wound healing and keep blood sugars under control if you are diabetic. -Smoking slows the healing process by decreasing the amount of oxygen in your blood that is needed for tissue healing. Try to avoid or stop smoking if possible. LOOK at your incision each morning and each night to check the progress of healing. Some soreness, numbness, itching and/or mild bruising around the incision is normal. Call your doctor if you noticeany of the following: -Increased redness or hardening around the incision area. -Increased pain at the incision site. -Incision feels hot to the touch. -Swelling or pulling apart of the incision edges. -Yellow or green drainage or foul odor coming from the incision. -Bleeding from the incision (apply pressure as needed). -Fever higher than 101 degrees Fahrenheit for more than 4 hours. SHOWERING: Your doctor will give you specific instructions, but remember: -Be careful getting into and out of the shower. -Showers should be quick (5 minutes or less). -Use a clean washcloth to gently wash your incision with soap and water and pat the area dry with aclean towel. -No re-using wash cloths or towels; get a fresh one to clean your incision. -Do not soak in the bathtub, go swimming or use a hot tub (Jacuzzi), or perform activities where your incision is submerged in water or exposed to any fluids or substances until instructed by your doctor. -If your have the sticky strips (steri-strips) over the incision, it is OK to shower with them. Do not remove them. Let them fall off on their own. If you have a question, call your doctor s office. Go to the follow-up appointment with your doctor. * Perioperative Nursing Note - Nava Sauceda RN - 11/22/2024 9:00 AM EST CHG wipes and surgical instructions reviewed. Patient verbalized understanding. documented in [facility] Nurse Note* Perioperative Nursing Note - Nava Sauceda RN - 11/22/2024 9:00 AM EST Patient called and instructed to watch ANNITA education on total knee replacement prior to his PAT appointment next week. Patient verbalized understanding. [facility]02-25-2025 Nurse Note* Perioperative Nursing Note - Nava Sauceda RN - 11/22/2024 9:00 AM EST Preoperative Education Checklist- Joints/Spine Surgery date: 12/15/24 Surgery time: 0800 a.m. Arrival time: 0610 a.m. 1. Bring a photo ID and your insurance card with you the day of surgery. You will check in at the main lobby of the [facility]- registration desk is straight ahead as soon as you walkin. Tell them you are here for surgery. 2. If you have a Living Will/Durable Power of [place] for Health Care that is not on file here, please bring a copy the day of surgery. 3. Please shower/tub bath the night before surgery and use wipes as directed. Do not shower the morning of surgery- you will again use wipes when you arrive here at the hospital before getting into your surgical gown. Do not shave the area of your procedure for 2 days prior to your surgery. 4. NO powder, lotion, perfume/cologne, aftershave, make-up, deodorant, or hair products after you have bathed. 5. No nail taiwanese/acrylic on at least one finger. If you are having a hand, wrist, foot, or leg surgery then ALL nail taiwanese and artificial/acrylic nails MUST be removed from that hand or foot. 6. Avoid ALL Aspirin and non-steroidal anti-inflammatory drugs (Ibuprofen, Advil, Aleve, Excedrin, Meloxicam, Celebrex, fish/krill oil, etc.) for 7 days prior to surgery as instructed by your surgeonand/or prescribing doctor. Tylenol IS ALLOWED. If you are on Ticlid, Xarelto, Eliquis, Pradaxa, Plavix or Coumadin, please check with your prescribing doctor for instructions for when to stop them. 7. If you use an inhaler, continue to use it routinely. 8. Nothing to eat or drink (not even water, gum, mints, or hard candy!) AFTER midnight prior to your surgery. 7. Take only medications that you are instructed to on the morning of surgery with a TINY SIP OF WATER. 9. Choose a responsible adult that will be able to drive you home when you are discharged from yourhospital stay for your surgery- no driving or operating any machinery for 24 hours after surgery. 10. When you dress for your appointment, please wear loose fitting clothing that is appropriate to accommodate your surgical area procedure. BRING WITH YOU ANY DEVICES YOU MAY NEED: RAFAELA hose, ice machine, sling/swath, brace or special shoe, crutches, oversized sup-up or button up shirt, CPAP machine if staying overnight. 11. Do NOT wear jewelry, watches, or any piercings or metal for surgery. 12. Do NOT wear contact lenses for surgery- glasses are okay if needed. 13. The anesthesiologist will talk with you the day of surgery and will ask you to sign a Consent Form. 14. Refrain from smoking or any type of tobacco use for at least 8 hours or marijuana for 24 hours prior to arrival for your surgery. 15. If a GREEN BLOOD band is given to you, please bring it with you for the day of surgery. 16. Notify your surgeon if you develop any illness before your surgery. 17. If you are staying overnight, please DO NOT BRING your home medications with your. 18. If you have any questions prior to surgery, please call the Preadmission Testing office at [phone] Mon.-Fri. 7 a.m.-3 p.m. Leave a voicemail if needed. Pre-Surgery Instructions: Medication Instructions albuterol (PROVENTIL,VENTOLIN) 2.5 mg /3 mL (0.083 %) nebulizer solution Take morning of procedure if needed albuterol (VENTOLIN HFA) 90 mcg/actuation inhaler Take morning of procedure if needed celecoxib (CeleBREX) 100 mg capsule Stop taking 1 week prior to procedure lisinopriL (PRINIVIL,ZESTRIL) 20 mg tablet Take morning of procedure rosuvastatin (CRESTOR) 10 mg tablet Stop taking 0 days prior to procedure What to Expect Following Your Surgery After surgery you will be in the recovery room for approximately 1 hour before you are moved to your room. Please let your family and visitors know this. You may be in a bed that has a trapeze overhead to assist you with movement while in bed. After surgery you will have a Sorensen catheter in place (it is usually removed the first day after surgery after your first round of physical therapy has been completed), foot pumps on for circulation and prevention of blood clots, an IV, and possibly a SHIRT BANDER pump and/or a NERVE BLOCK (both used for pain control). We will have you rate your pain on a scale from 0-10, with 10 being the highest possible pain level. We will NOT be able to get rid of ALL of your pain. We strive to keep you comfortable in the 3-5 range on the pain scale. PLEASE let your nurse know if your pain starts to creep up above a level of 5. We use a combination of IV medications, oral medications, ice, and elevation according to the doctor s orders in order to help keep your pain at a tolerable level. The first 24 hours after surgery are very busy! The doctor orders certain routine medications that are to be given up to every 4 hours along with breathing treatments and vital signs being assessed every 4 through the first night of your surgery in order to make sure that you are progressing as expected after surgery. This often makes it hard to sleep well the first night, but it is necessary to make sure that we are providing you the best care possible. We try to coordinate this care with eachdepartment in order to help you get as much uninterrupted sleep as possible. We also have earplugs and eye masks available by request to promote and enhance your sleep time. While here, you may see one of our Hospitalist physicians if your family doctor does not round on patients at [facility] to see you while you are here after surgery. Your orthopedic doctor will be directing all of your care and your discharge, but sometimes they need to consult with primary care/hospitalists in order to better serve you. Having the Hospitalists see you while in the hospital allows your primary care doctor to have more time in their offices, and the hospitalists will be in communication with your primary care doctor with updates on your care. Once discharged from the hospital, you will see your regular primary care physician as directed. While in the hospital you [facility] who work[facility] the hospital and they will start seeing you the morning after surgery. Therapy from your orthopedic doctor s office will begin seeing you once you are discharged from the hospital- they are not contracted to provide your treatment while you are in the hospital. You may have spoken with a town planner at your orthopedic doctor s office, but you will stillreview your discharge plan with our town planner from here at the hospital in order to make sure that you understand all of your options prior to going home or to a facility. How to Avoid an Infection after Your Surgery Your doctor will give you specific instructions, but remember: -ALWAYS wash hands before caring for your incision. -No picking, scratching, or rubbing your incision. -No creams, lotion, powder, rubbing alcohol or hydrogen peroxide on the incision (can harm the tissue and slow healing). -Your doctor will give you specific instructions for what type of dressing you will need and how often it will need changed for infection purposes. -No tight clothing on incision. -Do not allow anyone to touch your incision unless they are cleaning, checking, or redressing it (be sure they wash their hands first). -No contact of your incision with pets; avoid sleeping with pets. -Take full course of antibiotic if prescribed for you after surgery- do not stop unless directed earl your physician. You may also be given an antibiotic prior to your surgery to help prevent surgical site infections. -Eat a healthy and varied diet including proteins, fruits, and vegetables to help promote wound healing and keep blood sugars under control if you are diabetic. -Smoking slows the healing process by decreasing the amount of oxygen in your blood that is needed for tissue healing. Try to avoid or stop smoking if possible. LOOK at your incision each morning and each night to check the progress of healing. Some soreness, numbness, itching and/or mild bruising around the incision is normal. Call your doctor if you noticeany of the following: -Increased redness or hardening around the incision area. -Increased pain at the incision site. -Incision feels hot to the touch. -Swelling or pulling apart of the incision edges. -Yellow or green drainage or foul odor coming from the incision. -Bleeding from the incision (apply pressure as needed). -Fever higher than 101 degrees Fahrenheit for more than 4 hours. SHOWERING: Your doctor will give you specific instructions, but remember: -Be careful getting into and out of the shower. -Showers should be quick (5 minutes or less). -Use a clean washcloth to gently wash your incision with soap and water and pat the area dry with aclean towel. -No re-using wash cloths or towels; get a fresh one to clean your incision. -Do not soak in the bathtub, go swimming or use a hot tub (Jacuzzi), or perform activities where your incision is submerged in water or exposed to any fluids or substances until instructed by your doctor. -If your have the sticky strips (steri-strips) over the incision, it is OK to shower with them. Do not remove them. Let them fall off on their own. If you have a question, call your doctor s office. Go to the follow-up appointment with your doctor. [facility]02-25-2025 Nurse Note* Perioperative Nursing Note - Nava Sauceda RN - 11/22/2024 9:00 AM EST CHG wipes and surgical instructions reviewed. Patient verbalized understanding. [facility]11-26-2024 History of Present illness Narrative* Usama Connell APRN-GENET - 08/23/2024 7:00 AM EST Images from the original note were not included. [address] [place] [id number] SUBJECTIVE: Patient ID: Nik Cutler is a 44 y.o. male. Chief Complaint Patient presents with Hypertension Presents for follow up States he is planning on having right knee surgery in the spring. Has been seeing orthopedic speciality for chronic bilateral knee pain. Blood pressure today 138/80. States he has been more complaint taking his medication. Hypertension This is a chronic problem. The current episode started more than 1 year ago. Pertinent negatives include no chest pain, headaches, palpitations or shortness of breath. There are no associated agents to hypertension. Risk factors for coronary artery disease include dyslipidemia, family history, obesity and male gender. Past treatments include CHELE inhibitors. The current treatment provides significant improvement. Hyperlipidemia This is a chronic problem. Recent lipid tests were reviewed and are variable. Exacerbating diseasesinclude obesity. There are no known factors aggravating his hyperlipidemia. Pertinent negatives include no chest pain or shortness of breath. Current antihyperlipidemic treatment includes statins. The current treatment provides significant improvement of lipids. There are no compliance problems. Risk factors for coronary artery disease include dyslipidemia, family history, hypertension, male sex and obesity. The following portions of the patient's history were reviewed and updated as appropriate: allergies, current medications, past family history, past medical history, past social history, past surgicalhistory and problem list. 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 REVIEW OF SYSTEMS: Review of Systems Constitutional: Negative for chills, fatigue and fever. HENT: Negative for hearing loss and trouble swallowing. Eyes: Negative for pain and visual disturbance. Respiratory: Negative for cough, chest tightness and shortness of breath. Cardiovascular: Negative for chest pain, palpitations and leg swelling. Gastrointestinal: Negative for blood in stool. Endocrine: Negative for polydipsia, polyphagia and polyuria. Genitourinary: Negative for difficulty urinating, dysuria, flank pain, hematuria, scrotal swelling and testicular pain. Musculoskeletal: Negative. Skin: Negative. Allergic/Immunologic: Negative. Neurological: Negative for seizures, syncope and headaches. Hematological: Does not bruise/bleed easily. Psychiatric/Behavioral: Negative. PHYSICAL EXAMINATION: Vitals: 08/23/24 0710 BP: 138/90 BP Site: Left Arm BP Postition: Sitting Pulse: 69 Temp: 36.3 C (97.4 F) TempSrc: Tympanic SpO2: 95% Weight: 131 kg (288 lb 12.8 oz) Height: 172.7 cm (5' 8 ) Patient noted to have elevated BMI and the following intervention(s) were applied: encouragement toexercise. Physical Exam Vitals and nursing note reviewed. Constitutional: General: He is not in acute distress. Appearance: He is well-developed. HENT: Head: Normocephalic and atraumatic. Right Ear: Tympanic membrane and external ear normal. Left Ear: Tympanic membrane and external ear normal. Nose: Nose normal. Mouth/Throat: Mouth: Mucous membranes are moist. Pharynx: No oropharyngeal exudate. Eyes: General: No scleral icterus. Right eye: No discharge. Left eye: No discharge. Conjunctiva/sclera: Conjunctivae normal. Pupils: Pupils are equal, round, and reactive to light. Neck: Vascular: No JVD. Cardiovascular: Rate and Rhythm: Normal rate and regular rhythm. Heart sounds: Normal heart sounds. No murmur heard. No friction rub. No gallop. Pulmonary: Effort: Pulmonary effort is normal. No respiratory distress. Breath sounds: Normal breath sounds. Chest: Chest wall: No tenderness. Abdominal: General: Bowel sounds are normal. There is no distension. Palpations: Abdomen is soft. There is no mass. Tenderness: There is no abdominal tenderness. There is no guarding or rebound. Hernia: No hernia is present. Musculoskeletal: General: No tenderness. Normal range of motion. Cervical back: Normal range of motion and neck supple. Lymphadenopathy: Cervical: No cervical adenopathy. Skin: General: Skin is warm and dry. Capillary Refill: Capillary refill takes less than 2 seconds. Findings: No rash. Neurological: Mental Status: He is alert and oriented to person, place, and time. Deep Tendon Reflexes: Reflexes are normal and symmetric. Psychiatric: Mood and Affect: Mood normal. Behavior: Behavior normal. Thought Content: Thought content normal. Judgment: Judgment normal. ASSESSMENT/PLAN: Nik was seen today for hypertension. Diagnoses and all orders for this visit: Essential hypertension - Comprehensive metabolic panel; Future - CBC auto differential; Future - lisinopriL (PRINIVIL,ZESTRIL) 20 mg tablet; Take 1 tablet (20 mg total) by mouth in the morning. Mixed hyperlipidemia - Lipid profile; Future - rosuvastatin (CRESTOR) 10 mg tablet; Take 1 tablet (10 mg total) by mouth in the morning. Screening for diabetes mellitus (DM) - Hemoglobin A1c; Future Body mass index is 43.91 kg/m . Patient noted to have elevated BMI and the following intervention(s) were applied: Discussed current weight today. Consider healthy food choices, portion control. Avoid sugary beverages and high concentrated sweets. Routine exercise regimen encouraged. HTN. 138/80. States he has been more complaint taking his medication every AM. Continue lisinopril 20 mg oral daily. CBC, CMP Mixed hyperlipidemia. Lipid panel today. Continue rosuvastatin 10 mg oral daily Labs drawn in office today ALL QUESTIONS ANSWERED Total time spent was 25 minutes: Preparing to see the patient (e.g., review of tests) Obtaining and/or reviewing separately obtained history Performing a medically appropriate examination and/or evaluation Counseling and educating the patient/family/caregiver Ordering medications, tests, or procedures Follow-up: Annual physical LIZETH Bernal 08/23/24 0810 documented in this encounterProv[facility]11-13-[facility]24 Evaluation note* Diagnosis Onset Date Resolution Status Admit Date Laryngitis acuteAugust 10, 2024 9:05amViral URI with coughacuteAugust 10, 2024 9:05amContact with or suspected exposure to severe acute respiratory syndrome noneactiveAugust 10, 2024 9:05amSore throatnoneactiveAugust 10, 2024 9:05am [facility] Work Phone: [phone] 750-348705-28-2024 History of Present illness Narrative* LIZETH Bernal - 02/23/2024 7:00 AM EDT Images from the original note were not included. [address] [place] [id number] SUBJECTIVE: Patient ID: Nik Cutler is a 43 y.o. male. Chief Complaint Patient presents with Annual Exam Presents for annual physical Annual labs completed in July 2023. . Has 4 daughters. Works at local [employer]. Does not smoke or consume alcohol. Annual Exam Pertinent negatives include no chest pain, chills, coughing, fatigue, fever or headaches. The following portions of the patient's history were reviewed and updated as appropriate: allergies, current medications, past family history, past medical history, past social history, past surgicalhistory and problem list. 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 REVIEW OF SYSTEMS: Review of Systems Constitutional: Negative for chills, fatigue and fever. HENT: Negative for hearing loss and trouble swallowing. Eyes: Negative for pain and visual disturbance. Respiratory: Negative for cough, chest tightness and shortness of breath. Cardiovascular: Negative for chest pain, palpitations and leg swelling. Gastrointestinal: Negative for blood in stool. Endocrine: Negative for polydipsia, polyphagia and polyuria. Genitourinary: Negative for difficulty urinating, dysuria, flank pain, hematuria, scrotal swelling and testicular pain. Musculoskeletal: Negative. Skin: Negative. Allergic/Immunologic: Negative. Neurological: Negative for seizures, syncope and headaches. Hematological: Does not bruise/bleed easily. Psychiatric/Behavioral: Negative. PHYSICAL EXAMINATION: Vitals: 02/23/24 0658 BP: 124/80 BP Site: Left Arm BP Postition: Sitting Pulse: 58 Resp: 20 Temp: 36.5 C (97.7 F) TempSrc: Oral SpO2: 96% Weight: 131.9 kg (290 lb 11.2 oz) Height: 172.7 cm (5' 8 ) Patient noted to have elevated BMI and the following intervention(s) were applied: encouragement toexercise. Physical Exam Vitals and nursing note reviewed. Constitutional: General: He is not in acute distress. Appearance: He is well-developed. HENT: Head: Normocephalic and atraumatic. Right Ear: Tympanic membrane and external ear normal. Left Ear: Tympanic membrane and external ear normal. Nose: Nose normal. Mouth/Throat: Mouth: Mucous membranes are moist. Pharynx: No oropharyngeal exudate. Eyes: General: No scleral icterus. Right eye: No discharge. Left eye: No discharge. Conjunctiva/sclera: Conjunctivae normal. Pupils: Pupils are equal, round, and reactive to light. Neck: Vascular: No JVD. Cardiovascular: Rate and Rhythm: Normal rate and regular rhythm. Heart sounds: Normal heart sounds. No murmur heard. No friction rub. No gallop. Pulmonary: Effort: Pulmonary effort is normal. No respiratory distress. Breath sounds: Normal breath sounds. Chest: Chest wall: No tenderness. Abdominal: General: Bowel sounds are normal. There is no distension. Palpations: Abdomen is soft. There is no mass. Tenderness: There is no abdominal tenderness. There is no guarding or rebound. Hernia: No hernia is present. Musculoskeletal: General: No tenderness. Normal range of motion. Cervical back: Normal range of motion and neck supple. Lymphadenopathy: Cervical: No cervical adenopathy. Skin: General: Skin is warm and dry. Capillary Refill: Capillary refill takes less than 2 seconds. Findings: No rash. Neurological: Mental Status: He is alert and oriented to person, place, and time. Deep Tendon Reflexes: Reflexes are normal and symmetric. Psychiatric: Mood and Affect: Mood normal. Behavior: Behavior normal. Thought Content: Thought content normal. Judgment: Judgment normal. ASSESSMENT/PLAN: Nik was seen today for annual exam. Diagnoses and all orders for this visit: Annual physical exam Essential hypertension - lisinopriL (PRINIVIL,ZESTRIL) 20 mg tablet; Take 1 tablet (20 mg total) by mouth in the morning. Mixed hyperlipidemia - rosuvastatin (CRESTOR) 10 mg tablet; Take 1 tablet (10 mg total) by mouth in the morning. Body mass index is 44.2 kg/m . Patient noted to have elevated BMI and the following intervention(s) were applied: Discussed current weight today. Consider healthy food choices, portion control. Avoid sugary beverages and high concentrated sweets. Routine exercise regimen encouraged. Wellness labs are due in July. Will collect at 6 month appointment Denies family history of colon cancer. BP stable. Reorder lisinopril. ALL QUESTIONS ANSWERED Total time spent was 30 minutes: Preparing to see the patient (e.g., review of tests) Obtaining and/or reviewing separately obtained history Performing a medically appropriate examination and/or evaluation Counseling and educating the patient/family/caregiver Ordering medications, tests, or procedures Follow-up: 6 months Thursday, 7am. LIZETH Bernal 02/23/24 0751 documented in this encounterProv[facility] Hospital01-23-2024 History of Present illness Narrative* Usama Connell, LIZETH - 10/20/2023 11:30 AM EST Images from the original note were not included. [address] [place] [id number] SUBJECTIVE: Patient ID: Nik Cutler is a 43 y.o. male. Chief Complaint Patient presents with Neck Pain A month. States approximately one month ago, he fell asleep at his desk with neck hyperextended. When he awoke, noticed his neck was aching on both sides. He denies any radicular symptoms. Has tried heat withlimited results. Neck Pain This is a new problem. The current episode started 1 to 4 weeks ago. The problem occurs constantly.The problem has been waxing and waning. Associated with: Fell asleep on desk . neck was hyperextended. The quality of the pain is described as aching and stabbing. The pain is at a severity of 6/10. The symptoms are aggravated by bending, coughing, position and twisting. The pain is Same all the time. Associated symptoms include tingling and weakness. Pertinent negatives include no chest pain, fever, headaches, leg pain, numbness, pain with swallowing, paresis, photophobia, syncope, trouble swallowing or weight loss. He has tried heat and bed rest for the symptoms. The treatment provided no relief. The following portions of the patient's history were reviewed and updated as appropriate: allergies, current medications, past family history, past medical history, past social history, past surgicalhistory and problem list. Past Surgical History: Procedure Laterality Date FINGER AMPUTATION Right little finger SHOULDER SURGERY Right Labrum repair TONSILLECTOMY TOOTH EXTRACTION Past Medical History: Diagnosis Date Asthma H/O uvulectomy Hypertension 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CMS-HCC) 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CMS-HCC) There is no immunization history on file for this patient. REVIEW OF SYSTEMS: Review of Systems Constitutional: Negative for chills, fatigue, fever and weight loss. HENT: Negative for hearing loss and trouble swallowing. Eyes: Negative for photophobia, pain and visual disturbance. Respiratory: Negative for cough, chest tightness and shortness of breath. Cardiovascular: Negative for chest pain, palpitations, leg swelling and syncope. Gastrointestinal: Negative for blood in stool. Endocrine: Negative for polydipsia, polyphagia and polyuria. Genitourinary: Negative for difficulty urinating, dysuria, flank pain, hematuria, scrotal swelling and testicular pain. Musculoskeletal: Positive for neck pain. Skin: Negative. Allergic/Immunologic: Negative. Neurological: Positive for tingling and weakness. Negative for seizures, syncope, numbness and headaches. Hematological: Does not bruise/bleed easily. Psychiatric/Behavioral: Negative. PHYSICAL EXAMINATION: Vitals: 10/20/23 1119 BP: 124/80 BP Site: Left Arm BP Postition: Sitting Pulse: 70 Temp: 36.4 C (97.5 F) TempSrc: Oral SpO2: 95% Weight: 125.9 kg (277 lb 9.6 oz) Height: 172.7 cm (5' 8 ) Patient noted to have elevated BMI and the following intervention(s) were applied: encouragement toexercise. Physical Exam Vitals and nursing note reviewed. Constitutional: General: He is not in acute distress. Appearance: He is well-developed. HENT: Head: Normocephalic and atraumatic. Right Ear: Tympanic membrane and external ear normal. Left Ear: Tympanic membrane and external ear normal. Nose: Nose normal. Mouth/Throat: Mouth: Mucous membranes are moist. Pharynx: No oropharyngeal exudate. Eyes: General: No scleral icterus. Right eye: No discharge. Left eye: No discharge. Conjunctiva/sclera: Conjunctivae normal. Pupils: Pupils are equal, round, and reactive to light. Neck: Vascular: No JVD. Cardiovascular: Rate and Rhythm: Normal rate and regular rhythm. Heart sounds: Normal heart sounds. No murmur heard. No friction rub. No gallop. Pulmonary: Effort: Pulmonary effort is normal. No respiratory distress. Breath sounds: Normal breath sounds. Chest: Chest wall: No tenderness. Abdominal: General: Bowel sounds are normal. There is no distension. Palpations: Abdomen is soft. There is no mass. Tenderness: There is no abdominal tenderness. There is no guarding or rebound. Hernia: No hernia is present. Musculoskeletal: General: Tenderness present. Normal range of motion. Cervical back: Normal range of motion and neck supple. Spasms and tenderness present. Pain with movement present. Back: Lymphadenopathy: Cervical: No cervical adenopathy. Skin: General: Skin is warm and dry. Capillary Refill: Capillary refill takes less than 2 seconds. Findings: No rash. Neurological: Mental Status: He is alert and oriented to person, place, and time. Deep Tendon Reflexes: Reflexes are normal and symmetric. Psychiatric: Mood and Affect: Mood normal. Behavior: Behavior normal. Thought Content: Thought content normal. Judgment: Judgment normal. ASSESSMENT/PLAN: Nik was seen today for neck pain. Diagnoses and all orders for this visit: Strain of neck muscle, initial encounter - methylPREDNISolone (MEDROL, AGNIESZKA,) 4 mg tablet; follow package directions - ibuprofen (MOTRIN) 800 mg tablet; Take 1 tablet (800 mg total) by mouth every 8 (eight) hours as needed for pain. HOLD MELOXICAM Muscle spasms of neck - tiZANidine (ZANAFLEX) 2 mg tablet; Take 1 tablet (2 mg total) by mouth every 6 (six) hours as needed for muscle spasms. May cause drowsiness Start Medrol dose pack as directed Hold Mobic. Start Motrin 800 mg oral every 6 hours PRN. Once neck pain is resolved, stop motrin, resume Mobic Tizanidine 2 mg oral every 6 hours PRN muscle spasms May apply heat or cold x 20 minutes every 2-4 hours as needed Discussed disabilities caregiver. He does see. Dr. Palmer Waters. He plans on making appointment this week. ALL QUESTIONS ANSWERED Total time spent was 25 minutes: Preparing to see the patient (e.g., review of tests) Obtaining and/or reviewing separately obtained history Performing a medically appropriate examination and/or evaluation Counseling and educating the patient/family/caregiver Ordering medications, tests, or procedures Follow up Next scheduled Sooner if no improvement LIZETH Bernal 10/20/23 1149 documented in this encounterWhite [facility] SystemEvaluation note* Diagnosis Onset Date Resolution Status Admit Date Laryngitis acuteNov2023 9:05amViral URI with coughacuteNov2023 9:05amContact with or suspected exposure to severe acute respiratory syndrome noneactiveNovember 2023 9:05amSore throatnoneactiveNovember 2023 9:05am [facility] Work Phone: Evaluation note* Diagnosis Strain of neck muscle, initial encounter- Primary Muscle spasms of neck [facility]* Diagnosis Annual physical exam- Primary Routine general medical examination at a health care facility Essential hypertension Unspecified essential hypertension Mixed hyperlipidemia [facility]* Diagnosis Essential hypertension Unspecified essential hypertension Muscle spasms of neck [facility]* Diagnosis Essential hypertension- Primary Unspecified essential hypertension Mixed hyperlipidemia Screening for diabetes mellitus (DM) Screening for diabetes mellitus [facility]* Diagnosis Preop examination- Primary Unspecified pre-operative examination Hypertension, unspecified type 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CMS-HCC) Myotonic muscular dystrophy Primary osteoarthritis of right knee Asthma, unspecified asthma severity, unspecified whether complicated, unspecified whether persistent Preop examination Unspecified pre-operative examination Hypertension, unspecified type 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CMS-HCC) Myotonic muscular dystrophy Primary osteoarthritis of right knee Preop examination Unspecified pre-operative examination Hypertension, unspecified type 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CMS-HCC) Myotonic muscular dystrophy Primary osteoarthritis of right knee Asthma, unspecified asthma severity, unspecified whether complicated, unspecified whether persistent [facility]* Diagnosis Arthritis of right knee- Primary Preoperative clearance Unspecified pre-operative examination Vitamin D deficiency [facility]* Diagnosis Acute deep vein thrombosis (DVT) of distal vein of right lower extremity (CMS-HCC)- Primary [facility]* Diagnosis Annual physical exam- Primary Routine general medical examination at a health care facility Acute deep vein thrombosis (DVT) of right lower extremity, unspecified vein (CMS-HCC) [facility]* Diagnosis Acute deep vein thrombosis (DVT) of distal vein of right lower extremity (CMS-HCC) [facility]* Diagnosis Acute deep vein thrombosis (DVT) of distal vein of right lower extremity (CMS-HCC)- Primary [facility]* Diagnosis Acute deep vein thrombosis (DVT) of right lower extremity, unspecified vein ([facility]-H[facility]) [facility]* Diagnosis Mixed hyperlipidemia Essential hypertension Unspecified essential hypertension documented [facility] this encounter [facility] noteNo assessment information available [facility] Work Phone: Instructions* Attachments The following attachments cannot be sent through Care Everywhere. * Muscle Spasm ED (Ethiopian) * Cervical Muscle Strain ([place]ian) documented in this [facility]Pro[facility] SystemInstructions* Attachments The following attachments cannot be sent through Care Everywhere. * Yearly Physical for Adults ([place]iopian) documented in this encounterProMer[facility] SystemInstructionsNot on file documented in this encounterWhite Hospital SystemInstructions* Attachments The following attachments cannot be sent through Care Everywhere. * High blood pressure in adults ([place]ian) documented in this encounterWhite Hospital SystemInstructions* Attachments The following attachments cannot be sent through Care Everywhere. * Knee pain ([place]iopian) documented in this encounterProMer[facility] SystemInstructions* Attachments The following attachments cannot be sent through Care Everywhere. * Diet and health (Ethiopian) * Lowering the risk of colon and rectal cancer ([place]ian) documented in this encounterWhite Hospital SystemInstructionsNot on file documented in this encounterWhite Hospital SystemInstructionsNot on file documented in this encounterWhite Hospital SystemInstructionsNot on file documented in this encounterWhite Hospital SystemInstructionsNot on file documented in this encounterWhite Hospital SystemInstructionsNot on file documented in this encounterWhite Hospital SystemReason for referral (narrative)No reason for referral information availableOhio[facility] Hospital Work Phone: Chief Complaint and Reason for Visit Chief Complaint Admit Date Sore throat August 10, 2024 9:05am Cough August 10, 2024 10:00am Reason for Visit Admit Date Laryngitis August 10, 2024 9:05am Viral URI with cough August 10, 2024 9:05am Contact with or suspected ex posure to severe acute respiratory syndrome August 10, 2024 9:05am Sore throat August 10, 2024 9:05am Chief Complaint Admit Date Sore throat August 10, 2024 9:05am Chief Complaint Admit Date Cough, congestion July 19, 2025 5 :45pm Family History Relationship Condition Age at Onset Recorded Date/T ernesto father Malignant neoplasm Unknown motherDiabetes mellitusUnknown Advance Directives Advance Directive Response Recorded Date/ Time Advance Directives No December 07 2:09pm Date ActivatedDate InactivatedComments12/15/2024 10:40 AM12/16/2024 2:51 PMDate ActivatedDate InactivatedComments12/15/2024 10:40 AM12/16/2024 2:51 PM Advance Directive Response Recorded Date/ Time Advance Directives No December 07 3:09pm Summary Purpose Additional Source Comments Care Teams (unrecognized sec tion and content) Team Status: Active Member Role Status Dates PHYSICIAN NO FAMILY Primary Care Provider Active Team Status: Inactive Member Role Status Dates PHYSICIAN NO FAMILY Primary Care Provider Active Start: August 10, 2024 End: August 10Gertrude Delarosa ProviderActiveStart: August 10, 2024 End: August 10, 2024 Team Status: Inactive Member Role Status Dates Shauna Man APRN Attending Provider Active S tart: August 10, 2024 End: August 10, 2024Team MemberRelationshipSpecialtyStart DateEnd Date Usama Connell APRN-GENET [address] [place] [address] PCP - GeneralNurse Practitioner03/26/17Team MemberRelationshipSpecialtyStart Date End Date Usama Connell APRN-GENET [address] [place] [address] PCP - GeneralNurse Practitioner03/26/17Team MemberRelationshipSpecialtyStart Date End Date Usama Connell APRN-GENET [address] [place] [address] PCP - GeneralNurse Practitioner03/26/17 MemberRelationshipSpecialtyStart Date End Date Usama Connell [facility] [address] [place] [address] PCP - GeneralNurse Practitioner03/26/17am MemberRelationshipSpecialtyStart Date End Date Usama Connell [facility] [address] [place] [address] PCP - GeneralNurse Practitioner03/26/17 MemberRelationshipSpecialtyStart Date End Date Usama Connell [facility] [address] [place] [address] PCP - GeneralNurse Practitioner03/26/17 MemberRelationshipSpecialtyStart Date End Date Usama Connell [facility]BUT[facility] [address] [place] [address] PCP - GeneralNurse Practitioner03/26/17am MemberRelationshipSpecialtyStart Date End Date Usama Connell [facility]BUT[facility] PCP - GeneralNurse Practitioner03/26/17am MemberRelationshipSpecialtyStart Date End Date Roberto Carlos Cardoza, MAIL DISTRIBUTION SCHEME EXAMINER-[facility] [address] [place] [address] PCP - GeneralInternal Medicine05/25/25Team MemberRelationshipSpecialtyStart Date End Date Roberto Carlos Cardoza APRN-CNP [address] [place] [address] PCP - [facility] Servicesnal [facility]05/25/25 Team Status: Active Member Role/Relationship Status Dates MIRANDA BernalC Primary Care Provider Active Team Status: Inactive Member Role/Relationship Status Dates Monica Nath , ALEXSANDER Attending Provider Active Start: July 19, 2025 End: July 19, 2025MIRANDA [facility]alUniversity [facility] Care ProviderActive Start: July 19, 2025 End: July 19, 2025Team MemberRelationshipSpecialtyStart DateEnd Date Roberto Carlos Cardoza APRN-GENET [address] [place] [address] PCP - [facility]05/25/25 Goals (unrecognized section and content) Goals may be documented in a n alternate sectionGoals may be documented in an alternate sectionNot on filedocumented as of this encounterNot on filedocumented as of this encounterNot on filedocumented as of this encounterNot on filedocumented as of this encounterNot on filedocumented as of this encounterNot on filedocumented as of this encounterGoals may be documented in an alternate section (unrecognized sect ion and content) No Status Records FoundNo Status Records FoundNo Status Records FoundNo Status Records Found INFORMATION SOURCE (unrecogn ized section and content) DATE CREATED AUTHOR 08/17/2024 [facility] DATE CREATED AUTHOR AUTHOR'S ORGANIZ ATION 02/28/2025 [facility] DATE CREATED AUTHOR AUTHOR'S ORGANIZ ATION 04/06/2025 [facility] DATE CREATED AUTHOR AUTHOR'S ORGANIZ ATION 05/06/2025 [facility] Reason for Visit (unrecogniz ed section and content) ReasonCommentsNeck PainA month.ReasonCommentsAnnual ExamReasonCommentsMed Refill ReasonCommentsHypertensionReasonCommentspreop clearanceReasonCommentssame day Same Day + DVT coming from Vasc LabReasonCommentsFollow-up1 month - general re- evaluation, pt states no concernsReasonOnset DateCommentsMed Epdzdm5306/06/2025 FOR RECORDS PERTAINING TO PATIENTS WHO ARE OR HAVE BEEN ENROLLED IN A CHEMICAL DEPENDENCY/SUBSTANCEABUSE PROGRAM, SOME INFORMATION MAY BE OMITTED. This clinical summary was aggregated from multiple sources. Caution should be exercised in using it in the provision of clinical care. This summary normalizes information from multiple sources, and as a consequence, information in this document may materially change the coding, format and clinical context of patient data. In addition, data may be omitted in some cases. CLINICAL DECISIONS SHOULD BE BASED ON THE PRIMARY CLINICAL RECORDS. [employer] [facility]. provides no warranty or guarantee of the accuracy or completeness of information in this document.
[2025-07-28] MEDS: METHYLPREDNISOLONE SOD SUCC PF 125 MG/2 ML VIAL IVP (14:32)
[2025-07-28] MEDS: IPRATROPIUM/ALBUTEROL SULFATE 3 ML AMPUL.NEB IH (14:42)
== END 2025-07-28 15:18 | disposition home or self-care (01) ==
PROVIDERS: Physician Assistant; Emergency Provider Emergency Medicine; PCP Nurse Practitioner
DX: J45.901 Unspecified asthma with (acute) exacerbation (principal); Z87.01 Personal history of pneumonia (recurrent); Z96.651 Presence of right artificial knee joint; Z86.718 Personal history of other venous thrombosis and embolism
CPT/HCPCS: 36415; 71275; 80053; 84484; 85025; 93005; 94640; 96374; 99285; J2919; Q9967